=== PATIENT | male | born 1955 | race African-American/Black ===

== ENCOUNTER 2017-10-10 21:33 | Inpatient (IN) | payer OTHER ==
[2017-10-10] MEDS ORDERED: Aspirin Low Dose CHEW TAB* 81 MG PO ONE (22:06)
[2017-10-10 22:30] LABS: ABS Basophils 0.2 10^3/ul (0-0.2); ABS Eosinophils 0.4 10^3/ul (0-0.6); ABS Monocytes 0.9 10^3/ul (0-0.8); ABS Neutrophils 7.4 10^3/ul (1.5-7.7); ABS Nucleated RBC 0 10^3/ul; Eosinophil % 3.7 % (0-6); Hematocrit 30 % (42-52); Hemoglobin 10.1 g/dl (14.0-18.0); Lymphocyte % 18.3 % (25-47); Mean Corpuscular HGB Conc 33 g/dl (31-36); Mean Corpuscular Hemoglobin 30 pg (27-31); Mean Corpuscular Volume 89 fL (80-94); Mean Platelet Volume 7 um3 (7.4-10.4); Nucleated Red Blood Cells % 0; Platelet Count 260 10^3/ul (150-450); Red Cell Distribution Width 15 % (10.5-15)
[2017-10-10 22:40] LABS: INR 2.62 (0.77-1.02)
[2017-10-10 22:45] LABS: EGFR Non-African American 15.8 (>60)
[2017-10-10] MEDS ORDERED: Furosemide IV* 10 MG/ML 2 ML VIAL (20 MG) IV ONE (22:52)
[2017-10-10] MEDS ORDERED: Acetaminophen TAB* 325 MG PO PRN (23:09)
[2017-10-10] MEDS ORDERED: Furosemide IV* 10 MG/ML 10 ML VIAL (100 MG) IV ONE (23:20)
[2017-10-10] MEDS: Morphine INJ* 2 MG/ML 1 ML SYRINGE (TWO MG - NEW SYRINGE VERSION) IV PRN (23:36)
[2017-10-11] MEDS ORDERED: Albuterol HFA INHALER* 8 gm MDI INH PRN (01:02)
--- NOTE | 2017-10-11 01:53 | ED ---
Mike Adams Gabriel, scribed for Adonis Richardson on 10/10/17 at 2207 . HPI Chest Pain - HPI Summary HPI Summary: This patient is a 62 year old M BIBA from half-way to [facility] accompanied by correction officers with a chief complaint of CP since earlier today. Symptoms aggravated by exertion. Patient reports lower back pain, LE edema, inability to move right leg due to pain in groin, and pain down both arms. Patient has a Hx of CHF, kidney failure, COPD, had a triple bypass, and PNA recently. Patient was seen at [facility] and sent here for CHF evaluation. - History of Current Complaint Chief Complaint: EDChestWallPain Time Seen by Provider: 10/10/17 21:58 Hx Obtained From: Patient, Medical Records Onset/Duration: Started Hours Ago - earlier today, Still Present Timing: Constant Initial Severity: Moderate Current Severity: Moderate Pain Intensity: 0 Chest Pain Radiates: Yes Chest Pain Radiates To:: Back, Arm Aggravating Factor(s): Exertion Associated Signs and Symptoms: Positive: Chest Pain, Other: - ower back pain, LE edema, inability to move right leg due to pain in groin, and pain down both arms. - Allergy/Home Medications Allergies/Adverse Reactions: Allergies Allergy/AdvReac Type Severity Reaction Status Date / Time VALERIE Inhibitors Allergy Swelling Verified 10/10/17 21:57 Home Medications: Home Medications Albuterol HFA INHALER* [Ventolin HFA Inhaler*] 1 puff INH Q4H PRN 10/10/17 [ History Confirmed 10/10/17] Aspirin EC Low Dose* [Ecotrin EC Low Dose 81 MG*] 81 mg PO DAILY 10/10/17 [ History Confirmed 10/10/17] Atorvastatin* [Lipitor*] 20 mg PO DAILY 10/10/17 [History Confirmed 10/10/17] Calcium Carbonate-Cholecalcife [Calcium 500+D 500-200 mg-Unit] 1 tab PO BID [History Confirmed 10/10/17] Carvedilol TAB* [Coreg TAB*] 25 mg PO BID 10/10/17 [History Confirmed 10/10/17] Ferrous Sulfate TAB* 325 mg PO BID 10/10/17 [History Confirmed 10/10/17] Fluticas/Salmet 115/21 HFA(NF) [Advair HFA 115/21 (NF)] 1 puff INH 10/10/17 [ History] Furosemide TAB* [Lasix TAB*] 80 mg PO DAILY 10/10/17 [History Confirmed 10/10/17 ] Insulin GLARGINE(*) [Lantus(*)] 15 units SUBCUT QPM 10/10/17 [History Confirmed 10/10/17] Insulin GLARGINE(*) [Lantus(*)] 25 units SUBCUT QAM 10/10/17 [History Confirmed 10/10/17] Isosorbide Mononitrate ER TAB* [Imdur ER TAB*] 30 mg PO DAILY 10/10/17 [History Confirmed 10/10/17] Minerin Cream* [Minerin*] 1 TOPICAL 10/10/17 [History] Warfarin TAB(*) [Coumadin TAB(*)] 6 mg PO DAILY@1700 10/10/17 [History Confirmed 10/10/17] amLODIPine TAB* [Norvasc 5 mg TAB*] 10 mg PO DAILY 10/10/17 [History Confirmed 10/10/17] PMH/Surg Hx/FS Hx/Imm Hx Cardiovascular History: Reports: Hx Congestive Heart Failure, Hx Coronary Artery Disease Respiratory History: Reports: Hx Chronic Obstructive Pulmonary Disease (COPD), Hx Pneumonia History: Reports: Hx Chronic Renal Failure Neurological History: Denies: Hx CVA - Surgical History Surgery Procedure, Year, and Place: triple bypass 03/27 - Immunization History Date of Tetanus Vaccine: unk Date of Influenza Vaccine: unk Infectious Disease History: No Infectious Disease History: Denies: Traveled Outside the [place] in Last 30 Days - Family History Known Family History: Positive: Cardiac Disease, Hypertension - Social History Occupation: Unemployed Lives: Jail - half-way Alcohol Use: None Substance Use Type: Reports: None Smoking Status (MU): Heavy Every Day Tobacco Smoker Review of Systems Positive: Chest Pain Positive: Edema - Le bilat , Other - lower back pain, arm pain, and RLE pain All Other Systems Reviewed And Are Negative: Yes Physical Exam - Summary Physical Exam Summary: Appearance: Well appearing, no pain distress Skin: warm, dry, reflects adequate perfusion Head/face: normal Eyes: EOMI, CARINA ENT: normal Neck: supple, non-tender Respiratory: patient has bilateral rales Cardiovascular: RRR, pulses symmetrical Abdomen: non-tender, soft Bowel: present Musculoskeletal: bilateral pedal edema strength/ROM intact Neuro: normal, sensory motor intact, A&Ox3 Triage Information Reviewed: Yes Vital Signs On Initial Exam: Initial Vitals Temp Pulse Resp BP Pulse Ox 98.0 F 66 16 130/61 96 10/10/17 21:40 10/10/17 21:40 10/10/17 21:40 10/10/17 21:40 10/10/17 21:40 Vital Signs Reviewed: Yes - [place] Coma Scale Coma Scale Total: 15 Diagnostics - Vital Signs Vital Signs Temp Pulse Resp BP Pulse Ox 10/10/17 21:40 98.0 F 66 16 130/61 96 - Laboratory Result Diagrams: 10/10/17 22:21 10/10/17 22:21 Lab Statement: Any lab studies that have been ordered have been reviewed, and results considered in the medical decision making process. - Radiology CXR Radiology Interpretation Completed By: ED Physician - No acute disease - EKG 22:02 Cardiac Rate: NL EKG Rhythm: Sinus Rhythm - at 70 BPM EKG Interpretation: inverse T waves in the anterior lateral leads - Additional Comments Diagnostic Additional Comments: Venous Doppler study reveals per radiologist, right common femoral vein proximal greater saphenous vein profunda femoral vein popliteal vein posterior tibial vein have normal compressibility normal color flow and normal spectral Doppler wave forms. ED physician has reviewed this report. Chest Pain Course/Dx - Course Assessment/Plan: This patient is a 62 year old M BIBA from half-way to [facility] accompanied by correction officers with a chief complaint of CP since earlier today. Patient reports lower back pain, LE edema, inability to move right leg due to pain in groin, and pain down both arms. An EKG reveals inverse T waves in the anterior lateral leads. CXR reveals, No acute disease. Venous Doppler study reveals per radiologist, right common femoral vein proximal greater saphenous vein profunda femoral vein popliteal vein posterior tibial vein have normal compressibility normal color flow and normal spectral Doppler wave forms. Bloodwork was obtained. In the ED course the patient was given Lasix, ASA, morphine, and tylenol. Patient will be admitted with follow up from Dr. Mcdowell. The patient is agreeable with this plan. - Chest Pain Differential Diagnosis/HQI/PQRI: Acute FL, ACS, CHF, Lower Respiratory Infection , Pulmonary Edema - Diagnoses Provider Diagnoses: Ruled out for myocardial infarction, Chest pain, Renal failure, CHF ( congestive heart failure) - Provider Notifications Discussed Care Of Patient With: Cy Mcdowell Time Discussed With Above Provider: 23:13 Instructed by Provider To: Admit As Inpatient - Critical Care Time Critical Care Time: 30-74 min Discharge - Discharge Plan Condition: Fair Disposition: ADMITTED TO [facility] The documentation as recorded by the Mike briones Gabriel accurately reflects the service I personally performed and the decisions made by Debra nunez Emmanuel.
[2017-10-11] MEDS ORDERED: Dextrose 50% Syringe 50 ML* 25 GM/50 ML SYRINGE IV PUSH PRN (02:48)
[2017-10-11 03:41] LABS: ABS Basophils 0.1 10^3/ul (0-0.2); ABS Eosinophils 0.4 10^3/ul (0-0.6); ABS Monocytes 1.1 10^3/ul (0-0.8); ABS Neutrophils 7.8 10^3/ul (1.5-7.7); ABS Nucleated RBC 0 10^3/ul; Eosinophil % 3.4 % (0-6); Hematocrit 27 % (42-52); Hemoglobin 8.9 g/dl (14.0-18.0); Mean Corpuscular HGB Conc 32 g/dl (31-36); Mean Corpuscular Hemoglobin 29 pg (27-31); Mean Corpuscular Volume 90 fL (80-94); Mean Platelet Volume 8 um3 (7.4-10.4); Nucleated Red Blood Cells % 0; Platelet Count 237 10^3/ul (150-450); Red Blood Count 3.05 10^6/ul (4.0-5.4); Red Cell Distribution Width 16 % (10.5-15); White Blood Count 11.4 10^3/ul (3.5-10.8)
[2017-10-11 03:54] LABS: EGFR Non-African American 15.2 (>60)
--- NOTE | 2017-10-11 08:16 | RAD ---
INDICATION: Shortness of breath COMPARISON: None. TECHNIQUE: Single AP portable view of the chest was obtained. FINDINGS: Image quality is compromised due to the relative inferiority of a portable chest x-ray. There are sternotomy wires noted. The heart and mediastinum exhibit normal size and contour. There are hazy densities overlying the mid-level and lower lung slightly worse in the left than the right. The pulmonary vasculature is mildly engorged and indistinct. Visualized bones are normal for the patient's age. IMPRESSION: In the correct clinical setting the chest x-ray findings could be compatible with exacerbation of congestive heart failure.
[2017-10-11] MEDS: Mometasone/Formoter 100/5 MDI INH SCH ×2 (08:18→21:09)
--- NOTE | 2017-10-11 08:21 | RAD ---
HISTORY: Congestive heart failure TECHNIQUE: Multiple transverse and longitudinal ultrasound images were obtained of the veins of the right lower extremity using grayscale, color Doppler, and spectral Doppler imaging with and without compression and with augmentation. FINDINGS: VEINS: The common femoral vein, deep femoral vein, femoral vein and popliteal vein are compressible throughout their course, with normal flow on color Doppler imaging and normal response to augmentation on spectral Doppler imaging. SOFT TISSUES: Grossly normal. No large popliteal fossa cyst was identified. IMPRESSION: No sonographic evidence of deep vein thrombosis.
[2017-10-11] MEDS ORDERED: Potassium Chlor TAB* 20 MEQ TAB.ER PO ONE (08:30)
[2017-10-11] MEDS ORDERED: Furosemide IV* 10 MG/ML 10 ML VIAL (100 MG) IV ONE (08:30)
[2017-10-11] MEDS: Ferrous Sulfate TAB* 325 MG PO SCH ×2 (09:01→20:54)
[2017-10-11] MEDS: Atorvastatin* 20 MG TAB PO SCH (09:01)
[2017-10-11] MEDS: amLODIPine TAB* 5 MG PO SCH (09:01)
[2017-10-11] MEDS: Aspirin EC Low Dose* 81 MG TAB.EC PO SCH (09:01)
[2017-10-11] MEDS: Isosorbide Mononitrate ER TAB* 30 MG PO SCH (09:01)
[2017-10-11] MEDS: Carvedilol TAB* 25 MG PO SCH ×2 (09:01→20:54)
[2017-10-11] MEDS: Calcium/Vitamin D TAB 250/125* TAB PO SCH ×2 (09:01→20:54)
[2017-10-11] MEDS: Insulin LISPRO* 1 UNITS UNIT SUBCUT SCH ×4 (09:05→20:51)
[2017-10-11] MEDS: Insulin GLARGINE(*) 1 UNITS UNIT SUBCUT SCH (09:06)
[2017-10-11] MEDS: Moisturizing CREAM* 120 GM JAR TOPICAL SCH ×2 (09:12→20:59)
--- NOTE | 2017-10-11 11:59 | HP ---
HISTORY AND PHYSICAL: DATE OF ADMISSION: 10/10/17. TIME OF EVALUATION: 11 p.m. PRIMARY CARE PROVIDER: [facility]. CHIEF COMPLAINT: Shortness of breath/weight gain sent by long-term facility to evaluate for CHF with no history of coronary disease. HISTORY OF PRESENT ILLNESS: Mr. Wright is a 62-year-old gentleman who comes to the hospital from [facility] and was sent there for evaluation because of shortness of breath and weight gain. The patient was sent to rule out congestive heart failure. There was a noted history of coronary disease status post 3-vessel coronary artery bypass in 2014. I do not have details about the anatomy of that procedure. The patient states that he has not had the stress test or other cardiac workup since. He denies any history of cardiac catheterization. Now the patient apparently gained 8 pounds between September 19 and October 10. On the he was 218 pounds and then he weighed 226 pounds today. The patient is on oral Lasix in the outpatient setting at a substantial dose (80 mg daily). The patient is on a salt- controlled diet, I presume. Patient has a history of congestive heart failure, renal failure (documented creatinine of 4 earlier this year), COPD and recently had pneumonia. PAST MEDICAL HISTORY: 1. COPD. 2. Renal failure - CKD stage 3/4. 3. History of congestive heart failure. 4. History of triple bypass/CAD. 5. History of pneumonia recently. 6. Gait disorder - uses a wheelchair for long distances. 7. Nephrotic syndrome likely secondary to diabetes. 8. Insulin-dependent type 2 diabetes. 9. Peripheral vascular disease. 10. Tobacco abuse. 11. Tuberculosis/treated. ADMISSION/OUTPATIENT MEDICATIONS: 1. Lasix 80 mg by mouth daily. 2. Norvasc 10 mg by mouth daily. 3. Lipitor 20 mg by mouth daily. 4. Ferrous sulfate 325 mg by mouth twice daily. 5. Calcium with D (500/200) twice daily. 6. Zantac 150 mg by mouth twice daily. 7. Imdur 30 mg by mouth daily. 8. Coreg 25 mg by mouth twice daily. 9. Enteric-coated aspirin 81 mg by mouth daily. 10. Coumadin 6 mg q.h.s. 11. Lantus 25 units in the morning and 15 units in the evening. 12. Advair 100/50 two puffs twice daily. 13. Albuterol 2 puffs 4 times daily p.r.n. shortness of breath. 14. Eucerin cream daily for dry skin. ALLERGIES: VALERIE INHIBITORS. FAMILY HISTORY: Reviewed, but noncontributory in this 62-year-old gentleman with known coronary disease who presents with potentially congestive heart failure symptoms. SOCIAL HISTORY: The patient is incarcerated. He smokes. He does not drink. He is in long-term. He is full code. PHYSICAL EXAMINATION GENERAL APPEARANCE: Elderly appearing man. He is in a [facility]. He is handcuffed. He is surrounded by 2 police officers, clearly a prisoner. In no apparent distress. He is not in pain at this time. He is awake, alert and oriented x3. VITAL SIGNS: Temperature afebrile at 98 degrees Fahrenheit, blood pressure 130s /60s, pulse 60s to 70s, respirations 16 to 19 and unlabored, oxygen saturation 96% on room air. HEENT: Oropharynx is clear. Mucous membranes are moist. NECK: No bruits appreciated. Midline trachea. Normal thyroid. LUNGS: Chest clear breast sounds anteriorly and posteriorly. No increased work of breathing. No tachypnea noted. Lungs were clear at the bases posteriorly. HEART: Regular rate and rhythm. No murmurs appreciated. Chest wall: Sternal scar noted from history of CABG. Sternum is nontender to palpation, though he states there was some midsternal discomfort, although this was denied earlier. ABDOMEN: Soft, nontender and obese. Bowel sounds present. SKIN: Dry and intact. EXTREMITIES: Without clubbing, cyanosis. 1+ edema bilaterally - not extensive. ADMISSION DATA: White blood cell count 11, hemoglobin 10.1, platelets 260. INR 2.62 (on Coumadin). Blood chemistry was significant for the BUN and creatinine ratio of 60 to 3.9 for ratio of 15.4, glucose 112. Troponin initially 0.05, repeat 0.06, third repeat 0.05 (assumed low positivity based on renal failure), BNP elevated 553 (again unclear to interpret based on renal failure), total protein and albumin 6.9/3.5, toxicology negative for alcohol or other substances. EKG, normal sinus rhythm. There are lateral ST/T-wave inversions and ischemic- appearing changes with no baseline to which I can compared. Venous Doppler studies of bilateral lower extremities did not show any DVT. Chest x-ray was reviewed directly by me and showed vascular fullness and congestion perhaps consistent with fluid overload/congestive heart failure. IMPRESSION: Mr. Wright is a 62-year-old with a known coronary disease status post CABG of few years ago without many subsequent cardiac issues although on a substantial outpatient cardiac regimen who now presents with a weight gain and a clinical presentation and chest radiologic findings consistent with congestive heart failure and fluid overload. PLAN BY MEDICAL PROBLEM: 1. Congestive heart failure exacerbation. I will start patient on IV diuretics. He received IV Lasix 20 mg in the emergency room along with he has been given an extra 60 mg IV considering his substantial outpatient dose of 80. It is true that with bowel edema/intestinal edema, Lasix absorption might be impaired, so smaller doses of IV Lasix might work, but I do think that it is likely beneficial to him to get a good early diuresis to reverse the course of any early CHF. Right now, the patient has minimal to no oxygen requirement and is compensating well. We will continue his other cardiac medications including Norvasc, Lipitor, Imdur, Coreg, and aspirin. 2. For his insulin-dependent diabetes, we will continue his Lantus regimen and I will add Humalog sliding scale and provide a consistent carbohydrate diet. 3. For COPD, we will continue his Advair inhaler and albuterol inhaler as per outpatient regimen. 4. Continue iron supplementation for iron-deficiency anemia as well as his Zantac for GERD. 5. In terms of further ischemic workup, I think that can be delayed to the outpatient setting. I think he is clearly fluid overloaded at this point. I think, if he sheds a few pounds and his symptoms resolve, further evaluations like an echocardiogram can wait for subsequent days or into the outpatient setting, which is also true for a stress test. Again, I think the low positivity of the troponins is more to do with his poor renal clearance and cardiac strain than to do with an ischemic process, given the nature of his presenting complaints. 6. Full code. 7. Surrogate decision maker is the [facility]. TIME SPENT: Total time taken to admit Mr. Wright was 65 minutes, greater than half the time spent at the bedside going over the history and physical examination face- to-face with the patient. [id number]/[facility] #: [id number] [facility]
[2017-10-11] MEDS ORDERED: Metolazone TAB* 5 MG PO ONE (17:28)
--- NOTE | 2017-10-11 17:58 | PN ---
Subjective Date of Service: 10/11/17 Interval History: Patient seen and examined. Still SOB, cannot tolerate off O2 even at rest. Still with chest pressure with inspiration. Denies n/v, denies fatigue, denies headache. Guards at bedside. Objective Active Medications: Acetaminophen (Tylenol Tab*) 650 mg PO Q4H PRN PRN Reason: FEVER/PAIN Last Admin: 10/11/17 01:57 Dose: 650 mg Albuterol (Ventolin Hfa Inhaler*) 1 puff INH Q4H PRN PRN Reason: SHORTNESS OF BREATH Amlodipine Besylate (Norvasc Tab*) 10 mg PO DAILY [facility] Last Admin: 10/11/17 09:01 Dose: 10 mg Aspirin (Aspirin Ec Low Dose*) 81 mg PO DAILY [facility] Last Admin: 10/11/17 09:01 Dose: 81 mg Atorvastatin Calcium (Lipitor*) 20 mg PO DAILY [facility] Last Admin: 10/11/17 09:01 Dose: 20 mg Calcium/Vitamin D (Oscal D Tab 250/125*) 2 tab PO BID [facility] Last Admin: 10/11/17 09:01 Dose: 2 tab Carvedilol (Coreg Tab*) 25 mg PO BID [facility] Last Admin: 10/11/17 09:01 Dose: 25 mg Dextrose (D50w Syringe 50 Ml*) 12.5 gm IV PUSH .FOR FS < 60 - SS PRN PRN Reason: FS < 60 Ferrous Sulfate (Ferrous Sulfate Tab*) 325 mg PO BID [facility] Last Admin: 10/11/17 09:01 Dose: 325 mg Insulin Glargine (Lantus(*)) 25 units SUBCUT QAM [facility] Last Admin: 10/11/17 09:06 Dose: 25 units Insulin Glargine (Lantus(*)) 15 units SUBCUT QPM [facility] Insulin Human Lispro (Humalog*) 0 units SUBCUT ACHS [facility] PRN Reason: Protocol Last Admin: 10/11/17 12:42 Dose: 9 units Isosorbide Mononitrate (Imdur Er Tab*) 30 mg PO DAILY [facility] Last Admin: 10/11/17 09:01 Dose: 30 mg Mometasone Furoate/Formoterol Fumar (Dulera 100/5 Mdi*) 2 puff INH BID [facility] PRN Reason: Protocol Last Admin: 10/11/17 08:18 Dose: 2 puff Morphine Sulfate (Morphine Inj (Syringe)*) 2 mg IV Q4H PRN PRN Reason: PAIN Last Admin: 10/10/17 23:36 Dose: 2 mg Multi-Ingredient Ointment (Hydrocerin*) 1 applic TOPICAL BID [facility] Last Admin: 10/11/17 09:12 Dose: 1 applic Warfarin Sodium (Coumadin Tab(*)) 6 mg PO DAILY@1700 [facility] PRN Reason: Protocol Vital Signs - 8 hr 10/11/17 10/11/17 11:47 16:10 Temperature 98.1 F 97.9 F Pulse Rate 71 72 Respiratory 20 16 Rate Blood Pressure 147/59 117/50 (mmHg) O2 Sat by Pulse 98 98 Oximetry Oxygen Devices in Use Now: Nasal Cannula Appearance: Alert, NAD Ears/Nose/Mouth/Throat: Mucous Membranes Moist, - - poor dentition Neck: NL Appearance and Movements; NL JVP, Trachea Midline Respiratory: Symmetrical Chest Expansion and Respiratory Effort - rales right base, diminished left, no wheeze Cardiovascular: NL Sounds; No Murmurs; No JVD, RRR - sternotomy scar noted Extremities: No Edema, No Clubbing, Cyanosis - ankle shackles in place, neurovascularly intact, skin intact Skin: No Rash or Ulcers Neurological: Alert and Oriented x 3, NL Sensation, NL Muscle Strength and Tone Nutrition: Taking PO's Result Diagrams: 10/11/17 03:25 10/11/17 03:25 Microbiology and Other Data: Microbiology 10/11/17 01:26 Nasal Screen MRSA (PCR)(OLESYA) - Final Nasal Mrsa Negative EKG Data: EKG INTERPRETATION ECG Report Patient Name JAZMYN THOMAS [id number] Birthdate 1955 Sex M Order Number [id number] Date of ECG 10/11/2017 15:09:33 Interpretation Sinus rhythm.normal P axis, V-rate 60- 99 Borderline prolonged DE interval.DE >202, V-rate 50- 90 Probable left atrial enlargement.P >50mS, <-0.10mV V1 Abnrm T, consider ischemia, anterolateral lds.T <-0.20mV, I aVL V2-V6 Baseline wander in lead(s) V2 - ABNORMAL ECG - ECG NEEDS E-SIGNING Please go to [email or web address] website to view the EKG image Assess/Plan/Problems-Billing Assessment: This is a 62 year old AA male patient, currently incarcerated, with hx sig for CAD/CABG, HF, CKD, DM, that experienced ongoing SOB with significant acute weight gain that has been admitted for acute (on chronic??) CHF. - Patient Problems (1) CKD (chronic kidney disease) stage 4, GFR 15-29 ml/min Code(s): N18.4 - CHRONIC KIDNEY DISEASE, STAGE 4 (SEVERE) SNOMED Code(s): 883414101 Comment: - Bump up in creat from 4-5 from agressive diuresis (4 is baseline) - continue to monitor daily (2) CHF (congestive heart failure) Code(s): I50.9 - HEART FAILURE, UNSPECIFIED SNOMED Code(s): 65112247 Comment: - s/p lasix IV 80/60/20 IVP - Will try metolazone one dose now - Trend BNP - Continuous O2 - ECHO in AM, no records to compare - Low Na diet, nutrition consult (3) IDDM (insulin dependent diabetes mellitus) Code(s): E11.9 - TYPE 2 DIABETES MELLITUS WITHOUT COMPLICATIONS; Z79.4 - APPLICATION SECURITY DEVELOPER (CURRENT) USE OF INSULIN SNOMED Code(s): 06790861 Comment: - BG AC and HS - Last A1c 8.2 - Continue insulin regimen with SS coverage (4) S/P CABG x 3 Code(s): Z95.1 - PRESENCE OF AORTOCORONARY BYPASS GRAFT SNOMED Code(s): 418036699 Comment: - CABG in 2014 - No records from facility - Continue Coreg, ASA, statin Status and Disposition: Remain inpatient for additional diuresis and ECHO. Counseling and/or Coordination of Care Minutes: coordinated with patient and YESSICA Antoine.
[2017-10-11] MEDS ORDERED: Insulin GLARGINE(*) 1 UNITS UNIT SUBCUT SCH (18:00)
[2017-10-11] MEDS: Warfarin TAB(*) 6 MG PO SCH (18:11)
[2017-10-12 05:56] LABS: ABS Basophils 0.1 10^3/ul (0-0.2); ABS Eosinophils 0.4 10^3/ul (0-0.6); ABS Monocytes 1.1 10^3/ul (0-0.8); ABS Neutrophils 6.6 10^3/ul (1.5-7.7); ABS Nucleated RBC 0.01 10^3/ul; Eosinophil % 4.3 % (0-6); Hematocrit 29 % (42-52); Hemoglobin 9.5 g/dl (14.0-18.0); Lymphocyte % 19.7 % (25-47); Mean Corpuscular HGB Conc 33 g/dl (31-36); Mean Corpuscular Hemoglobin 29 pg (27-31); Mean Corpuscular Volume 89 fL (80-94); Mean Platelet Volume 8 um3 (7.4-10.4); Nucleated Red Blood Cells % 0.1; Platelet Count 257 10^3/ul (150-450); Red Blood Count 3.28 10^6/ul (4.0-5.4); Red Cell Distribution Width 16 % (10.5-15); White Blood Count 10.3 10^3/ul (3.5-10.8)
[2017-10-12 06:05] LABS: EGFR Non-African American 14.4 (>60)
[2017-10-12] MEDS: Mometasone/Formoter 100/5 MDI INH SCH ×2 (07:59→20:07)
[2017-10-12] MEDS: Insulin LISPRO* 1 UNITS UNIT SUBCUT SCH ×4 (08:51→22:10)
[2017-10-12] MEDS: Calcium/Vitamin D TAB 250/125* TAB PO SCH ×2 (08:54→20:10)
[2017-10-12] MEDS: Isosorbide Mononitrate ER TAB* 30 MG PO SCH (08:54)
[2017-10-12] MEDS: Aspirin EC Low Dose* 81 MG TAB.EC PO SCH (08:55)
[2017-10-12] MEDS: Atorvastatin* 20 MG TAB PO SCH (08:55)
[2017-10-12] MEDS: Carvedilol TAB* 25 MG PO SCH ×2 (08:55→20:10)
[2017-10-12] MEDS: amLODIPine TAB* 5 MG PO SCH (08:55)
[2017-10-12] MEDS: Ferrous Sulfate TAB* 325 MG PO SCH ×2 (08:55→20:10)
[2017-10-12] MEDS: Insulin GLARGINE(*) 1 UNITS UNIT SUBCUT SCH ×2 (08:56→18:05)
--- NOTE | 2017-10-12 11:38 | PN ---
Subjective Date of Service: 10/12/17 Interval History: Patient seen and examined. States he feels a little better but still SOB, has not been out of bed much. Also states his substernal chest burning and left sided chest pain that he felt before arrival is improved, but says the quality of that pain did feel the same as when he needed the bypass surgery two years ago. Denies headache, moderate fatigue noted, and some general weakness, feeling winded. Denies any further complaints. Objective Active Medications: Acetaminophen (Tylenol Tab*) 650 mg PO Q4H PRN PRN Reason: FEVER/PAIN Last Admin: 10/11/17 01:57 Dose: 650 mg Albuterol (Ventolin Hfa Inhaler*) 1 puff INH Q4H PRN PRN Reason: SHORTNESS OF BREATH Amlodipine Besylate (Norvasc Tab*) 10 mg PO DAILY [facility] Last Admin: 10/12/17 08:55 Dose: 10 mg Aspirin (Aspirin Ec Low Dose*) 81 mg PO DAILY [facility] Last Admin: 10/12/17 08:55 Dose: 81 mg Atorvastatin Calcium (Lipitor*) 20 mg PO DAILY [facility] Last Admin: 10/12/17 08:55 Dose: 20 mg Calcium/Vitamin D (Oscal D Tab 250/125*) 2 tab PO BID [facility] Last Admin: 10/12/17 08:54 Dose: 2 tab Carvedilol (Coreg Tab*) 25 mg PO BID [facility] Last Admin: 10/12/17 08:55 Dose: 25 mg Dextrose (D50w Syringe 50 Ml*) 12.5 gm IV PUSH .FOR FS < 60 - SS PRN PRN Reason: FS < 60 Ferrous Sulfate (Ferrous Sulfate Tab*) 325 mg PO BID [facility] Last Admin: 10/12/17 08:55 Dose: 325 mg Insulin Glargine (Lantus(*)) 25 units SUBCUT QAM [facility] Last Admin: 10/12/17 08:56 Dose: 25 units Insulin Glargine (Lantus(*)) 25 units SUBCUT QPM [facility] Insulin Human Lispro (Humalog*) 0 units SUBCUT ACHS [facility] PRN Reason: Protocol Last Admin: 10/12/17 08:51 Dose: Not Given Isosorbide Mononitrate (Imdur Er Tab*) 30 mg PO DAILY [facility] Last Admin: 10/12/17 08:54 Dose: 30 mg Mometasone Furoate/Formoterol Fumar (Dulera 100/5 Mdi*) 2 puff INH BID [facility] PRN Reason: Protocol Last Admin: 10/12/17 07:59 Dose: 2 puff Morphine Sulfate (Morphine Inj (Syringe)*) 2 mg IV Q4H PRN PRN Reason: PAIN Last Admin: 10/10/17 23:36 Dose: 2 mg Multi-Ingredient Ointment (Hydrocerin*) 1 applic TOPICAL BID [facility] Last Admin: 10/11/17 20:59 Dose: 1 applic Warfarin Sodium (Coumadin Tab(*)) 6 mg PO DAILY@1700 [facility] PRN Reason: Protocol Last Admin: 10/11/17 18:11 Dose: 6 mg Vital Signs - 8 hr 10/12/17 10/12/17 10/12/17 04:09 07:41 08:00 Temperature 98.2 F 97.9 F Pulse Rate 71 65 Respiratory 20 20 20 Rate Blood Pressure 149/69 121/50 (mmHg) O2 Sat by Pulse 98 96 Oximetry Oxygen Devices in Use Now: Nasal Cannula Appearance: Alert, NAD Ears/Nose/Mouth/Throat: NL Teeth, Lips, Gums, Clear Oropharnyx, Mucous Membranes Moist Neck: NL Appearance and Movements; NL JVP, Trachea Midline Respiratory: Symmetrical Chest Expansion and Respiratory Effort, - - rales improved, no wheeze appreciated, clear at the apices Cardiovascular: NL Sounds; No Murmurs; No JVD, RRR Abdominal: NL Sounds; No Tenderness; No Distention Skin: No Rash or Ulcers Neurological: Alert and Oriented x 3, NL Muscle Strength and Tone Nutrition: Taking PO's Result Diagrams: 10/12/17 05:13 10/12/17 05:13 Microbiology and Other Data: Microbiology 10/11/17 01:26 Nasal Screen MRSA (PCR)(OLESYA) - Final Nasal Mrsa Negative EKG Data: EKG INTERPRETATION ECG Report Patient Name JAZMYN THOMAS [id number] Birthdate 1955 Sex M Order Number [id number] Date of ECG 10/11/2017 15:09:33 Interpretation Sinus rhythm.normal P axis, V-rate 60- 99 Borderline prolonged WI interval.WI >202, V-rate 50- 90 Probable left atrial enlargement.P >50mS, <-0.10mV V1 Abnrm T, consider ischemia, anterolateral lds.T <-0.20mV, I aVL V2-V6 Baseline wander in lead(s) V2 - ABNORMAL ECG - ECG NEEDS E-SIGNING Please go to [email or web address] website to view the EKG image Assess/Plan/Problems-Billing Assessment: This is a 62 year old AA male patient, currently incarcerated, with hx sig for CAD/CABG, HF, CKD, DM, that experienced ongoing SOB with significant acute weight gain that has been admitted for acute (on chronic??) CHF. - Patient Problems (1) CKD (chronic kidney disease) stage 4, GFR 15-29 ml/min Code(s): N18.4 - CHRONIC KIDNEY DISEASE, STAGE 4 (SEVERE) SNOMED Code(s): 435794475 Comment: - Initial bump up in creat from 4-5 from agressive diuresis (4 is baseline), back to 4.25 today - Continue to monitor (2) CHF (congestive heart failure) Code(s): I50.9 - HEART FAILURE, UNSPECIFIED SNOMED Code(s): 02509885 Comment: - s/p lasix IV 80/60/20 IVP and metolazone 5mg with clinical improvement - Recommend Bumex and metolazone?, as it appears he may be refractory to escalating doses of lasix at this point, will reassess after ECHO - Continuous O2, walk on and off and check sats - BNP trending down - ECHO today to asses LV function, no records to compare - Low Na diet, nutrition consult (3) IDDM (insulin dependent diabetes mellitus) Code(s): E11.9 - TYPE 2 DIABETES MELLITUS WITHOUT COMPLICATIONS; Z79.4 - MEDICAL SCHEDULER (CURRENT) USE OF INSULIN SNOMED Code(s): 36435801 Comment: - BG AC and HS - Last A1c 8.2 - Continue insulin regimen with SS coverage, will increase lantus to 25 at night, sugars high today (4) S/P CABG x 3 Code(s): Z95.1 - PRESENCE OF AORTOCORONARY BYPASS GRAFT SNOMED Code(s): 635970582 Comment: - CABG in 2015 - No records from facility - Continue Coreg, ASA, statin - Given chest pain and burning at rest with negative trops, would recommend lexiscan stress test after echo Status and Disposition: Remain inpatient for additional diuresis, ECHO and likely lexiscan. Counseling and/or Coordination of Care Minutes: coordinated with patient and staff.
[2017-10-12] MEDS: Moisturizing CREAM* 120 GM JAR TOPICAL SCH ×2 (12:38→22:13)
[2017-10-12] MEDS: Warfarin TAB(*) 6 MG PO SCH (18:06)
[2017-10-12] MEDS ORDERED: Nitroglycerin TAB 0.4 MG* 0.4 MG TAB SL PRN (23:05)
[2017-10-12] MEDS: Morphine INJ* 2 MG/ML 1 ML SYRINGE (TWO MG - NEW SYRINGE VERSION) IV PRN (23:47)
[2017-10-12] MEDS ORDERED: Metoprolol Tartrate IV* 1 MG/ML 5 ML VIAL IV STA (23:52)
[2017-10-12] MEDS ORDERED: Diltiazem IV* 5 MG/ML 5 ML VIAL (for loading dose/IV Push) (25 MG) IV SLOW PU ONE (23:52)
[2017-10-13] MEDS: Mometasone/Formoter 100/5 MDI INH SCH ×2 (07:56→21:06)
[2017-10-13] MEDS ORDERED: Perflutren Lipid Microsphere* 3 ML VIAL ONE (08:29)
[2017-10-13] MEDS: Insulin LISPRO* 1 UNITS UNIT SUBCUT SCH ×4 (09:38→21:40)
[2017-10-13] MEDS: Ferrous Sulfate TAB* 325 MG PO SCH ×2 (09:47→21:39)
[2017-10-13] MEDS: Aspirin EC Low Dose* 81 MG TAB.EC PO SCH (09:47)
[2017-10-13] MEDS: Carvedilol TAB* 25 MG PO SCH ×2 (09:47→21:39)
[2017-10-13] MEDS: Isosorbide Mononitrate ER TAB* 30 MG PO SCH (09:47)
[2017-10-13] MEDS: Insulin GLARGINE(*) 1 UNITS UNIT SUBCUT SCH ×2 (09:47→18:41)
[2017-10-13] MEDS: Calcium/Vitamin D TAB 250/125* TAB PO SCH ×2 (09:48→21:39)
[2017-10-13] MEDS: amLODIPine TAB* 5 MG PO SCH (09:48)
[2017-10-13] MEDS: Atorvastatin* 20 MG TAB PO SCH (09:48)
[2017-10-13] MEDS: Moisturizing CREAM* 120 GM JAR TOPICAL SCH ×2 (09:48→21:42)
--- NOTE | 2017-10-13 10:42 | PN ---
Subjective Date of Service: 10/13/17 Interval History: Patient seen and examined. Just had ECHO, no report yet. States his breathing is a little better. No chest pain today. Sugars have been labile (84-310). Was able to ambulate, remains on continuous O2. No further complaints. Guards in room, posted at bedside. Objective Active Medications: Acetaminophen (Tylenol Tab*) 650 mg PO Q4H PRN PRN Reason: FEVER/PAIN Last Admin: 10/11/17 01:57 Dose: 650 mg Albuterol (Ventolin Hfa Inhaler*) 1 puff INH Q4H PRN PRN Reason: SHORTNESS OF BREATH Amlodipine Besylate (Norvasc Tab*) 10 mg PO DAILY [facility] Last Admin: 10/13/17 09:48 Dose: 10 mg Aspirin (Aspirin Ec Low Dose*) 81 mg PO DAILY [facility] Last Admin: 10/13/17 09:47 Dose: 81 mg Atorvastatin Calcium (Lipitor*) 20 mg PO DAILY [facility] Last Admin: 10/13/17 09:48 Dose: 20 mg Calcium/Vitamin D (Oscal D Tab 250/125*) 2 tab PO BID [facility] Last Admin: 10/13/17 09:48 Dose: 2 tab Carvedilol (Coreg Tab*) 25 mg PO BID [facility] Last Admin: 10/13/17 09:47 Dose: 25 mg Dextrose (D50w Syringe 50 Ml*) 12.5 gm IV PUSH .FOR FS < 60 - SS PRN PRN Reason: FS < 60 Ferrous Sulfate (Ferrous Sulfate Tab*) 325 mg PO BID [facility] Last Admin: 10/13/17 09:47 Dose: 325 mg Insulin Glargine (Lantus(*)) 25 units SUBCUT QAM [facility] Last Admin: 10/13/17 09:47 Dose: 25 units Insulin Glargine (Lantus(*)) 25 units SUBCUT QPM [facility] Last Admin: 10/12/17 18:05 Dose: 25 units Insulin Human Lispro (Humalog*) 0 units SUBCUT ACHS [facility] PRN Reason: Protocol Last Admin: 10/13/17 09:38 Dose: Not Given Isosorbide Mononitrate (Imdur Er Tab*) 30 mg PO DAILY [facility] Last Admin: 10/13/17 09:47 Dose: 30 mg Mometasone Furoate/Formoterol Fumar (Dulera 100/5 Mdi*) 2 puff INH BID [facility] PRN Reason: Protocol Last Admin: 10/13/17 07:56 Dose: 2 puff Morphine Sulfate (Morphine Inj (Syringe)*) 2 mg IV Q4H PRN PRN Reason: PAIN Last Admin: 10/12/17 23:47 Dose: 2 mg Multi-Ingredient Ointment (Hydrocerin*) 1 applic TOPICAL BID [facility] Last Admin: 10/13/17 09:48 Dose: Not Given Nitroglycerin (Nitroglycerin Tab 0.4 Mg*) 0.4 mg SL Q5M PRN PRN Reason: ANGINA Last Admin: 10/12/17 23:31 Dose: 0.4 mg Warfarin Sodium (Coumadin Tab(*)) 6 mg PO DAILY@1700 [facility] PRN Reason: Protocol Last Admin: 10/12/17 18:06 Dose: 6 mg Vital Signs - 8 hr 10/13/17 10/13/17 02:40 03:23 Temperature 98.3 F Pulse Rate 51 76 Respiratory 20 Rate Blood Pressure 122/57 114/59 (mmHg) O2 Sat by Pulse 95 97 Oximetry Oxygen Devices in Use Now: Nasal Cannula Appearance: Alert, NAD, less fatigued Eyes: No Scleral Icterus, PERRLA Ears/Nose/Mouth/Throat: NL Teeth, Lips, Gums, Mucous Membranes Moist Neck: NL Appearance and Movements; NL JVP, Trachea Midline Respiratory: Symmetrical Chest Expansion and Respiratory Effort - improved air exchange, less crackles bilaterally Cardiovascular: NL Sounds; No Murmurs; No JVD, RRR Abdominal: NL Sounds; No Tenderness; No Distention Extremities: No Edema, No Clubbing, Cyanosis Skin: No Rash or Ulcers Neurological: Alert and Oriented x 3, NL Muscle Strength and Tone Nutrition: Taking PO's Result Diagrams: 10/12/17 05:13 10/12/17 05:13 Microbiology and Other Data: Microbiology 10/11/17 01:26 Nasal Screen MRSA (PCR)(OLESYA) - Final Nasal Mrsa Negative EKG Data: EKG INTERPRETATION ECG Report Patient Name JAMZYN THOMAS [id number] Birthdate 1955 Sex M Order Number [id number] Date of ECG 10/11/2017 15:09:33 Interpretation Sinus rhythm.normal P axis, V-rate 60- 99 Borderline prolonged LA interval.LA >202, V-rate 50- 90 Probable left atrial enlargement.P >50mS, <-0.10mV V1 Abnrm T, consider ischemia, anterolateral lds.T <-0.20mV, I aVL V2-V6 Baseline wander in lead(s) V2 - ABNORMAL ECG - ECG NEEDS E-SIGNING Please go to [email or web address] website to view the EKG image Assess/Plan/Problems-Billing Assessment: This is a 62 year old AA male patient, currently incarcerated, with hx sig for CAD/CABG, HF, CKD, DM, that experienced ongoing SOB with significant acute weight gain that has been admitted for acute (on chronic??) CHF and left sided chest pain. - Patient Problems (1) CKD (chronic kidney disease) stage 4, GFR 15-29 ml/min Code(s): N18.4 - CHRONIC KIDNEY DISEASE, STAGE 4 (SEVERE) SNOMED Code(s): 563764139 Comment: - Initial bump up in creat from 4-5 from agressive diuresis (4 is baseline), back to 4.25 10/12, recheck today - Continue to monitor (2) CHF (congestive heart failure) Code(s): I50.9 - HEART FAILURE, UNSPECIFIED SNOMED Code(s): 76472519 Comment: - s/p lasix IV 80/60/20 IVP and metolazone 5mg with clinical improvement - 7lb weight loss since admission - Will change to bumex today (has been on high dose lasix for 2 years) and may continue metolazone for thiazide action, renal impairment may be cause of diurectic resistence - Continuous O2, sats improved, WOB improved - Recheck BNP today - Check ECHO report today - Low Na diet, nutrition consult - Lexiscan tomorrow (3) IDDM (insulin dependent diabetes mellitus) Code(s): E11.9 - TYPE 2 DIABETES MELLITUS WITHOUT COMPLICATIONS; Z79.4 - DIRECTOR 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 Counseling and/or Coordination of Care Minutes: coordinated with patient and staff
--- NOTE | 2017-10-13 11:15 | ECHO ---
Patient: JAZMYN THOMAS [id number] [facility] Rec#: [id number] : 1955 Date: 10/13/2017 Age: 62y Height: 170.18 cm / 67.0 in Weight: 98.88 kg / 217.9 lbs Sex: M BSA: 2.1 Room#: 444 Admit Date#: 10/10/2017 Type: Inpatient Referring: Cy Mcdowell MD Reading: Juanita Lawrence MD Pharmacy Consultant: Kaylah Richardson [facility] Transthoracic Echocardiogram Indication: CP BP: 114/29 HR: 60 Rhythm: NSR Findings History: Resident of [address] [place] [address],COPD,CKD stage IV,CABG,CHF,DM,PVD,smoker,treated TB. Technical Comments: The study is technically limited due to patient body habitus. Completed at 0937. 4.5ml Definity used to enhance images. The study is technically limited due to the patient's history of COPD. The study is technically limited due to the patient's smoking history. Left Ventricle: The left ventricular chamber size is normal. Mild concentric left ventricular hypertrophy is observed. Global left ventricular wall motion and contractility are within normal limits. There is normal left ventricular systolic function. The estimated ejection fraction is 60-65%. Abnormal left ventricular diastolic function is observed.Probable pseudonormal. The left ventricular diastolic filling pattern is consistent with elevated left ventricular end-diastolic pressure. Left Atrium: The left atrial chamber size is normal.Upper limits of normal by volume index. Right Ventricle: The right ventricle is not well visualized. Right Atrium: The right atrium is not well visualized. Aortic Valve: The aortic valve is trileaflet. There is no evidence of aortic regurgitation. There is no evidence of aortic stenosis. Mitral Valve: The mitral valve leaflets are mildly thickened. There is mild mitral regurgitation. There is no evidence of mitral stenosis. Tricuspid Valve: The tricuspid valve leaflets are normal. There is trace to mild tricuspid regurgitation.seen on subcostal view only. Unable to estimate the right ventricular systolic pressure. There is no tricuspid stenosis. Pulmonic Valve: The pulmonic valve appears normal. There is no evidence of pulmonic regurgitation. There is no pulmonic stenosis. Pericardium: A pericardial fat pad is visualized. Aorta: There is no dilatation of the ascending aorta. There is no dilatation of the aortic arch. There is no dilation of the aortic root. Pulmonary Artery: The main pulmonary artery appears normal. Venous: The inferior vena cava appears normal in size. There is a greater than 50% respiratory change in the inferior vena cava dimension. Contrast: Definity was used to optimize study. 4.5 ml used. Intravenous contrast was used to enhance endocardial border definition. Conclusions Mild concentric left ventricular hypertrophy is observed. Global left ventricular wall motion and contractility are within normal limits, normal to hyperdynamic systolic function. The estimated ejection fraction is 60-65%. Abnormal left ventricular diastolic function is observed, probable pseudonormal pattern. The left ventricular diastolic filling pattern is consistent with elevated left ventricular end-diastolic pressure. There is mild mitral regurgitation. There is trace to mild tricuspid regurgitation seen on subcostal view only. Unable to estimate the right ventricular systolic pressure. No prior echo to compare. Measurements Name Value Normal Range RVIDd (AP) 2D 1.9 cm (0.9 - 2.6) IVSd (2D) 1.1 cm (0.6 - 1) LVPWd (2D) 1.1 cm (0.6 - 1) LVIDd (2D) 3.7 cm (3.6 - 5.4) LVIDs (2D) 2.6 cm - LV FS (2D) 29 % (25 - 45) Aortic Annulus 1.9 cm (1.4 - 2.6) Ao root diameter (2D) 3 cm (2.1 - 3.5) Ascending Ao 3.2 cm (2.1 - 3.4) Aortic arch 2.4 cm (1.8 - 3.4) Descending Ao 0.4 cm - LA dimension (AP) 2D 2.4 cm (2.3 - 3.8) LAd ISD 4CH 6 cm (2.9 - 5.3) LA ISD 4CH W 4.3 cm (2.5 - 4.5) Name Value Normal Range LA ESV SP 4CH (A/L) 79 ml - LA ESV SP 2CH (A/L) 61 ml - LA ESV BP (A/L) 70 ml - LA ESV BP (A/L) index 33.19 ml/m2 - LA ESV SP 4CH (MOD) 71 ml - LA ESV SP 2CH (MOD) 58 ml - Name Value Normal Range MV E-wave Vmax 1.4 m/sec - MV deceleration time 210 msec - MV A-wave Vmax 0.7 m/sec - MV E:A ratio 1.94 ratio - LV septal e' Vmax 0.06 m/sec - LV lateral e' Vmax 0.04 m/sec - LV E:e' septal ratio 23.33 ratio - LV E:e' lateral ratio 35 ratio - Name Value Normal Range AV Vmax 1.4 m/sec - AV VTI 31 cm - AV peak gradient 7.38 mmHg - AV mean gradient 4.27 mmHg - LVOT Vmax 1.1 m/sec - LVOT VTI 26.3 cm - LVOT peak gradient 5.14 mmHg - LVOT mean gradient 2.39 mmHg - Name Value Normal Range IVC diameter 1.6 cm - Name Value Normal Range PV Vmax 1.1 m/sec - PV peak gradient 4.98 mmHg -
[2017-10-13] MEDS: Bumetanide TAB* 2 MG PO SCH (11:34)
[2017-10-13 12:52] LABS: EGFR Non-African American 14.6 (>60)
[2017-10-13] MEDS: Warfarin TAB(*) 6 MG PO SCH (17:48)
[2017-10-14] MEDS: Insulin LISPRO* 1 UNITS UNIT SUBCUT SCH ×4 (07:56→21:01)
[2017-10-14] MEDS: Mometasone/Formoter 100/5 MDI INH SCH ×2 (09:13→21:00)
[2017-10-14] MEDS: Isosorbide Mononitrate ER TAB* 30 MG PO SCH (09:20)
[2017-10-14] MEDS: Bumetanide TAB* 2 MG PO SCH (09:20)
[2017-10-14] MEDS: Atorvastatin* 20 MG TAB PO SCH (09:20)
[2017-10-14] MEDS: Calcium/Vitamin D TAB 250/125* TAB PO SCH ×2 (09:20→21:01)
[2017-10-14] MEDS: amLODIPine TAB* 5 MG PO SCH (09:20)
[2017-10-14] MEDS: Carvedilol TAB* 25 MG PO SCH ×2 (09:21→21:01)
[2017-10-14] MEDS: Insulin GLARGINE(*) 1 UNITS UNIT SUBCUT SCH ×2 (09:21→17:58)
[2017-10-14] MEDS: Aspirin EC Low Dose* 81 MG TAB.EC PO SCH (09:21)
[2017-10-14] MEDS: Ferrous Sulfate TAB* 325 MG PO SCH ×2 (09:21→21:01)
[2017-10-14] MEDS ORDERED: Regadenoson* 0.4 MG/5 ML SYRINGE ONE (10:29)
[2017-10-14] MEDS ORDERED: Aminophylline IV* 25 MG/ML 10 ML VIAL ONE (10:50)
--- NOTE | 2017-10-14 12:10 | RAD ---
Edited for charges. Indication: Chest pain. Myocardial perfusion was performed utilizing 1 day protocol. Rest myocardial perfusion was performed after intravenous injection of 10.3 mCi of technetium 99m tetrofosmin. Pharmacological stress was applied and 25.2 mCi of technetium 99 and tetrofosmin was injected for the stress portion of the study. CT could not be performed for attenuation correction. The patient's arm could also not be raised above the head. There is photopenia in the inferior wall which appears worse at rest than at stress. This is likely due to attenuation from the patient's arms. The left ventricle is otherwise mildly enlarged. No evidence of reversible change is noted. The ejection fraction at stress is 45%. Evaluation of wall motion demonstrates no focal wall motion abnormality. IMPRESSION: Mildly enlarged left ventricle. Inferior wall photopenia worse at rest than at stress and likely represents artifact. No definite reversible change is noted. Ejection fraction of 45%. ASSESSMENT: Intermediate risk Based on imaging criteria from ACC/AHA 2002 Guideline Update for the Management of Patients With Chronic Stable Angina Table 23. Noninvasive Risk Stratification. MTDD
[2017-10-14] MEDS: Moisturizing CREAM* 120 GM JAR TOPICAL SCH ×2 (12:21→21:02)
--- NOTE | 2017-10-14 13:21 | PN ---
Subjective Date of Service: 10/14/17 Interval History: Patient seen and examined at bedside. He is not utilizing O2; states his breathing feels the best it has since being here. Still endorses left sided chest discomfort that is persistent. Denies difficulty breathing, n/v. Denies dysuria. No other acute concerns currently. Family History: Unchanged from Admission Social History: Unchanged from Admission Past Medical History: Unchanged from Admission Objective Active Medications: Acetaminophen (Tylenol Tab*) 650 mg PO Q4H PRN PRN Reason: FEVER/PAIN Last Admin: 10/11/17 01:57 Dose: 650 mg Albuterol (Ventolin Hfa Inhaler*) 1 puff INH Q4H PRN PRN Reason: SHORTNESS OF BREATH Amlodipine Besylate (Norvasc Tab*) 10 mg PO DAILY [facility] Last Admin: 10/14/17 09:20 Dose: 10 mg Aspirin (Aspirin Ec Low Dose*) 81 mg PO DAILY [facility] Last Admin: 10/14/17 09:21 Dose: 81 mg Atorvastatin Calcium (Lipitor*) 20 mg PO DAILY [facility] Last Admin: 10/14/17 09:20 Dose: 20 mg Bumetanide (Bumex Tab*) 2 mg PO DAILY [facility] Last Admin: 10/14/17 09:20 Dose: 2 mg Calcium/Vitamin D (Oscal D Tab 250/125*) 2 tab PO BID [facility] Last Admin: 10/14/17 09:20 Dose: 2 tab Carvedilol (Coreg Tab*) 25 mg PO BID [facility] Last Admin: 10/14/17 09:21 Dose: 25 mg Dextrose (D50w Syringe 50 Ml*) 12.5 gm IV PUSH .FOR FS < 60 - SS PRN PRN Reason: FS < 60 Ferrous Sulfate (Ferrous Sulfate Tab*) 325 mg PO BID [facility] Last Admin: 10/14/17 09:21 Dose: 325 mg Insulin Glargine (Lantus(*)) 25 units SUBCUT QAM [facility] Last Admin: 10/14/17 09:21 Dose: 25 units Insulin Glargine (Lantus(*)) 25 units SUBCUT QPM [facility] Last Admin: 10/13/17 18:41 Dose: 25 units Insulin Human Lispro (Humalog*) 0 units SUBCUT ACHS [facility] PRN Reason: Protocol Last Admin: 10/14/17 12:21 Dose: Not Given Isosorbide Mononitrate (Imdur Er Tab*) 30 mg PO DAILY [facility] Last Admin: 10/14/17 09:20 Dose: 30 mg Mometasone Furoate/Formoterol Fumar (Dulera 100/5 Mdi*) 2 puff INH BID [facility] PRN Reason: Protocol Last Admin: 10/14/17 09:13 Dose: 2 puff Morphine Sulfate (Morphine Inj (Syringe)*) 2 mg IV Q4H PRN PRN Reason: PAIN Last Admin: 10/12/17 23:47 Dose: 2 mg Multi-Ingredient Ointment (Hydrocerin*) 1 applic TOPICAL BID [facility] Last Admin: 10/14/17 12:21 Dose: Not Given Nitroglycerin (Nitroglycerin Tab 0.4 Mg*) 0.4 mg SL Q5M PRN PRN Reason: ANGINA Last Admin: 10/12/17 23:31 Dose: 0.4 mg Warfarin Sodium (Coumadin Tab(*)) 6 mg PO DAILY@1700 [facility] PRN Reason: Protocol Last Admin: 10/13/17 17:48 Dose: 6 mg Vital Signs - 8 hr 10/14/17 10/14/17 10/14/17 07:40 09:14 09:15 Temperature 98.5 F Pulse Rate 62 62 Respiratory 20 20 Rate Blood Pressure 131/58 (mmHg) O2 Sat by Pulse 95 95 95 Oximetry Oxygen Devices in Use Now: None Appearance: Male patient, lying in bed, NAD Eyes: No Scleral Icterus Ears/Nose/Mouth/Throat: Clear Oropharnyx, Mucous Membranes Moist Neck: NL Appearance and Movements; NL JVP Respiratory: Symmetrical Chest Expansion and Respiratory Effort, - - diminished Cardiovascular: NL Sounds; No Murmurs; No JVD, RRR Abdominal: NL Sounds; No Tenderness; No Distention Extremities: No Edema Neurological: Alert and Oriented x 3, NL Muscle Strength and Tone Lines/Tubes/Other Access: Clean, Dry and Intact Peripheral IV Nutrition: Taking PO's Result Diagrams: 10/12/17 05:13 10/14/17 12:16 Microbiology and Other Data: Microbiology 10/11/17 01:26 Nasal Screen MRSA (PCR)(OLESYA) - Final Nasal Mrsa Negative EKG Data: EKG INTERPRETATION ECG Report Patient Name JAZMYN THOMAS [id number] Birthdate 1955 Sex M Order Number [id number] Date of ECG 10/11/2017 15:09:33 Interpretation Sinus rhythm.normal P axis, V-rate 60- 99 Borderline prolonged MS interval.MS >202, V-rate 50- 90 Probable left atrial enlargement.P >50mS, <-0.10mV V1 Abnrm T, consider ischemia, anterolateral lds.T <-0.20mV, I aVL V2-V6 Baseline wander in lead(s) V2 - ABNORMAL ECG - ECG NEEDS E-SIGNING Please go to [facility] [place] website to view the EKG image Assess/Plan/Problems-Billing Assessment: This is a 62 year old AA male patient, currently incarcerated, with hx sig for CAD/CABG, HF, CKD, DM, that experienced ongoing SOB with significant acute weight gain that has been admitted for acute (on chronic??) CHF and left sided chest pain. - Patient Problems (1) CHF (congestive heart failure) Code(s): I50.9 - HEART FAILURE, UNSPECIFIED Comment: - s/p lasix IV 80/60/20 IVP and metolazone 5mg with clinical improvement - 10lb weight loss since admission - continue bumex today (has been on high dose lasix for 2 years) and may continue metolazone for thiazide action, renal impairment may be cause of diurectic resistence - Off O2, sats improved, WOB improved - Echo shows preserved systolic function, EF 60-65% - Low Na diet, nutrition consult - Stress test results pending (2) CKD (chronic kidney disease) stage 4, GFR 15-29 ml/min Current Visit: Yes Status: Acute Code(s): N18.4 - CHRONIC KIDNEY DISEASE, STAGE 4 (SEVERE) SNOMED Code(s): 535103730 Comment: - check UA, renal US - Initial bump up in creat from 4-5 from agressive diuresis (4 is baseline), back to 4.25 /, recheck today - Continue to monitor (3) IDDM (insulin dependent diabetes mellitus) Current Visit: No Status: Acute Code(s): E11.9 - TYPE 2 DIABETES MELLITUS WITHOUT COMPLICATIONS; 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
[2017-10-14 13:35] LABS: EGFR Non-African American 13.6 (>60)
[2017-10-14] MEDS: Warfarin TAB(*) 6 MG PO SCH (17:55)
--- NOTE | 2017-10-14 19:51 | RAD ---
Indication: Acute on chronic renal failure. Comparison: No relevant prior exams available on the [facility] for comparison. Technique: Renal ultrasound. Report: 9.3 x 4.8 x 4.6 cm RIGHT kidney demonstrates mildly increased cortical echogenicity. 1.1 cm cyst at the midpole cortex. No suspicious focal RIGHT renal lesions, stones, or hydronephrosis. 9.9 x 5.9 x 4.3 cm LEFT kidney demonstrates mildly increased cortical echogenicity. No focal lesions, conspicuous stones, or hydronephrosis. IMPRESSION: Mildly increased renal cortical echogenicity consistent with presence of medical renal disease. No visualized suspicious focal renal lesions or obstructive uropathy.
[2017-10-14 21:59] LABS: Urine Appearance Clear; Urine Blood 2+ (Negative); Urine Color Straw; Urine Ketones Negative (Negative); Urine Protein 1+(30 mg/dL) (Negative); Urine Specific Gravity 1.009 (1.010-1.030); Urine Urobilinogen Negative (Negative)
[2017-10-15] MEDS: Mometasone/Formoter 100/5 MDI INH SCH (08:25)
[2017-10-15] MEDS: Ferrous Sulfate TAB* 325 MG PO SCH (08:27)
[2017-10-15] MEDS: Aspirin EC Low Dose* 81 MG TAB.EC PO SCH (08:27)
[2017-10-15] MEDS: Atorvastatin* 20 MG TAB PO SCH (08:27)
[2017-10-15] MEDS: Bumetanide TAB* 2 MG PO SCH (08:27)
[2017-10-15] MEDS: Insulin GLARGINE(*) 1 UNITS UNIT SUBCUT SCH ×2 (08:27→17:58)
[2017-10-15] MEDS: Carvedilol TAB* 25 MG PO SCH (08:27)
[2017-10-15] MEDS: Calcium/Vitamin D TAB 250/125* TAB PO SCH (08:28)
[2017-10-15] MEDS: amLODIPine TAB* 5 MG PO SCH (08:28)
[2017-10-15] MEDS: Isosorbide Mononitrate ER TAB* 30 MG PO SCH (08:28)
[2017-10-15] MEDS: Insulin LISPRO* 1 UNITS UNIT SUBCUT SCH ×3 (09:46→17:58)
[2017-10-15] MEDS: Moisturizing CREAM* 120 GM JAR TOPICAL SCH (10:31)
[2017-10-15] MEDS ORDERED: Insulin LISPRO* 1 UNITS UNIT SUBCUT ONE (12:33)
[2017-10-15 12:42] LABS: EGFR Non-African American 14.9 (>60)
[2017-10-15 14:20] VITALS: BP 125/53
[2017-10-15] MEDS: Warfarin TAB(*) 6 MG PO SCH (17:58)
--- NOTE | 2017-10-16 03:11 | DS ---
CC: [facility] * MEDICINE DISCHARGE SUMMARY: DATE OF ADMISSION: 10/10/17 DATE OF DISCHARGE: 10/15/17 ATTENDING PHYSICIAN: Elisha Cheng MD * (dictated by Chyna Ross NP). PRIMARY CARE PROVIDER: [facility]. PRIMARY DISCHARGE DIAGNOSES: 1. Congestive heart failure exacerbation. 2. Acute on chronic kidney disease. SECONDARY DISCHARGE DIAGNOSES: 1. Chronic obstructive pulmonary disease. 2. Chronic kidney disease stage 4. 3. History of triple bypass and coronary artery disease. 4. Insulin-dependent type 2 diabetes. 5. Recent pneumonia. 6. Gait disorder, use of wheelchair for long distances. 7. History of necrotic syndrome, likely secondary to diabetes. 8. Peripheral vascular disease. 9. Tobacco abuse. 10. History of tuberculosis, received treatment. MEDICATIONS AT DISCHARGE: 1. Amlodipine 10 mg daily. 2. Warfarin 6 mg daily. 3. Imdur ER 30 mg daily. 4. Ferrous sulfate 325 mg b.i.d. 5. Carvedilol 25 mg b.i.d. 6. Atorvastatin 20 mg daily. 7. Aspirin 81 mg daily. 8. Albuterol inhaler 1 puff inhaled q.4 hours p.r.n. 9. Lantus 25 units q.a.m. and 15 units q.p.m. 10. Calcium 500 plus vitamin D 200, one tab b.i.d. 11. Eucerin cream one application topical b.i.d. 12. Advair 115/21 one puff inhaled daily. 13. Bumex 2 mg daily. This is a change from the previously prescribed furosemide. DIAGNOSTIC TESTING DURING THIS ADMISSION: Venous Doppler study of the right lower extremity shows no evidence of deep vein thrombosis. Transthoracic echocardiogram, conclusion: Mild concentric left ventricular hypertrophy is observed. Global left ventricular wall motion and contractility are within normal limits, and normal to hyperdynamic systolic function. The estimated ejection fraction is 60% to 65%. Abnormal left ventricular diastolic function is observed, probable pseudonormal pattern. The left ventricular diastolic filling pattern is consistent with elevated left ventricular end- diastolic pressure. There is mild mitral regurgitation. There is trace to mild tricuspid regurgitation seen on the subcostal view only. Unable to estimate right ventricular systolic pressure. No prior echo to compare. Nuclear medicine scan: Ejection fraction 45%. Evaluation of wall motion demonstrates no focal wall motion abnormality. Impression: Mildly enlarged left ventricle. Inferior wall photopenia worse at rest than at stress and likely represents artifact. No definite reversible changes noted. Ejection fraction is 45%. Assessment: Intermediate risk. This stress test was reviewed by the wreath inspector along with the Lexiscan and exercise portion. New signs of acute ischemia was seen. Renal ultrasound: Mildly increased renal cortical echogenicities consistent with presence of medical renal disease. No visualized suspicious focal renal lesions or obstructive uropathy. HOSPITAL COURSE OF STAY: For full details, please refer to the H and P provided by Dr. Mcdowell on 10/10/17. In summary, this is a 62-year-old gentleman who comes to the hospital on the with concern for shortness of breath and weight gain. He had notably gained 8 pounds between 09/19/17 and and had been on oral Lasix. He was started on IV diuretics here and an echocardiogram was done. The patient is requiring oxygen and felt short of breath even at rest. He had inspiratory chest pain. He was receiving IV Lasix with minimal relief. However, with diuresis, the patient's symptom has been improved. He was switched from IV Lasix to bumetanide. The patient also received a few doses of Zaroxolyn with good effect. The patient's weight on admission was 225 pounds and he is now 213 pounds. Again, we did pursue a stress test which did not show any acute signs of ischemia. I could have the wreath inspector review this given the intermediate risk assessment. The patient's chest pain did resolve once he was able to get off oxygen. He has had significant diuresis and has an approximate 12-pound weight loss by our scale. In regards to his renal disease, there is concern as the patient does appear to have significant kidney disease. On admission, he was 3.9 and went as high as 4.4 during his diuresis. At discharge, his most recent creatinine is 4.12. It is at baseline from previous labs from the facility that he was typically around 4 for his creatinine. We did discuss the likelihood that he may need dialysis in the future and that he should follow up with dealer accounts investigator. I did run the case by our hospital dealer accounts investigator who recommended that he follow up with a closer dealer accounts investigator as [place] does not usually utilize our dialysis facility. He did have a UA which was negative for any acute infection and his renal ultrasound shows medical renal disease, but no obstructive pathologies that could be contributing to the patient's renal function. PHYSICAL EXAMINATION: Vital Signs: Temperature 98.3, heart rate 71, respiratory rate 20, blood pressure 125/53, and O2 saturation is 96% on room air. HEENT: Head is atraumatic, normocephalic. Face is symmetrical. Pupils are equal, round and reactive to light. Oral mucosa is moist. Neck is supple. No JVD noted. No lymphadenopathy appreciated. Cardiac: S1, S2 heart sounds. Regular rate and rhythm. The patient has non-pitting trace edema to the lower extremities. Distal pulses are intact. Lungs are diminished but clear to auscultation. Abdomen is soft, nontender, nondistended. Bowel sounds are normoactive. Extremities: Show no clubbing or cyanosis. Neuro: He is alert and oriented x3. No focal deficits noted. Psych: Affect is appropriate. OUTPATIENT FOLLOWUP NEEDS: Again, Mr. Wright will require outpatient nephrology referral for close evaluation and evaluation of dialysis needs in the future. He is to have a repeat BMP next week as well as recheck with INR this week as he is on warfarin. His INR was therapeutic here in the hospital. He should be maintained on daily weights at least Friday, Friday and Friday to monitor for weight gain and it was recommended to elevate his extremities. DIET: Should be low sodium, consistent carbohydrate diet. ACTIVITY: As tolerated. CONDITION: Improved, stable. DISPOSITION: [facility]. TIME SPENT: Time spent on this discharge is approximately 55 minutes. Again, this is only a brief summary of the patient's hospital course of stay. For full details, please refer to the full medical record. If you have any further questions or need further assistance, please feel free to contact me at . CHYNA ROSS NP [id number]/CPS #: [id number] ISHAAN
== END 2017-10-15 16:10 | DRG 194 ==
LOC: EDBD → ED 21:33 → MEDTELE 23:09 → EEVIPCON 23:09 → OBSVTOIN 10-13 10:00
PROVIDERS: ADMIT Internal Medicine; ATTEND Internal Medicine
DX: I13.0 Hypertensive heart and chronic kidney disease with heart failure and stage 1 through stage 4 chronic kidney disease, or unspecified chronic kidney disease (principal); I50.31 Acute diastolic (congestive) heart failure; E11.51 Type 2 diabetes mellitus with diabetic peripheral angiopathy without gangrene; E11.21 Type 2 diabetes mellitus with diabetic nephropathy; N17.9 Acute kidney failure, unspecified; N18.4 Chronic kidney disease, stage 4 (severe); J44.9 Chronic obstructive pulmonary disease, unspecified; I25.10 Atherosclerotic heart disease of native coronary artery without angina pectoris; F17.210 Nicotine dependence, cigarettes, uncomplicated; D50.9 Iron deficiency anemia, unspecified; E11.22 Type 2 diabetes mellitus with diabetic chronic kidney disease; Z79.4 Long term (current) use of insulin; Z95.1 Presence of aortocoronary bypass graft; R26.9 Unspecified abnormalities of gait and mobility; Z79.01 Long term (current) use of anticoagulants; Z79.82 Long term (current) use of aspirin; Z79.899 Other long term (current) drug therapy; Z88.8 Allergy status to other drugs, medicaments and biological substances
CPT/HCPCS: 36415; 71010; 76775; 78452; 80048; 80053; 80320; 81003; 81015; 83605; 83735; 83880; 84484; 85025; 85610; 85730; 87086; 87641; 93005; 93017; 93306; 94640; 94760; 99406; A9270-GY; A9502; C8929; G0378; G0480; J0280; J1940; J2270; J2785; J3490

== ENCOUNTER 2017-10-29 14:50 | Inpatient (IN) | payer OTHER ==
--- NOTE | 2017-10-29 15:47 | RAD ---
Indication: LEFT side chest pain and shortness of breath. COPD. Comparison: October 10, 2017 Technique: Upright AP 1535 hours Report: Bilateral alveolar infiltrates. Grossly clear pleural spaces. Negative for pneumothorax. Median sternotomy wires. Mild cardiomegaly. Unremarkable central pulmonary vasculature and mediastinal contours. IMPRESSION: The constellation of findings is most consistent with bronchopneumonia.
[2017-10-29 16:24] LABS: ABS Basophils 0 10^3/ul (0-0.2); ABS Eosinophils 0.3 10^3/ul (0-0.6); ABS Lymphocytes 1.6 10^3/ul (1.0-4.8); ABS Neutrophils 7.3 10^3/ul (1.5-7.7); ABS Nucleated RBC 0 10^3/ul; Eosinophil % 3.2 % (0-6); Hematocrit 22 % (42-52); Hemoglobin 7.1 g/dl (14.0-18.0); Lymphocyte % 15.3 % (25-47); Mean Corpuscular HGB Conc 33 g/dl (31-36); Mean Corpuscular Hemoglobin 30 pg (27-31); Mean Corpuscular Volume 92 fL (80-94); Mean Platelet Volume 7 um3 (7.4-10.4); Nucleated Red Blood Cells % 0.2; Platelet Count 289 10^3/ul (150-450); Red Blood Count 2.36 10^6/ul (4.0-5.4); Red Cell Distribution Width 17 % (10.5-15); White Blood Count 10.2 10^3/ul (3.5-10.8)
[2017-10-29 16:42] LABS: EGFR Non-African American 13.3 (>60)
[2017-10-29 16:44] LABS: INR 1.93 (0.77-1.02)
[2017-10-29] MEDS ORDERED: Dextrose 50% Syringe 50 ML* 25 GM/50 ML SYRINGE IV PUSH PRN (18:33)
[2017-10-29] MEDS ORDERED: Morphine INJ* 2 MG/ML 1 ML CARPUJECT IV ONE (18:33)
[2017-10-29] MEDS ORDERED: Ondansetron INJ* 2 MG/ML VIAL IV PRN (18:33)
[2017-10-29] MEDS ORDERED: Albuterol HFA INHALER* 8 gm MDI INH PRN (18:39)
[2017-10-29] MEDS ORDERED: Morphine INJ* 2 MG/ML 1 ML SYRINGE (TWO MG - NEW SYRINGE VERSION) ONE (19:02)
[2017-10-29 19:07] LABS: Hematocrit 23 % (42-52); Hemoglobin 7.5 g/dl (14.0-18.0)
[2017-10-29 19:11] LABS: Hematocrit for Retic CNT 23 % (42-52); RBC Retic Count 2.53 10^6/ul (4.6-6.2)
[2017-10-29 19:13] LABS: Corrected Retic Count 2.4 % (0.5-1.5); Immature Retic Fraction 0.57
[2017-10-29] MEDS: Mometasone/Formoter 200/5 MDI INH SCH (20:24)
[2017-10-29] MEDS: cefTRIAXone(*) 1 GM in NS 0.9% 50 ML* 50 ML IVPB SCH (21:00)
--- NOTE | 2017-10-29 21:02 | HP ---
CC: [facility] * HISTORY AND PHYSICAL: DATE OF ADMISSION: 10/29/17 PRIMARY CARE PROVIDER: [facility]. ATTENDING PHYSICIAN WHILE IN THE HOSPITAL: Mahesh Walton MD * (report dictated by Nimesh Pearson NP). CHIEF COMPLAINT: 1. Shortness of breath. 2. Tightness in the chest. 3. Not feeling well. HISTORY OF PRESENT ILLNESS: Mr. Wright is a 62-year-old male patient who comes into the ED today with complaints of shortness of breath, tightness in his chest worsening when he leans forward, and dyspnea on exertion, and having some chills off and on. He noted today he went to the [facility] to have his oxygen levels checked and blood pressure checked and it was noted that his O2 saturations were 90%. The patient went back to his bunk, he got up again as he was called in to be reevaluated because of the chest tightness he was complaining that he was having, he was feeling sweaty, he was not feeling well, he was feeling weak, tired, feeling malaise. He had told this to the [facility] nursing staff, they were concerned and sent him to the hospital. He denies any known fevers, but he states he has been having chills, he coughed this morning and had a speck of blood in it. He denied having any abdominal pain or any nausea, vomiting, no tarry stools. He says that his stools are black all the time, he is on iron pills, but they have not changed. He states that he has increase in weight, up to 226 pounds. He denies having any abdominal discomfort. He states that the chest tightness in his chest is mostly on the left side. It gets worse when he leans forward. He states he has been unable to sleep at night because he has been having pain in his right hip that has been shooting down his leg and he has been having that for several months now. He denies any back discomfort. It is mostly in the hip and down the leg. He was concerned because he just was not getting any better. He came in, was evaluated, it was noted that his hemoglobin had dropped down to 7.1. His troponin was mildly elevated at 0.04. His creatinine had bumped up to 0.53. He normally, according to the old records, does run around 4 for his creatinine. There was concern because of these findings and we were asked to evaluate for admission. PAST MEDICAL HISTORY: Significant for: 1. COPD. 2. CKD stage 4. 3. History of CHF, last EF when he was here was 60% to 65%. 4. Has a history of CAD. 5. History of pneumonia. 6. Has a history of gait disorder. 7. Has nephrotic syndrome. 8. History of TB. 9. He does admit to a history of atrial fibrillation. 10. History of peripheral vascular disease. 11. Anxiety. 12. Type 2 diabetes. 13. Tobacco abuse. PAST SURGICAL HISTORY: He has had: 1. CABG. 2. Carotid endarterectomy. HOME MEDICATIONS: His home meds according to his list provided: 1. Amlodipine 10 mg daily. 2. Ventolin 1 puff inhale every 4 hours as needed. 3. Eucerin cream 1 g topically daily. 4. Advair 2 puffs inhale b.i.d. 5. Bumex 2 mg p.o. daily. 6. Lantus 25 units in the morning subcu and 15 units at bedtime. 7. He takes warfarin 6 mg daily. 8. Aspirin 81 mg daily. 9. Imdur 30 mg daily. 10. Carvedilol 25 mg p.o. b.i.d. 11. Ranitidine 150 mg p.o. b.i.d. 12. Calcium carbonate 1 tablet p.o. b.i.d. 13. Ferrous sulfate 325 mg p.o. b.i.d. 14. Lipitor 20 mg daily. ALLERGIES TO MEDICATIONS: Include VALERIE INHIBITORS. FAMILY HISTORY: His mother had a history of [place] and diabetes. Father, he thinks of a drug overdose. SOCIAL HISTORY: He is a smoker. He smokes, he thinks about 10 cigarettes a day. Does not drink alcohol. He resides at [place]. REVIEW OF SYSTEMS: There is no documented fever. He does admit to having chills. He does admit to having a weight change. He said he was 218 when he left here, now he is 226. Denies having any abdominal discomfort. There was no nausea, no vomiting. Does admit to having significant chest discomfort. There is no orthopnea, no nocturnal dyspnea. There is dyspnea on exertion. There was no lightheadedness. No dysuria, no frequency. There was no loss of consciousness. No pruritus and no skin ulcerations. Review of 14 systems completed, all others negative. PHYSICAL EXAMINATION GENERAL: At this time, Mr. Wright is a 62-year-old male patient. He is chronically ill appearing. He is sitting in the ED stretcher. He does not appear to be in any acute distress. VITAL SIGNS: Blood pressure 114/70, pulse 76, respirations 25, O2 sat 95%, temperature of 98.3. HEENT: Head: Atraumatic. Eyes: Sclerae anicteric, not pale. Throat: Oral mucosa appears to be dry. No oropharyngeal erythema. NECK: Supple. LUNGS: Diminished in the bases. He had no wheezes or rales. HEART: Sounds S1 and S2. Regular rate and rhythm. No murmurs, rubs, or gallops. ABDOMEN: Soft, flat, nontender. Bowel sounds present. EXTREMITIES: Pulses were 2+ throughout. He is moving all extremities with 5/5 strength. NEUROLOGIC: He is awake, he is alert, he is oriented x3. No gross focal deficits. SKIN: Intact. DIAGNOSTIC STUDIES/LAB DATA: WBC 10.2; RBC at 2.36; hemoglobin 7.1, last hemoglobin when he was here was 9.5 and 8.9 and 10.1; his hematocrit was 22; platelet count was 289,000. INR 1.93, D-dimer 205. Sodium 139, potassium 4.5, chloride 108, bicarb 26. BUN 71; creatinine 4.53, he has wandered around 4.3. His glucose was 128, lactate 1, calcium 8.7. Total bili 0.6, AST 12, ALT 11, alk phos 75. LDH pending. Troponin 0.04, it is near his baseline. CRP 32. BNP 916. Albumin is 3.1. He did have a chest x-ray obtained today, impression: Constellation of findings most consistent with bronchial pneumonia. He did have an EKG obtained today as well, showing a normal sinus rhythm, rate of 74. He did have inversions in leads 1, 2, and aVL along with V4, V5, V6, and V3. In reviewing his previous EKG, he has had these inversions before. He had a stress test, previously had shown no evidence of stress-induced ischemia and last EF of 60% to 65%. Old medical records were reviewed. ASSESSMENT AND PLAN: Mr. Wright is a 62-year-old male patient with a complex medical history, coming into the ED today with complaints of fatigue, not feeling well and having increasing shortness of breath and chest discomfort. He will be admitted under inpatient status for: 1. Anemia. Again at this point, the etiology is unclear. His Hemoccult was negative here in the ED. Certainly, this could be related to his kidney disease. It could be bone marrow suppression in the setting of an acute illness. It is unclear. Plan at this point is to give him a unit of blood as he is clearly symptomatic. Get LDH, reticulocyte count, iron studies, B12 studies, and check an erythropoietin study as well and we will continue to follow him. We will check serial H and Hs and monitor closely. 2. Question of pneumonia. Again, an x-ray did show pneumonia. He has been feeling fatigued, has been feeling weak, has been short of breath and having chest pain. I think we need to check the flu, get blood cultures, and put him on Rocephin and azithromycin. I will also check his urine antigen as well for Legionella and strep pneumo antigen. We will try to get sputum cultures if possible. We did get blood cultures on him, I am going to go ahead and put him on antibiotics. 3. History of coronary artery disease. We will continue his meds as prescribed. I am going to hold his aspirin and warfarin in the setting of his possible bleeding. We will need to restart the aspirin as soon as we determine that it is safe. We will continue to hold warfarin for now. 4. Chronic obstructive pulmonary disease. At this point, we will continue p.r.n. albuterol and his Advair. 5. History of chronic kidney disease, stage 4. His creatinine is a little worse today. It could be just related to the low H and H. Again, we will give him blood and we will repeat this in the morning, we will follow. I will check a urine on him as well. 6. History of coronary artery disease. We will continue his Imdur, beta renetta, and amlodipine. 7. History of diabetes. He will be on lispro sliding scale. 8. Peripheral vascular disease. We are going to hold the aspirin for the time being, but he is on statin. We will continue. 9. Anxiety. Continue supportive care. 10. History of atrial fibrillation. Holding the warfarin at this point, in the setting of possible bleeding. 11. DVT prophylaxis. He will be on SCDs only. 12. Code status. He is full code. 13. Fluids, electrolytes, and nutrition. He can have a heart-healthy diet. TIME SPENT: Time spent on admission 60 minutes, greater than half the time was spent [id number] with the patient obtaining my history of physical; the other half time was spent going over the plan of care with the patient and implementing plan of care. I did discuss the plan of care with my attending, Dr. Walton; he is in agreement. NIMESH PEARSON, [place] [id number]/CPS #: [id number] [email or web address]
[2017-10-29] MEDS: Ferrous Sulfate TAB* 325 MG PO SCH (22:51)
[2017-10-29] MEDS: Carvedilol TAB* 25 MG PO SCH (22:51)
[2017-10-29] MEDS: Famotidine TAB* 20 MG PO SCH (22:51)
[2017-10-29] MEDS: Lidocaine PATCH 5%* 1 PATCH TRANSDERM SCH (22:53)
[2017-10-29] MEDS: Azithromycin IV(*) 500 MG in NS 0.9% 250 ML* 250 ML IVPB SCH (22:56)
[2017-10-30 00:09] LABS: Hematocrit 22 % (42-52)
[2017-10-30 06:19] LABS: ABS Basophils 0.1 10^3/ul (0-0.2); ABS Eosinophils 0.3 10^3/ul (0-0.6); ABS Lymphocytes 1.8 10^3/ul (1.0-4.8); ABS Neutrophils 7.7 10^3/ul (1.5-7.7); ABS Nucleated RBC 0 10^3/ul; Eosinophil % 3.1 % (0-6); Hematocrit 24 % (42-52); Hemoglobin 7.8 g/dl (14.0-18.0); Lymphocyte % 16.6 % (25-47); Mean Corpuscular HGB Conc 33 g/dl (31-36); Mean Corpuscular Hemoglobin 30 pg (27-31); Mean Corpuscular Volume 92 fL (80-94); Mean Platelet Volume 7 um3 (7.4-10.4); Nucleated Red Blood Cells % 0.1; Platelet Count 263 10^3/ul (150-450); Red Blood Count 2.57 10^6/ul (4.0-5.4); Red Cell Distribution Width 17 % (10.5-15)
[2017-10-30 06:35] LABS: INR 1.92 (0.77-1.02)
[2017-10-30 06:36] LABS: EGFR Non-African American 13.1 (>60)
[2017-10-30] MEDS: Atorvastatin* 20 MG TAB PO SCH (08:20)
[2017-10-30] MEDS: Famotidine TAB* 20 MG PO SCH ×2 (08:20→20:40)
[2017-10-30] MEDS: Carvedilol TAB* 25 MG PO SCH ×2 (08:21→20:39)
[2017-10-30] MEDS: amLODIPine TAB* 5 MG PO SCH (08:21)
[2017-10-30] MEDS: Insulin GLARGINE(*) 1 UNITS UNIT SUBCUT SCH ×2 (08:21→17:31)
[2017-10-30] MEDS: Ferrous Sulfate TAB* 325 MG PO SCH ×2 (08:21→20:39)
[2017-10-30] MEDS: Isosorbide Mononitrate ER TAB* 30 MG PO SCH (08:21)
[2017-10-30] MEDS: Insulin LISPRO* 1 UNITS UNIT SUBCUT SCH ×3 (08:21→17:31)
[2017-10-30] MEDS: Lidocaine Patch REMOVE* 1 NOTE MISC PATCH OFF SCH (08:30)
[2017-10-30] MEDS: Mometasone/Formoter 200/5 MDI INH SCH ×2 (08:45→20:19)
[2017-10-30] MEDS ORDERED: Bumetanide TAB* 2 MG PO SCH (09:00)
--- NOTE | 2017-10-30 13:00 | ED ---
Deven Adams Thomas, scribed for Magnus Taylor MD on 10/29/17 at 1558 . HPI Chest Pain - HPI Summary HPI Summary: This patient is a 62 year old M brought to [facility] by correctional officers with a chief complaint of chest pain since this morning. The pain is described as tightness. The patient rates the pain 6/10 in severity. Symptoms aggravated by sleeping on his side or back, bending over, deep breathing and speaking. Symptoms alleviated by nothing. Patient reports intermittent daily chest pain since his 2014 triple bypass. In the ED, he complains SOB, difficulty standing and ambulating. At baseline he reports orthopnea and some leg swelling. - History of Current Complaint Chief Complaint: EDChestPainROMI Time Seen by Provider: 10/29/17 15:11 Hx Obtained From: Patient Onset/Duration: Started Hours Ago, Still Present Timing: Constant, Lasting Hours Current Severity: Moderate Pain Intensity: 6 Pain Scale Used: 0-10 Numeric Character: Tightness Aggravating Factor(s): Other: - Symptoms aggravated by sleeping on his side or back, bending over, deep breathing and speaking. Alleviating Factor(s): Nothing Associated Signs and Symptoms: Positive: Other: - . Patient reports intermittent daily chest pain since his 2014 triple bypass. In the ED, he complains SOB, difficulty standing and ambulating. At baseline he reports orthopnea and some leg swelling. - Additional Pertinent History Primary Care Physician: [id number] - Allergy/Home Medications Allergies/Adverse Reactions: Allergies Allergy/AdvReac Type Severity Reaction Status Date / Time VALERIE Inhibitors Allergy Swelling Verified 10/29/17 15:09 Home Medications: Home Medications Isosorbide Mononitrate ER TAB* [Imdur ER TAB*] 30 mg PO DAILY 10/29/17 [History Confirmed 10/29/17] Ranitidine TAB (NF) [Zantac TAB (NF)] 150 mg PO BID 10/29/17 [History Confirmed 10/29/17] PMH/Surg Hx/FS Hx/Imm Hx Endocrine/Hematology History: Reports: Hx Anticoagulant Therapy, Hx Diabetes Cardiovascular History: Reports: Hx Angina, Hx Congestive Heart Failure, Hx Coronary Artery Disease, Hx Hypercholesterolemia, Hx Hypertension, Other Cardiovascular Problems/Disorders - CABG Respiratory History: Reports: Hx Asthma, Hx Chronic Obstructive Pulmonary Disease (COPD), Hx Pneumonia, Other Respiratory Problems/Disorders - PNA Denies: Hx Cystic Fibrosis, Hx Lung Cancer, Hx Pleural Effusion, Hx Seasonal Allergies GI History: Denies: Hx Cirrhosis, Hx Crohn's Disease, Hx Diverticulosis, Hx Gall Bladder Disease, Hx Gastroesophageal Reflux Disease, Hx Hiatal Hernia, Hx Jaundice History: Reports: Hx Chronic Renal Failure, Other Problems/Disorders - Kidney isease Musculoskeletal History: Reports: Hx Back Problems, Other Musculoskeletal History - oksana LE weakness Sensory History: Reports: Hx Contacts or Glasses, Hx Vision Problem - r/t DM II Denies: Hx Cataracts, Hx Eye Injury, Hx Eye Prosthesis, Hx Legally Blind, Hx Deafness, Hx Hearing Aid, Hx Hearing Problem Opthamlomology History: Reports: Hx Contacts or Glasses, Hx Vision Problem - r/ t DM II Denies: Hx Cataracts, Hx Eye Injury, Hx Eye Prosthesis, Hx Legally Blind Neurological History: Denies: Hx CVA, Hx Dementia, Hx Developmental Delay, Hx Headaches, Hx Nerve Disease, Hx Seizures, Hx Transient Ischemic Attacks (TIA), Other Neuro Impairments/Disorders Psychiatric History: Reports: Hx Anxiety - Surgical History Surgery Procedure, Year, and Place: triple bypass 03/27 - Immunization History Date of Tetanus Vaccine: unk Date of Influenza Vaccine: unk Infectious Disease History: No Infectious Disease History: Denies: Hx Clostridium Difficile, Hx Hepatitis, Hx of Known/Suspected MRSA, Hx Shingles, Hx Tuberculosis, Hx Known/Suspected VRE, Hx Known/Suspected VRSA, Traveled Outside the [place] in Last 30 Days - Family History Known Family History: Positive: Cardiac Disease, Hypertension - Social History Alcohol Use: None Substance Use Type: Reports: None Smoking Status (MU): Heavy Every Day Tobacco Smoker Type: Cigarettes Amount Used/How Often: 1/2 pack a day Have You Smoked in the Last Year: Yes Review of Systems Positive: Chest Pain Positive: Shortness Of Breath Positive: Edema All Other Systems Reviewed And Are Negative: Yes Physical Exam - Summary Physical Exam Summary: Appearance: The patient is well-nourished in no acute distress and in no acute pain. Skin: The skin is warm and dry and skin color reflects adequate perfusion. HEENT: The head is normocephalic and atraumatic. The pupils are equal and reactive. The conjunctivae are clear and without drainage. Nares are patent and without drainage. Mouth reveals moist mucous membranes and the throat is without erythema and exudate. The external ears are intact. The ear canals are patent and without drainage. The tympanic membranes are intact. No JVD or HJR. Neck: the neck is supple with full range of motion and non-tender. There are no carotid bruits. There is no neck vein distension. Respiratory: Chest is non-tender. Crackles in both bases of the lungs. Cardiovascular: Heart is regular rate and rhythm. There is no murmur or rub auscultated. There is no peripheral edema and pulses are symmetrical and equal. Abdomen: The abdomen is soft and non-tender. There are normal bowel sounds heard in all four quadrants and there is no organomegaly palpated. Musculoskeletal: There is no back tenderness noted. Extremities are non-tender with full range of motion. There is good capillary refill. There is pitting edema worse in the RLE. There is no calf tenderness elicited. Neurological: Patient is alert and oriented to person, place and time. The patient has symmetrical motor strength in all four extremities. Cranial nerves are grossly intact. Deep tendon reflexes are symmetrical and equal in all four extremities. Psychiatric: The patient has an appropriate affect and does not exhibit any anxiety or depression. Triage Information Reviewed: Yes Vital Signs On Initial Exam: Initial Vitals BP 118/60 10/29/17 15:00 Vital Signs Reviewed: Yes - Moise Coma Scale Coma Scale Total: 15 Diagnostics - Vital Signs Vital Signs Temp Pulse Resp BP Pulse Ox 10/29/17 15:46 93 10/29/17 15:01 98.3 F 77 22 118/60 87 10/29/17 15:00 118/60 - Laboratory Lab Results: Lab Results 10/29/17 10/29/17 10/29/17 Range/Units 15:53 15:53 15:53 WBC (3.5-10.8) 10^3/ul RBC (4.0-5.4) 10^6/ul RBC (Retic) Hgb (14.0-18.0) g/dl Hct (42-52) % HCT (Retic) MCV (80-94) fL MCH (27-31) pg MCHC (31-36) g/dl RDW (10.5-15) % Plt Count (150-450) 10^3/ul MPV (7.4-10.4) um3 Neut % (Auto) (38-83) % Lymph % (Auto) (25-47) % Jay % (Auto) (1-9) % Eos % (Auto) (0-6) % Baso % (Auto) (0-2) % Absolute Neuts (auto) (1.5-7.7) 10^3/ul Absolute Lymphs (auto) (1.0-4.8) 10^3/ul Absolute Monos (auto) (0-0.8) 10^3/ul Absolute Eos (auto) (0-0.6) 10^3/ul Absolute Basos (auto) (0-0.2) 10^3/ul Absolute Nucleated RBC 10^3/ul Nucleated RBC % Retic Count, Calc Corrected Retic Count Retic Shift Factor Retic Production Index Immature Retic Fraction Mean Retic Volume INR (Anticoag Therapy) 1.93 H (0.77-1.02) D-Dimer, Quantitative 205 (Less Than 230) ng/mL Sodium 139 (133-145) mmol/L Potassium 4.5 (3.5-5.0) mmol/L Chloride 108 (101-111) mmol/L Carbon Dioxide 26 (22-32) mmol/L Anion Gap 5 (2-11) mmol/L BUN 71 H (6-24) mg/dL Creatinine 4.53 H (0.67-1.17) mg/dL Est GFR ( Amer) 17.1 (>60) Est GFR (Non-Af Amer) 13.3 (>60) BUN/Creatinine Ratio 15.7 (8-20) Glucose 128 H (70-100) mg/dL Lactic Acid (0.5-2.0) mmol/L Calcium 8.7 (8.6-10.3) mg/dL Iron 34 L (50-212) ug/dL TIBC 269 (250-450) mcg/dL % Saturation 13 L (15-55) % Unsat Iron Binding 235 ug/dL Ferritin 81.7 (24-336) ng/mL Total Bilirubin 0.60 (0.2-1.0) mg/dL AST 12 L (13-39) U/L ALT 11 (7-52) U/L Alkaline Phosphatase 75 (34-104) U/L Lactate Dehydrogenase 193 (140-271) U/L Troponin I 0.04 H* (<0.04) ng/mL C-Reactive Protein 32.82 H (< 5.00) mg/L B-Natriuretic Peptide 916 H ( - 100) pg/mL Total Protein 6.5 (6.4-8.9) g/dL Albumin 3.1 L (3.2-5.2) g/dL Globulin 3.4 (2-4) g/dL Albumin/Globulin Ratio 0.9 L (1-3) Vitamin B12 807 (180-914) pg/mL Folate 13.58 (>3.99) ng/mL Procalcitonin (<0.6) ng/mL TSH 1.79 (0.34-5.60) mcIU/mL Cortisol 6.52 mcg/dL Blood Type Antibody Screen Crossmatch 10/29/17 10/29/17 10/29/17 Range/Units 15:53 15:53 15:53 WBC 10.2 (3.5-10.8) 10^3/ul RBC 2.36 L (4.0-5.4) 10^6/ul RBC (Retic) Cancelled Hgb 7.1 L (14.0-18.0) g/dl Hct 22 L (42-52) % HCT (Retic) Cancelled MCV 92 (80-94) fL MCH 30 (27-31) pg MCHC 33 (31-36) g/dl RDW 17 H (10.5-15) % Plt Count 289 (150-450) 10^3/ul MPV 7 L (7.4-10.4) um3 Neut % (Auto) 71.5 (38-83) % Lymph % (Auto) 15.3 L (25-47) % Jay % (Auto) 9.5 H (1-9) % Eos % (Auto) 3.2 (0-6) % Baso % (Auto) 0.5 (0-2) % Absolute Neuts (auto) 7.3 (1.5-7.7) 10^3/ul Absolute Lymphs (auto) 1.6 (1.0-4.8) 10^3/ul Absolute Monos (auto) 1.0 H (0-0.8) 10^3/ul Absolute Eos (auto) 0.3 (0-0.6) 10^3/ul Absolute Basos (auto) 0 (0-0.2) 10^3/ul Absolute Nucleated RBC 0 10^3/ul Nucleated RBC % 0.2 Retic Count, Calc Cancelled Corrected Retic Count Cancelled Retic Shift Factor Cancelled Retic Production Index Cancelled Immature Retic Fraction Cancelled Mean Retic Volume Cancelled INR (Anticoag Therapy) (0.77-1.02) D-Dimer, Quantitative (Less Than 230) ng/mL Sodium (133-145) mmol/L Potassium (3.5-5.0) mmol/L Chloride (101-111) mmol/L Carbon Dioxide (22-32) mmol/L Anion Gap (2-11) mmol/L BUN (6-24) mg/dL Creatinine (0.67-1.17) mg/dL Est GFR ( Amer) (>60) Est GFR (Non-Af Amer) (>60) BUN/Creatinine Ratio (8-20) Glucose (70-100) mg/dL Lactic Acid 1.1 (0.5-2.0) mmol/L Calcium (8.6-10.3) mg/dL Iron (50-212) ug/dL TIBC (250-450) mcg/dL % Saturation (15-55) % Unsat Iron Binding ug/dL Ferritin (24-336) ng/mL Total Bilirubin (0.2-1.0) mg/dL AST (13-39) U/L ALT (7-52) U/L Alkaline Phosphatase (34-104) U/L Lactate Dehydrogenase (140-271) U/L Troponin I (<0.04) ng/mL C-Reactive Protein (< 5.00) mg/L B-Natriuretic Peptide ( - 100) pg/mL Total Protein (6.4-8.9) g/dL Albumin (3.2-5.2) g/dL Globulin (2-4) g/dL Albumin/Globulin Ratio (1-3) Vitamin B12 (180-914) pg/mL Folate (>3.99) ng/mL Procalcitonin (<0.6) ng/mL TSH (0.34-5.60) mcIU/mL Cortisol mcg/dL Blood Type A Positive Antibody Screen Negative Crossmatch See Detail 10/29/17 Range/Units 15:53 WBC (3.5-10.8) 10^3/ul RBC (4.0-5.4) 10^6/ul RBC (Retic) Hgb (14.0-18.0) g/dl Hct (42-52) % HCT (Retic) MCV (80-94) fL MCH (27-31) pg MCHC (31-36) g/dl RDW (10.5-15) % Plt Count (150-450) 10^3/ul MPV (7.4-10.4) um3 Neut % (Auto) (38-83) % Lymph % (Auto) (25-47) % Jay % (Auto) (1-9) % Eos % (Auto) (0-6) % Baso % (Auto) (0-2) % Absolute Neuts (auto) (1.5-7.7) 10^3/ul Absolute Lymphs (auto) (1.0-4.8) 10^3/ul Absolute Monos (auto) (0-0.8) 10^3/ul Absolute Eos (auto) (0-0.6) 10^3/ul Absolute Basos (auto) (0-0.2) 10^3/ul Absolute Nucleated RBC 10^3/ul Nucleated RBC % Retic Count, Calc Corrected Retic Count Retic Shift Factor Retic Production Index Immature Retic Fraction Mean Retic Volume INR (Anticoag Therapy) (0.77-1.02) D-Dimer, Quantitative (Less Than 230) ng/mL Sodium (133-145) mmol/L Potassium (3.5-5.0) mmol/L Chloride (101-111) mmol/L Carbon Dioxide (22-32) mmol/L Anion Gap (2-11) mmol/L BUN (6-24) mg/dL Creatinine (0.67-1.17) mg/dL Est GFR ( Amer) (>60) Est GFR (Non-Af Amer) (>60) BUN/Creatinine Ratio (8-20) Glucose (70-100) mg/dL Lactic Acid (0.5-2.0) mmol/L Calcium (8.6-10.3) mg/dL Iron (50-212) ug/dL TIBC (250-450) mcg/dL % Saturation (15-55) % Unsat Iron Binding ug/dL Ferritin (24-336) ng/mL Total Bilirubin (0.2-1.0) mg/dL AST (13-39) U/L ALT (7-52) U/L Alkaline Phosphatase (34-104) U/L Lactate Dehydrogenase (140-271) U/L Troponin I (<0.04) ng/mL C-Reactive Protein (< 5.00) mg/L B-Natriuretic Peptide ( - 100) pg/mL Total Protein (6.4-8.9) g/dL Albumin (3.2-5.2) g/dL Globulin (2-4) g/dL Albumin/Globulin Ratio (1-3) Vitamin B12 (180-914) pg/mL Folate (>3.99) ng/mL Procalcitonin 0.1 (<0.6) ng/mL TSH (0.34-5.60) mcIU/mL Cortisol mcg/dL Blood Type Antibody Screen Crossmatch Result Diagrams: 10/30/17 05:54 10/30/17 05:54 Lab Statement: Any lab studies that have been ordered have been reviewed, and results considered in the medical decision making process. - Radiology CXR Xray Interpretation: Positive (See Comments) - The constellation of findings is most consistent with bronchopneumonia. ED physician has reviewed this radiology report. Radiology Interpretation Completed By: Radiologist - EKG 1507 Cardiac Rate: NL EKG Rhythm: Sinus Rhythm - 74 BPM EKG Interpretation: Inverted T waves inferolaterally consistent with 10/10/17 Chest Pain Course/Dx - Course Course Of Treatment: Mr. Wright presented with CP and SOB. He has a long history of both and was recently admitted for COPD exacerbation and CHF. On arrival, it was clear thet he had some respiratory insufficiency however he did not appear to be in CHF. He was however more anemic than normal and this may be causing his increased symptoms as well as COPD. I asked the hospitalists to admit him. - Diagnoses Provider Diagnoses: Anemia, Respiratory insufficiency, COPD (chronic obstructive pulmonary disease) - Provider Notifications Discussed Care Of Patient With: Mahesh Walton Time Discussed With Above Provider: 17:37 Instructed by Provider To: Admit As Inpatient Discharge - Discharge Plan Condition: Stable Disposition: ADMITTED TO [facility] The documentation as recorded by the Deven briones Thomas accurately reflects the service I personally performed and the decisions made by me, Magnus Taylor MD.
[2017-10-30] MEDS: Metolazone TAB* 5 MG PO SCH (14:09)
[2017-10-30] MEDS ORDERED: Bumetanide TAB* 2 MG PO ONE (14:30)
--- NOTE | 2017-10-30 18:33 | PN ---
Subjective Date of Service: 10/30/17 Interval History: Pt subjectively SOB. orthopneic. Weight up at 5 points. BNP up. Put on fluid restriction 1.5L around 1pm but unfortunately has already drunk 3L by 6pm. Last colonoscopy was around 2005, denies any polyps. Has had black stools for last couple years (since circa 2014)on iron supplementation. Has not seen Melt Superintendant in many years. Objective Active Medications: Acetaminophen (Tylenol Tab*) 650 mg PO Q4H PRN PRN Reason: FEVER/PAIN Albuterol (Ventolin Hfa Inhaler*) 1 puff INH Q4H PRN PRN Reason: SHORTNESS OF BREATH Last Admin: 10/30/17 13:45 Dose: 2 puff Amlodipine Besylate (Norvasc Tab*) 10 mg PO DAILY [facility] Last Admin: 10/30/17 08:21 Dose: 10 mg Atorvastatin Calcium (Lipitor*) 20 mg PO DAILY [facility] Last Admin: 10/30/17 08:20 Dose: 20 mg Bumetanide (Bumex Tab*) 2 mg PO BID [facility] Carvedilol (Coreg Tab*) 25 mg PO BID [facility] Last Admin: 10/30/17 08:21 Dose: 25 mg Dextrose (D50w Syringe 50 Ml*) 12.5 gm IV PUSH .FOR FS < 60 - SS PRN PRN Reason: FS < 60 Famotidine (Pepcid Tab*) 20 mg PO BID [facility] PRN Reason: Protocol Last Admin: 10/30/17 08:20 Dose: 20 mg Ferrous Sulfate (Ferrous Sulfate Tab*) 325 mg PO BID [facility] Last Admin: 10/30/17 08:21 Dose: 325 mg Azithromycin 500 mg/ Sodium (Chloride) 250 mls @ 250 mls/hr IVPB Q24H [facility] Last Admin: 10/29/17 22:56 Dose: 250 mls/hr Ceftriaxone Sodium 1 gm/ (Sodium Chloride) 50 mls @ 200 mls/hr IVPB 2000 [facility] Last Admin: 10/29/17 21:00 Dose: 200 mls/hr Insulin Glargine (Lantus(*)) 15 units SUBCUT QPM [facility] Last Admin: 10/30/17 17:31 Dose: 15 units Insulin Glargine (Lantus(*)) 25 units SUBCUT QAM [facility] Last Admin: 10/30/17 08:21 Dose: 25 units Insulin Human Lispro (Humalog*) 0 units SUBCUT AC [facility] PRN Reason: Protocol Last Admin: 10/30/17 17:31 Dose: 3 units Isosorbide Mononitrate (Imdur Er Tab*) 30 mg PO DAILY [facility] Last Admin: 10/30/17 08:21 Dose: 30 mg Lidocaine (Lidoderm 5% Patch*) 1 patch TRANSDERM 2100 [facility] Last Admin: 10/29/17 22:53 Dose: 1 patch Metolazone (Zaroxolyn Tab*) 5 mg PO DAILY [facility] Last Admin: 10/30/17 14:09 Dose: 5 mg Mometasone Furoate/Formoterol Fumar (Dulera 200/5 Mdi*) 2 puff INH BID [facility] PRN Reason: Protocol Last Admin: 10/30/17 08:45 Dose: 2 puff Ondansetron HCl (Zofran Inj*) 4 mg IV Q6H PRN PRN Reason: NAUSEA Last Admin: 10/30/17 08:21 Dose: 4 mg Pharmacy Profile Note (Lidocaine Patch Remove*) 1 note PATCH OFF 0900 [facility] Last Admin: 10/30/17 08:30 Dose: 1 note Vital Signs - 8 hr 10/30/17 10/30/17 11:24 15:37 Temperature 98.8 F 98.6 F Pulse Rate 68 75 Respiratory 18 20 Rate Blood Pressure 118/43 113/46 (mmHg) O2 Sat by Pulse 96 93 Oximetry Oxygen Devices in Use Now: Nasal Cannula Appearance: Chronically ill appearing. Dyspneic. Eyes: No Scleral Icterus, PERRLA Ears/Nose/Mouth/Throat: NL Teeth, Lips, Gums, Mucous Membranes Moist Neck: NL Appearance and Movements; NL JVP, Trachea Midline Respiratory: - - rales at bilateral bases. Cardiovascular: NL Sounds; No Murmurs; No JVD, RRR Abdominal: - - distended. Extremities: No Edema, - - 1+ edema Skin: No Rash or Ulcers, No Nodules or Sclerosis Neurological: Alert and Oriented x 3, NL Sensation, NL Muscle Strength and Tone Result Diagrams: 10/30/17 05:54 10/30/17 05:54 Additional Lab and Data: Laboratory Results - last 24 hr 10/29/17 10/29/17 10/29/17 15:53 15:53 15:53 WBC 10.2 RBC 2.36 L RBC (Retic) Cancelled Hgb 7.1 L Hct 22 L HCT (Retic) Cancelled MCV 92 MCH 30 MCHC 33 RDW 17 H Plt Count 289 MPV 7 L Neut % (Auto) 71.5 Lymph % (Auto) 15.3 L [place] % (Auto) 9.5 H Eos % (Auto) 3.2 Baso % (Auto) 0.5 Absolute Neuts (auto) 7.3 Absolute Lymphs (auto) 1.6 Absolute Monos (auto) 1.0 H Absolute Eos (auto) 0.3 Absolute Basos (auto) 0 Absolute Nucleated RBC 0 Nucleated RBC % 0.2 Retic Count, Calc Cancelled Corrected Retic Count Cancelled Retic Shift Factor Cancelled Retic Production Index Cancelled Immature Retic Fraction Cancelled Mean Retic Volume Cancelled INR (Anticoag Therapy) Sodium 139 Potassium 4.5 Chloride 108 Carbon Dioxide 26 Anion Gap 5 BUN 71 H Creatinine 4.53 H Est GFR ( Amer) 17.1 Est GFR (Non-Af Amer) 13.3 BUN/Creatinine Ratio 15.7 Glucose 128 H POC Glucose (mg/dL) Calcium 8.7 Iron 34 L TIBC 269 % Saturation 13 L Unsat Iron Binding 235 Ferritin 81.7 Total Bilirubin 0.60 AST 12 L ALT 11 Alkaline Phosphatase 75 Lactate Dehydrogenase 193 Troponin I 0.04 H* C-Reactive Protein 32.82 H Total Protein 6.5 Albumin 3.1 L Globulin 3.4 Albumin/Globulin Ratio 0.9 L Vitamin B12 807 Folate 13.58 Procalcitonin TSH 1.79 Cortisol 6.52 Influenza A (Rapid) Influenza B (Rapid) Blood Type A Positive Antibody Screen Negative Crossmatch See Detail Transfusion React Rpt Donor Unit # Post-Trans Blood Type Post-Trans RYANNE Reaction Interpretation 10/29/17 10/29/17 10/29/17 15:53 18:55 18:55 WBC RBC RBC (Retic) 2.53 L Hgb 7.5 L Hct 23 L HCT (Retic) 23 L MCV MCH MCHC RDW Plt Count MPV Neut % (Auto) Lymph % (Auto) [place] % (Auto) Eos % (Auto) Baso % (Auto) Absolute Neuts (auto) Absolute Lymphs (auto) Absolute Monos (auto) Absolute Eos (auto) Absolute Basos (auto) Absolute Nucleated RBC Nucleated RBC % Retic Count, Calc 4.6 H Corrected Retic Count 2.4 H Retic Shift Factor 2.0 Retic Production Index 1.20 Immature Retic Fraction 0.57 Mean Retic Volume 122.9 INR (Anticoag Therapy) Sodium Potassium Chloride Carbon Dioxide Anion Gap BUN Creatinine Est GFR ( Amer) Est GFR (Non-Af Amer) BUN/Creatinine Ratio Glucose POC Glucose (mg/dL) Calcium Iron TIBC % Saturation Unsat Iron Binding Ferritin Total Bilirubin AST ALT Alkaline Phosphatase Lactate Dehydrogenase Troponin I C-Reactive Protein Total Protein Albumin Globulin Albumin/Globulin Ratio Vitamin B12 Folate Procalcitonin 0.1 TSH Cortisol Influenza A (Rapid) Influenza B (Rapid) Blood Type Antibody Screen Crossmatch Transfusion React Rpt Donor Unit # Post-Trans Blood Type Post-Trans RYANNE Reaction Interpretation 10/29/17 10/29/17 10/29/17 18:55 19:03 19:12 WBC RBC RBC (Retic) Hgb Hct HCT (Retic) MCV MCH MCHC RDW Plt Count MPV Neut % (Auto) Lymph % (Auto) [place] % (Auto) Eos % (Auto) Baso % (Auto) Absolute Neuts (auto) Absolute Lymphs (auto) Absolute Monos (auto) Absolute Eos (auto) Absolute Basos (auto) Absolute Nucleated RBC Nucleated RBC % Retic Count, Calc Corrected Retic Count Retic Shift Factor Retic Production Index Immature Retic Fraction Mean Retic Volume INR (Anticoag Therapy) Sodium Potassium Chloride Carbon Dioxide Anion Gap BUN Creatinine Est GFR ( Amer) Est GFR (Non-Af Amer) BUN/Creatinine Ratio Glucose POC Glucose (mg/dL) 150 H Calcium Iron TIBC % Saturation Unsat Iron Binding Ferritin Total Bilirubin AST ALT Alkaline Phosphatase Lactate Dehydrogenase Troponin I 0.05 H* C-Reactive Protein Total Protein Albumin Globulin Albumin/Globulin Ratio Vitamin B12 Folate Procalcitonin TSH Cortisol Influenza A (Rapid) Negative Influenza B (Rapid) Negative Blood Type Antibody Screen Crossmatch Transfusion React Rpt Donor Unit # Post-Trans Blood Type Post-Trans RYANNE Reaction Interpretation 10/29/17 10/29/17 10/29/17 22:37 22:41 23:40 WBC RBC RBC (Retic) Hgb 7.0 L Hct 22 L HCT (Retic) MCV MCH MCHC RDW Plt Count MPV Neut % (Auto) Lymph % (Auto) [place] % (Auto) Eos % (Auto) Baso % (Auto) Absolute Neuts (auto) Absolute Lymphs (auto) Absolute Monos (auto) Absolute Eos (auto) Absolute Basos (auto) Absolute Nucleated RBC Nucleated RBC % Retic Count, Calc Corrected Retic Count Retic Shift Factor Retic Production Index Immature Retic Fraction Mean Retic Volume INR (Anticoag Therapy) Sodium Potassium Chloride Carbon Dioxide Anion Gap BUN Creatinine Est GFR ( Amer) Est GFR (Non-Af Amer) BUN/Creatinine Ratio Glucose POC Glucose (mg/dL) Calcium Iron TIBC % Saturation Unsat Iron Binding Ferritin Total Bilirubin AST ALT Alkaline Phosphatase Lactate Dehydrogenase Troponin I 0.05 H* C-Reactive Protein Total Protein Albumin Globulin Albumin/Globulin Ratio Vitamin B12 Folate Procalcitonin TSH Cortisol Influenza A (Rapid) Influenza B (Rapid) Blood Type Antibody Screen Crossmatch Transfusion React Rpt Donor Unit # [id number] Post-Trans Blood Type A Positive Post-Trans RYANNE Negative Reaction Interpretation 10/30/17 10/30/17 10/30/17 05:54 05:54 05:54 WBC 11.0 H RBC 2.57 L RBC (Retic) Hgb 7.8 L Hct 24 L HCT (Retic) MCV 92 MCH 30 MCHC 33 RDW 17 H Plt Count 263 MPV 7 L Neut % (Auto) 70.2 Lymph % (Auto) 16.6 L [place] % (Auto) 9.3 H Eos % (Auto) 3.1 Baso % (Auto) 0.8 Absolute Neuts (auto) 7.7 Absolute Lymphs (auto) 1.8 Absolute Monos (auto) 1.0 H Absolute Eos (auto) 0.3 Absolute Basos (auto) 0.1 Absolute Nucleated RBC 0 Nucleated RBC % 0.1 Retic Count, Calc Corrected Retic Count Retic Shift Factor Retic Production Index Immature Retic Fraction Mean Retic Volume INR (Anticoag Therapy) 1.92 H Sodium 137 Potassium 4.2 Chloride 108 Carbon Dioxide 23 Anion Gap 6 BUN 73 H Creatinine 4.59 H Est GFR ( Amer) 16.9 Est GFR (Non-Af Amer) 13.1 BUN/Creatinine Ratio 15.9 Glucose 159 H POC Glucose (mg/dL) Calcium 8.2 L Iron TIBC % Saturation Unsat Iron Binding Ferritin Total Bilirubin AST ALT Alkaline Phosphatase Lactate Dehydrogenase Troponin I C-Reactive Protein Total Protein Albumin Globulin Albumin/Globulin Ratio Vitamin B12 Folate Procalcitonin TSH Cortisol Influenza A (Rapid) Influenza B (Rapid) Blood Type Antibody Screen Crossmatch Transfusion React Rpt Donor Unit # Post-Trans Blood Type Post-Trans RYANNE Reaction Interpretation 10/30/17 10/30/17 10/30/17 07:17 11:09 16:50 WBC RBC RBC (Retic) Hgb Hct HCT (Retic) MCV MCH MCHC RDW Plt Count MPV Neut % (Auto) Lymph % (Auto) [place] % (Auto) Eos % (Auto) Baso % (Auto) Absolute Neuts (auto) Absolute Lymphs (auto) Absolute Monos (auto) Absolute Eos (auto) Absolute Basos (auto) Absolute Nucleated RBC Nucleated RBC % Retic Count, Calc Corrected Retic Count Retic Shift Factor Retic Production Index Immature Retic Fraction Mean Retic Volume INR (Anticoag Therapy) Sodium Potassium Chloride Carbon Dioxide Anion Gap BUN Creatinine Est GFR ( Amer) Est GFR (Non-Af Amer) BUN/Creatinine Ratio Glucose POC Glucose (mg/dL) 163 H 213 H 163 H Calcium Iron TIBC % Saturation Unsat Iron Binding Ferritin Total Bilirubin AST ALT Alkaline Phosphatase Lactate Dehydrogenase Troponin I C-Reactive Protein Total Protein Albumin Globulin Albumin/Globulin Ratio Vitamin B12 Folate Procalcitonin TSH Cortisol Influenza A (Rapid) Influenza B (Rapid) Blood Type Antibody Screen Crossmatch Transfusion React Rpt Donor Unit # Post-Trans Blood Type Post-Trans RYANNE Reaction Interpretation Microbiology and Other Data: Microbiology 10/29/17 15:53 Blood Venous Aerobic Blood Culture - Preliminary No Growth Day 1 10/29/17 15:53 Blood Venous Anaerobic Blood Culture - Preliminary No Growth Day 1 10/29/17 15:53 Blood Venous Aerobic Blood Culture - Preliminary No Growth Day 1 10/29/17 15:53 Blood Venous Anaerobic Blood Culture - Preliminary No Growth Day 1 10/29/17 22:37 Blood Bag Transfusion Reaction Culture - Preliminary Culture Under Incubation 10/29/17 22:37 Blood Bag Transfusion Reaction Gram Stain - Final 10/29/17 18:34 Nasal Nasal Screen MRSA (PCR)(OLESYA) - Final Mrsa Negative 10/29/17 20:00 Urine Legionella Urinary Antigen - Final Negative Legionella 10/29/17 20:00 Urine Streptococcus pneumoniae Ag Screen - Final Negative S. pneumo Antigen 10/29/17 18:50 Nasal Influenza Types A,B Antigen (OLESYA) - Final Specimen received for Influenza A/B Molecular testing 10/29/17 17:30 Stool Stool Occult Blood (OLESYA) - Final Assess/Plan/Problems-Billing Assessment: 62 yo male H CKD Stage 4, nephrotic syndrome, CAD s/p CABG, CHF, COPD current smoker 1.5 ppd, Afib on coumadin, IDDM, incarcerated for rest of his life ( currently [facility]), recent CHF exaccerbation p/w with acute hypoxic respiratory failure, increase in weight. Likely recurrent Acute CHF. - Patient Problems (1) Acute respiratory failure with hypoxia Current Visit: Yes Status: Acute Code(s): J96.01 - ACUTE RESPIRATORY FAILURE WITH HYPOXIA SNOMED Code(s): 44889172 Comment: Multifactorial 2/2 acute diastolic heart failure (most prominent), anemia and COPD with current smoking. Continue diuresis as below. continue cftx, azithromycin for now. procalcitonin was negative. (2) CHF (congestive heart failure) Current Visit: No Status: Acute Code(s): I50.9 - HEART FAILURE, UNSPECIFIED SNOMED Code(s): 52316818 Comment: - has gained back all the weight since 10/14 discharge. was discharged on bumex 2mg daily. - daily weights. - BNP back up to 916. - rales on exam. - add metolazone 5mg daily and increase to bumex 2mg BID - fluid restriction 1.5L daily. - Echo 10/13/17 shows preserved systolic function, EF 60-65%. diastolic dysfunction. Renal dysfunction not helping. (3) PVD (peripheral vascular disease) Current Visit: Yes Status: Acute Code(s): I73.9 - PERIPHERAL VASCULAR DISEASE, UNSPECIFIED SNOMED Code(s): 796978555 (4) CKD (chronic kidney disease) stage 4, GFR 15-29 ml/min Current Visit: No Status: Acute Code(s): N18.4 - CHRONIC KIDNEY DISEASE, STAGE 4 (SEVERE) SNOMED Code(s): 048769966 Comment: - DISABILITY AIDE near recent baseline 4.5. - nephrology outpatient follow-up vs inpatient. (5) Afib Current Visit: Yes Status: Acute Code(s): I48.91 - UNSPECIFIED ATRIAL FIBRILLATION SNOMED Code(s): 46166997 Comment: was on warfarin 6mg daily. INR 1.9 but held given transfusion requiring anemia. 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 (8) Anemia Current Visit: Yes Status: Acute Code(s): D64.9 - ANEMIA, UNSPECIFIED SNOMED Code(s): 644863265 Comment: Normocytic. Likely multifactorial from MILVIA and CKD stage IV. Iron 34 , Iron Sat 13%, Ferritin 81 consider IV iron and epogen. continue po iron for now. stool occult blood is negative last colonoscopy 2005. Status and Disposition: medicine inpatient. Attending: Davonte Escalera
[2017-10-30] MEDS: cefTRIAXone(*) 1 GM in NS 0.9% 50 ML* 50 ML IVPB SCH (20:36)
[2017-10-30] MEDS: Lidocaine PATCH 5%* 1 PATCH TRANSDERM SCH (20:39)
[2017-10-30] MEDS: Azithromycin IV(*) 500 MG in NS 0.9% 250 ML* 250 ML IVPB SCH (21:21)
[2017-10-31] MEDS: Insulin LISPRO* 1 UNITS UNIT SUBCUT SCH ×3 (07:52→17:32)
[2017-10-31 08:11] LABS: ABS Basophils 0.1 10^3/ul (0-0.2); ABS Eosinophils 0.3 10^3/ul (0-0.6); ABS Lymphocytes 1.2 10^3/ul (1.0-4.8); ABS Neutrophils 8.3 10^3/ul (1.5-7.7); ABS Nucleated RBC 0 10^3/ul; Hematocrit 25 % (42-52); Hemoglobin 8.1 g/dl (14.0-18.0); Lymphocyte % 11.2 % (25-47); Mean Corpuscular HGB Conc 33 g/dl (31-36); Mean Corpuscular Hemoglobin 30 pg (27-31); Mean Corpuscular Volume 92 fL (80-94); Mean Platelet Volume 7 um3 (7.4-10.4); Nucleated Red Blood Cells % 0.1; Platelet Count 256 10^3/ul (150-450); Red Blood Count 2.68 10^6/ul (4.0-5.4); Red Cell Distribution Width 17 % (10.5-15); White Blood Count 10.9 10^3/ul (3.5-10.8)
[2017-10-31 08:23] LABS: EGFR Non-African American 12.6 (>60)
[2017-10-31] MEDS: Mometasone/Formoter 200/5 MDI INH SCH ×2 (08:41→19:51)
[2017-10-31] MEDS ORDERED: Bumetanide TAB* 2 MG PO SCH (09:00)
[2017-10-31] MEDS: Insulin GLARGINE(*) 1 UNITS UNIT SUBCUT SCH ×2 (09:02→18:10)
[2017-10-31] MEDS: Metolazone TAB* 5 MG PO SCH (09:03)
[2017-10-31] MEDS: Carvedilol TAB* 25 MG PO SCH ×2 (09:03→20:45)
[2017-10-31] MEDS: Isosorbide Mononitrate ER TAB* 30 MG PO SCH (09:03)
[2017-10-31] MEDS: Atorvastatin* 20 MG TAB PO SCH (09:04)
[2017-10-31] MEDS: Famotidine TAB* 20 MG PO SCH ×2 (09:04→20:45)
[2017-10-31] MEDS: amLODIPine TAB* 5 MG PO SCH (09:04)
[2017-10-31] MEDS: Ferrous Sulfate TAB* 325 MG PO SCH ×2 (09:04→20:45)
[2017-10-31] MEDS: Lidocaine Patch REMOVE* 1 NOTE MISC PATCH OFF SCH (09:05)
[2017-10-31] MEDS: Acetaminophen TAB* 325 MG PO PRN (09:47)
--- NOTE | 2017-10-31 18:25 | PN ---
Subjective Date of Service: 10/31/17 Interval History: Afib with controlled rates, 2.5 sec pause in AM. Feeling very winded with ambulation. Light headed and tired. No chest pain. Nephrology appointment had been scheduled in [place] for patient after last admission but had not seen yet. not clear name or date. Objective Active Medications: Acetaminophen (Tylenol Tab*) 650 mg PO Q4H PRN PRN Reason: FEVER/PAIN Last Admin: 10/31/17 09:47 Dose: 650 mg Albuterol (Ventolin Hfa Inhaler*) 1 puff INH Q4H PRN PRN Reason: SHORTNESS OF BREATH Last Admin: 10/30/17 13:45 Dose: 2 puff Atorvastatin Calcium (Lipitor*) 20 mg PO DAILY [facility] Last Admin: 10/31/17 09:04 Dose: 20 mg Bumetanide (Bumex*) 2 mg SLOW PUSH Q8H [facility] Carvedilol (Coreg Tab*) 25 mg PO BID [facility] Last Admin: 10/31/17 09:03 Dose: 25 mg Dextrose (D50w Syringe 50 Ml*) 12.5 gm IV PUSH .FOR FS < 60 - SS PRN PRN Reason: FS < 60 Famotidine (Pepcid Tab*) 20 mg PO BID [facility] PRN Reason: Protocol Last Admin: 10/31/17 09:04 Dose: 20 mg Ferrous Sulfate (Ferrous Sulfate Tab*) 325 mg PO BID [facility] Last Admin: 10/31/17 09:04 Dose: 325 mg Azithromycin 500 mg/ Sodium (Chloride) 250 mls @ 250 mls/hr IVPB Q24H [facility] Last Admin: 10/30/17 21:21 Dose: 250 mls/hr Ceftriaxone Sodium 1 gm/ (Sodium Chloride) 50 mls @ 200 mls/hr IVPB 2000 [facility] Last Admin: 10/30/17 20:36 Dose: 200 mls/hr Insulin Glargine (Lantus(*)) 15 units SUBCUT QPM [facility] Last Admin: 10/31/17 18:10 Dose: 15 units Insulin Glargine (Lantus(*)) 25 units SUBCUT QAM [facility] Last Admin: 10/31/17 09:02 Dose: 25 units Insulin Human Lispro (Humalog*) 0 units SUBCUT AC [facility] PRN Reason: Protocol Last Admin: 10/31/17 17:32 Dose: Not Given Isosorbide Mononitrate (Imdur Er Tab*) 30 mg PO DAILY [facility] Last Admin: 10/31/17 09:03 Dose: 30 mg Lidocaine (Lidoderm 5% Patch*) 1 patch TRANSDERM 2100 [facility] Last Admin: 10/30/17 20:39 Dose: 1 patch Metolazone (Zaroxolyn Tab*) 5 mg PO DAILY [facility] Last Admin: 10/31/17 09:03 Dose: 5 mg Mometasone Furoate/Formoterol Fumar (Dulera 200/5 Mdi*) 2 puff INH BID [facility] PRN Reason: Protocol Last Admin: 10/31/17 08:41 Dose: 2 puff Ondansetron HCl (Zofran Inj*) 4 mg IV Q6H PRN PRN Reason: NAUSEA Last Admin: 10/30/17 08:21 Dose: 4 mg Pharmacy Profile Note (Lidocaine Patch Remove*) 1 note PATCH OFF 0900 [facility] Last Admin: 10/31/17 09:05 Dose: 1 note Vital Signs - 8 hr 10/31/17 10/31/17 11:19 15:45 Temperature 98.2 F 97.4 F Pulse Rate 69 67 Respiratory 16 20 Rate Blood Pressure 116/45 112/36 (mmHg) O2 Sat by Pulse 96 97 Oximetry Oxygen Devices in Use Now: Nasal Cannula Appearance: Chronically ill appearing. tired. Eyes: No Scleral Icterus, PERRLA Respiratory: - - decreased at bases. less rales. no wheezing or rhonchi. Cardiovascular: - - irregularly irregular, not tachycardic. no murmurs, rubs or gallops. Abdominal: - - soft nontender, nondistended. Extremities: - - 1+ edema b/l Skin: No Rash or Ulcers, No Nodules or Sclerosis Neurological: Alert and Oriented x 3, NL Sensation, NL Muscle Strength and Tone Nutrition: Taking PO's Result Diagrams: 10/31/17 07:43 10/31/17 07:43 Additional Lab and Data: Laboratory Results - last 24 hr 10/29/17 10/31/17 10/31/17 15:53 07:43 07:43 WBC 10.9 H RBC 2.68 L Hgb 8.1 L Hct 25 L MCV 92 MCH 30 MCHC 33 RDW 17 H Plt Count 256 MPV 7 L Neut % (Auto) 75.8 Lymph % (Auto) 11.2 L Iron % (Auto) 9.5 H Eos % (Auto) 3.0 Baso % (Auto) 0.5 Absolute Neuts (auto) 8.3 H Absolute Lymphs (auto) 1.2 Absolute Monos (auto) 1.0 H Absolute Eos (auto) 0.3 Absolute Basos (auto) 0.1 Absolute Nucleated RBC 0 Nucleated RBC % 0.1 Sodium 139 Potassium 4.0 Chloride 107 Carbon Dioxide 25 Anion Gap 7 BUN 72 H Creatinine 4.77 H Est GFR ( Amer) 16.2 Est GFR (Non-Af Amer) 12.6 BUN/Creatinine Ratio 15.1 Glucose 95 POC Glucose (mg/dL) Calcium 8.3 L Magnesium 2.1 Transferrin 183 L Erythropoietin 172 H 10/31/17 10/31/17 10/31/17 07:45 11:51 17:19 WBC RBC Hgb Hct MCV MCH MCHC RDW Plt Count MPV Neut % (Auto) Lymph % (Auto) Iron % (Auto) Eos % (Auto) Baso % (Auto) Absolute Neuts (auto) Absolute Lymphs (auto) Absolute Monos (auto) Absolute Eos (auto) Absolute Basos (auto) Absolute Nucleated RBC Nucleated RBC % Sodium Potassium Chloride Carbon Dioxide Anion Gap BUN Creatinine Est GFR ( Amer) Est GFR (Non-Af Amer) BUN/Creatinine Ratio Glucose POC Glucose (mg/dL) 119 H 327 H 113 H Calcium Magnesium Transferrin Erythropoietin Microbiology and Other Data: Microbiology 10/29/17 15:53 Blood Venous Aerobic Blood Culture - Preliminary No Growth Day 2 10/29/17 15:53 Blood Venous Anaerobic Blood Culture - Preliminary No Growth Day 2 10/29/17 15:53 Blood Venous Aerobic Blood Culture - Preliminary No Growth Day 2 10/29/17 15:53 Blood Venous Anaerobic Blood Culture - Preliminary No Growth Day 2 10/29/17 22:37 Blood Bag Transfusion Reaction Culture - Preliminary No Growth Day 2 10/29/17 22:37 Blood Bag Transfusion Reaction Gram Stain - Final Assess/Plan/Problems-Billing Assessment: 62 yo male [facility] CKD Stage 4, nephrotic syndrome, CAD s/p CABG, CHF, COPD current smoker 1.5 ppd, Afib on coumadin, IDDM, incarcerated for rest of his life ( currently [facility]), recent CHF exaccerbation p/w with acute hypoxic respiratory failure, increase in weight. Likely recurrent Acute CHF in setting of chronic renal disease. - Patient Problems (1) Acute respiratory failure with hypoxia Current Visit: Yes Status: Acute Code(s): J96.01 - ACUTE RESPIRATORY FAILURE WITH HYPOXIA SNOMED Code(s): 06824088 Comment: Multifactorial 2/2 acute diastolic heart failure (most prominent), anemia and COPD with current smoking. Continue diuresis as below. continue cftx, azithromycin for now. procalcitonin was negative. (2) CHF (congestive heart failure) Current Visit: No Status: Acute Code(s): I50.9 - HEART FAILURE, UNSPECIFIED SNOMED Code(s): 48607384 Comment: - has gained back all the weight since 10/14 discharge. was discharged on bumex 2mg daily. - daily weights. - BNP back up to 916. - rales on exam (improved today) - continue metolazone 5mg daily (30 minute prior to one of bumex doses) and increase to bumex 2mg IV q8hr from po BID - fluid restriction 1.5L daily. - Echo 10/13/17 shows preserved systolic function, EF 60-65%. diastolic dysfunction. Renal dysfunction not helping. 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 - nephrology outpatient follow-up in [place] as soon as can be arranged after discharge. No emergent need for HD but very likely will require in future. Consult placed to Dr. Bear though not in town currently. (4) Afib Current Visit: Yes Status: Acute Code(s): I48.91 - UNSPECIFIED ATRIAL FIBRILLATION SNOMED Code(s): 36224280 Comment: was on warfarin 6mg daily. INR 1.9 but held given transfusion requiring anemia. 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 (7) Anemia Current Visit: Yes Status: Acute Code(s): D64.9 - ANEMIA, UNSPECIFIED SNOMED Code(s): 097270695 Comment: Normocytic. Likely multifactorial from MILVIA and CKD stage IV. Iron 34 , Iron Sat 13%, Ferritin 81 Consider epogen. continue po iron for now. stool occult blood is negative last colonoscopy 2005. (8) PVD (peripheral vascular disease) Current Visit: Yes Status: Acute Code(s): I73.9 - PERIPHERAL VASCULAR DISEASE, UNSPECIFIED SNOMED Code(s): 896357325 Status and Disposition: medicine inpatient. Attending: Davonte Escalera
[2017-10-31] MEDS: Bumetanide IV* 0.25 MG/ML 4 ML VIAL SLOW PUSH SCH (19:09)
[2017-10-31] MEDS: cefTRIAXone(*) 1 GM in NS 0.9% 50 ML* 50 ML IVPB SCH (19:44)
[2017-10-31] MEDS: Lidocaine PATCH 5%* 1 PATCH TRANSDERM SCH (20:44)
[2017-10-31] MEDS: Azithromycin IV(*) 500 MG in NS 0.9% 250 ML* 250 ML IVPB SCH (20:44)
[2017-11-01] MEDS: Bumetanide IV* 0.25 MG/ML 4 ML VIAL SLOW PUSH SCH ×3 (02:07→18:01)
[2017-11-01] MEDS: Insulin LISPRO* 1 UNITS UNIT SUBCUT SCH ×3 (08:07→17:11)
[2017-11-01 08:11] LABS: INR 1.35 (0.77-1.02)
[2017-11-01] MEDS: Mometasone/Formoter 200/5 MDI INH SCH ×2 (08:16→19:33)
[2017-11-01 08:46] LABS: ABS Basophils 0 10^3/ul (0-0.2); ABS Eosinophils 0.4 10^3/ul (0-0.6); ABS Lymphocytes 1.1 10^3/ul (1.0-4.8); ABS Monocytes 1.1 10^3/ul (0-0.8); ABS Neutrophils 7.7 10^3/ul (1.5-7.7); ABS Nucleated RBC 0 10^3/ul; Hematocrit 25 % (42-52); Hemoglobin 8.4 g/dl (14.0-18.0); Lymphocyte % 10.8 % (25-47); Mean Corpuscular HGB Conc 33 g/dl (31-36); Mean Corpuscular Hemoglobin 30 pg (27-31); Mean Corpuscular Volume 91 fL (80-94); Mean Platelet Volume 7 um3 (7.4-10.4); Nucleated Red Blood Cells % 0.2; Platelet Count 267 10^3/ul (150-450); Red Blood Count 2.77 10^6/ul (4.0-5.4); Red Cell Distribution Width 17 % (10.5-15); White Blood Count 10.4 10^3/ul (3.5-10.8)
[2017-11-01 08:55] LABS: EGFR Non-African American 11.8 (>60)
[2017-11-01] MEDS: Insulin GLARGINE(*) 1 UNITS UNIT SUBCUT SCH ×2 (09:00→18:01)
[2017-11-01] MEDS: Metolazone TAB* 5 MG PO SCH (09:00)
[2017-11-01] MEDS: Isosorbide Mononitrate ER TAB* 30 MG PO SCH (09:00)
[2017-11-01] MEDS: Ferrous Sulfate TAB* 325 MG PO SCH ×2 (09:00→19:50)
[2017-11-01] MEDS: Atorvastatin* 20 MG TAB PO SCH (09:00)
[2017-11-01] MEDS: Famotidine TAB* 20 MG PO SCH ×2 (09:00→19:50)
[2017-11-01] MEDS: Carvedilol TAB* 25 MG PO SCH ×2 (09:00→19:50)
[2017-11-01] MEDS: Lidocaine Patch REMOVE* 1 NOTE MISC PATCH OFF SCH (09:35)
--- NOTE | 2017-11-01 14:45 | PN ---
Subjective Date of Service: 11/01/17 Interval History: Pt with sneezing. Net negative 1.3L. dropped to 217 from 220 on admission. Down to 6L from 8L. Slight chest tightness. 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 Had BM Objective Active Medications: Acetaminophen (Tylenol Tab*) 650 mg PO Q4H PRN PRN Reason: FEVER/PAIN Last Admin: 10/31/17 09:47 Dose: 650 mg Albuterol (Ventolin Hfa Inhaler*) 1 puff INH Q4H PRN PRN Reason: SHORTNESS OF BREATH Last Admin: 10/30/17 13:45 Dose: 2 puff Atorvastatin Calcium (Lipitor*) 20 mg PO DAILY [facility] Last Admin: 11/01/17 09:00 Dose: 20 mg Bumetanide (Bumex*) 2 mg SLOW PUSH Q8H [facility] Last Admin: 11/01/17 09:34 Dose: 2 mg Carvedilol (Coreg Tab*) 25 mg PO BID [facility] Last Admin: 11/01/17 09:00 Dose: 25 mg Dextrose (D50w Syringe 50 Ml*) 12.5 gm IV PUSH .FOR FS < 60 - SS PRN PRN Reason: FS < 60 Famotidine (Pepcid Tab*) 20 mg PO BID [facility] PRN Reason: Protocol Last Admin: 11/01/17 09:00 Dose: 20 mg Ferrous Sulfate (Ferrous Sulfate Tab*) 325 mg PO BID [facility] Last Admin: 11/01/17 09:00 Dose: 325 mg Azithromycin 500 mg/ Sodium (Chloride) 250 mls @ 250 mls/hr IVPB Q24H [facility] Last Admin: 10/31/17 20:44 Dose: 250 mls/hr Ceftriaxone Sodium 1 gm/ (Sodium Chloride) 50 mls @ 200 mls/hr IVPB 2000 [facility] Last Admin: 10/31/17 19:44 Dose: 200 mls/hr Insulin Glargine (Lantus(*)) 15 units SUBCUT QPM [facility] Last Admin: 10/31/17 18:10 Dose: 15 units Insulin Glargine (Lantus(*)) 25 units SUBCUT QAM [facility] Last Admin: 11/01/17 09:00 Dose: 25 units Insulin Human Lispro (Humalog*) 0 units SUBCUT AC [facility] PRN Reason: Protocol Last Admin: 11/01/17 11:59 Dose: 9 units Isosorbide Mononitrate (Imdur Er Tab*) 30 mg PO DAILY [facility] Last Admin: 11/01/17 09:00 Dose: 30 mg Lidocaine (Lidoderm 5% Patch*) 1 patch TRANSDERM 2100 [facility] Last Admin: 10/31/17 20:44 Dose: 1 patch Metolazone (Zaroxolyn Tab*) 5 mg PO DAILY [facility] Last Admin: 11/01/17 09:00 Dose: 5 mg Mometasone Furoate/Formoterol Fumar (Dulera 200/5 Mdi*) 2 puff INH BID [facility] PRN Reason: Protocol Last Admin: 11/01/17 08:16 Dose: 2 puff Ondansetron HCl (Zofran Inj*) 4 mg IV Q6H PRN PRN Reason: NAUSEA Last Admin: 10/30/17 08:21 Dose: 4 mg Pharmacy Profile Note (Lidocaine Patch Remove*) 1 note PATCH OFF 0900 [facility] Last Admin: 11/01/17 09:35 Dose: 1 note Vital Signs - 8 hr 11/01/17 11/01/17 11/01/17 07:15 07:22 08:18 Temperature 98.6 F Pulse Rate 66 Respiratory 18 18 Rate Blood Pressure 110/43 (mmHg) O2 Sat by Pulse 100 98 Oximetry 11/01/17 11:34 Temperature 98.0 F Pulse Rate 68 Respiratory 16 Rate Blood Pressure 107/43 (mmHg) O2 Sat by Pulse 96 Oximetry Oxygen Devices in Use Now: Nasal Cannula Appearance: chronically ill appearing. Eyes: No Scleral Icterus, PERRLA Ears/Nose/Mouth/Throat: NL Teeth, Lips, Gums, Mucous Membranes Moist Respiratory: - - slightly decreased at right base. Cardiovascular: NL Sounds; No Murmurs; No JVD, RRR Abdominal: - - soft, distended, nontender Extremities: - - trace edema Neurological: Alert and Oriented x 3, NL Muscle Strength and Tone Result Diagrams: 11/01/17 07:41 11/01/17 07:41 Additional Lab and Data: Laboratory Results - last 24 hr 10/29/17 10/31/17 11/01/17 15:53 17:19 07:17 WBC RBC Hgb Hct MCV MCH MCHC RDW Plt Count MPV Neut % (Auto) Lymph % (Auto) [place] % (Auto) Eos % (Auto) Baso % (Auto) Absolute Neuts (auto) Absolute Lymphs (auto) Absolute Monos (auto) Absolute Eos (auto) Absolute Basos (auto) Absolute Nucleated RBC Nucleated RBC % Haptoglobin 329 H INR (Anticoag Therapy) Sodium Potassium Chloride Carbon Dioxide Anion Gap BUN Creatinine Est GFR ( Amer) Est GFR (Non-Af Amer) BUN/Creatinine Ratio Glucose POC Glucose (mg/dL) 113 H 130 H Calcium Magnesium Transferrin 183 L Erythropoietin 172 H 11/01/17 11/01/17 11/01/17 07:39 07:41 07:41 WBC 10.4 RBC 2.77 L Hgb 8.4 L Hct 25 L MCV 91 MCH 30 MCHC 33 RDW 17 H Plt Count 267 MPV 7 L Neut % (Auto) 74.1 Lymph % (Auto) 10.8 L [place] % (Auto) 10.6 H Eos % (Auto) 4.0 Baso % (Auto) 0.5 Absolute Neuts (auto) 7.7 Absolute Lymphs (auto) 1.1 Absolute Monos (auto) 1.1 H Absolute Eos (auto) 0.4 Absolute Basos (auto) 0 Absolute Nucleated RBC 0 Nucleated RBC % 0.2 Haptoglobin INR (Anticoag Therapy) 1.35 H Sodium 139 Potassium 4.2 Chloride 104 Carbon Dioxide 26 Anion Gap 9 BUN 76 H Creatinine 5.03 H Est GFR ( Amer) 15.2 Est GFR (Non-Af Amer) 11.8 BUN/Creatinine Ratio 15.1 Glucose 111 H POC Glucose (mg/dL) Calcium 8.3 L Magnesium 2.0 Transferrin Erythropoietin 11/01/17 11:28 WBC RBC Hgb Hct MCV MCH MCHC RDW Plt Count MPV Neut % (Auto) Lymph % (Auto) [place] % (Auto) Eos % (Auto) Baso % (Auto) Absolute Neuts (auto) Absolute Lymphs (auto) Absolute Monos (auto) Absolute Eos (auto) Absolute Basos (auto) Absolute Nucleated RBC Nucleated RBC % Haptoglobin INR (Anticoag Therapy) Sodium Potassium Chloride Carbon Dioxide Anion Gap BUN Creatinine Est GFR ( Amer) Est GFR (Non-Af Amer) BUN/Creatinine Ratio Glucose POC Glucose (mg/dL) 269 H Calcium Magnesium Transferrin Erythropoietin Microbiology and Other Data: Microbiology 10/29/17 22:37 Blood Bag Transfusion Reaction Culture - Preliminary No Growth Day 3 10/29/17 22:37 Blood Bag Transfusion Reaction Gram Stain - Final 10/29/17 15:53 Blood Venous Aerobic Blood Culture - Preliminary No Growth Day 2 10/29/17 15:53 Blood Venous Anaerobic Blood Culture - Preliminary No Growth Day 2 10/29/17 15:53 Blood Venous Aerobic Blood Culture - Preliminary No Growth Day 2 10/29/17 15:53 Blood Venous Anaerobic Blood Culture - Preliminary No Growth Day 2 10/29/17 18:34 Nasal Nasal Screen MRSA (PCR)(OLESYA) - Final Mrsa Negative 10/29/17 20:00 Urine Legionella Urinary Antigen - Final Negative Legionella 10/29/17 20:00 Urine Streptococcus pneumoniae Ag Screen - Final Negative S. pneumo Antigen 10/29/17 18:50 Nasal Influenza Types A,B Antigen (OLESYA) - Final Specimen received for Influenza A/B Molecular testing 10/29/17 17:30 Stool Stool Occult Blood (OLESYA) - Final Assess/Plan/Problems-Billing Assessment: 62 yo male H CKD Stage 4, nephrotic syndrome, CAD s/p CABG, CHF, COPD current smoker 1.5 ppd, Afib on coumadin, IDDM, incarcerated for rest of his life ( currently [facility]), recent CHF exaccerbation p/w with acute hypoxic respiratory failure, increase in weight. Likely recurrent Acute CHF in setting of chronic renal disease. - Patient Problems (1) Acute respiratory failure with hypoxia Current Visit: Yes Status: Acute Code(s): J96.01 - ACUTE RESPIRATORY FAILURE WITH HYPOXIA SNOMED Code(s): 91915560 Comment: Multifactorial 2/2 acute diastolic heart failure (most prominent), anemia and COPD with current smoking. Continue diuresis as below. continue cftx, azithromycin for now. procalcitonin was negative. (2) CHF (congestive heart failure) Current Visit: No Status: Acute Code(s): I50.9 - HEART FAILURE, UNSPECIFIED SNOMED Code(s): 94970169 Comment: - had gained back all the weight since 1/2 discharge. was discharged on bumex 2mg daily. - daily weights. Down 3lbs since admission. - BNP was back up to 916. - less volume overloaded today. - continue metolazone 5mg daily (30 minute prior to one of bumex doses) and continue bumex 2mg IV q8hr - fluid restriction 1.5L daily. - Echo 10/13/17 shows preserved systolic function, EF 60-65%. diastolic dysfunction. Renal dysfunction not helping. 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 - Talked to Dr. Bear who suggested transfer to [facility] for initiation of HD early next week. (4) Afib Current Visit: Yes Status: Acute Code(s): I48.91 - UNSPECIFIED ATRIAL FIBRILLATION SNOMED Code(s): 85355591 Comment: will restart warfarin 6mg daily. INR 1.3 had been held given transfusion requiring anemia. paroxsymal (5) IDDM (insulin dependent diabetes mellitus) Current Visit: No Status: Acute Code(s): E11.9 - TYPE 2 DIABETES MELLITUS WITHOUT COMPLICATIONS; Z79.4 - FDC (CURRENT) USE OF INSULIN SNOMED Code( s): 39907445 Comment: - BG AC and HS - Last A1c 8.2 - Continue insulin regimen with SS coverage, continue lantus 25U PM, 15U AM (6) S/P CABG x 3 Current Visit: No Status: Acute Code(s): Z95.1 - PRESENCE OF AORTOCORONARY BYPASS GRAFT SNOMED Code(s): 124220285 Comment: - CABG in 2014 - Continue Coreg 25mg BID, ASA 81mg, statin - recent lexiscan 10/13/17 was intermediate (worse at rest), cardiology consulted at time. (7) Anemia Current Visit: Yes Status: Acute Code(s): D64.9 - ANEMIA, UNSPECIFIED SNOMED Code(s): 475587080 Comment: Normocytic. Likely multifactorial from MILVIA and CKD stage IV. Iron 34 , Iron Sat 13%, Ferritin 81 Consider epogen. continue po iron for now. stool occult blood is negative last colonoscopy 2005. haptolgobin not low at admission at 329 (8) PVD (peripheral vascular disease) Current Visit: Yes Status: Acute Code(s): I73.9 - PERIPHERAL VASCULAR DISEASE, UNSPECIFIED SNOMED Code(s): 280766975 Status and Disposition: medicine inpatient. Attending: Davonte Escalera
[2017-11-01] MEDS: Warfarin TAB(*) 6 MG PO SCH (17:11)
[2017-11-01] MEDS: Lidocaine PATCH 5%* 1 PATCH TRANSDERM SCH (19:50)
[2017-11-01] MEDS: cefTRIAXone(*) 1 GM in NS 0.9% 50 ML* 50 ML IVPB SCH (19:50)
[2017-11-02] MEDS: Bumetanide IV* 0.25 MG/ML 4 ML VIAL SLOW PUSH SCH ×2 (01:30→10:02)
[2017-11-02 06:15] LABS: INR 1.25 (0.77-1.02)
[2017-11-02] MEDS: Mometasone/Formoter 200/5 MDI INH SCH ×2 (07:33→19:47)
[2017-11-02 08:39] LABS: Hematocrit 26 % (42-52); Hemoglobin 8.6 g/dl (14.0-18.0); Mean Corpuscular HGB Conc 33 g/dl (31-36); Mean Corpuscular Hemoglobin 30 pg (27-31); Mean Corpuscular Volume 92 fL (80-94); Mean Platelet Volume 7 um3 (7.4-10.4); Platelet Count 292 10^3/ul (150-450); Red Blood Count 2.88 10^6/ul (4.0-5.4); Red Cell Distribution Width 17 % (10.5-15); White Blood Count 11.2 10^3/ul (3.5-10.8)
[2017-11-02 08:50] LABS: EGFR Non-African American 11.6 (>60)
[2017-11-02] MEDS: Carvedilol TAB* 25 MG PO SCH ×2 (09:18→20:45)
[2017-11-02] MEDS: Atorvastatin* 20 MG TAB PO SCH (09:18)
[2017-11-02] MEDS: Metolazone TAB* 5 MG PO SCH (09:19)
[2017-11-02] MEDS: Isosorbide Mononitrate ER TAB* 30 MG PO SCH (09:19)
[2017-11-02] MEDS: Ferrous Sulfate TAB* 325 MG PO SCH ×2 (09:19→20:46)
[2017-11-02] MEDS: Lidocaine Patch REMOVE* 1 NOTE MISC PATCH OFF SCH (09:19)
[2017-11-02] MEDS: Insulin GLARGINE(*) 1 UNITS UNIT SUBCUT SCH ×2 (09:19→18:15)
[2017-11-02] MEDS: Famotidine TAB* 20 MG PO SCH (09:19)
[2017-11-02] MEDS: Insulin LISPRO* 1 UNITS UNIT SUBCUT SCH ×3 (09:23→18:14)
--- NOTE | 2017-11-02 14:48 | PN ---
Subjective Date of Service: 11/02/17 Interval History: Down to 211lbs. Net negative 1.7L. Oxygen requirements dropping (4L midafternoon but also Sat'ing mid to high 90s). LDR NURSE 5.1 form 5.03. Wanting decaf coffee. shortness of breath with exertion, no wheezing. clear sputum cough. Intermittent AFib Objective Active Medications: Acetaminophen (Tylenol Tab*) 650 mg PO Q4H PRN PRN Reason: FEVER/PAIN Last Admin: 10/31/17 09:47 Dose: 650 mg Albuterol (Ventolin Hfa Inhaler*) 1 puff INH Q4H PRN PRN Reason: SHORTNESS OF BREATH Last Admin: 10/30/17 13:45 Dose: 2 puff Atorvastatin Calcium (Lipitor*) 20 mg PO DAILY [facility] Last Admin: 11/02/17 09:18 Dose: 20 mg Bumetanide (Bumex Tab*) 2 mg PO BID [facility] Carvedilol (Coreg Tab*) 25 mg PO BID [facility] Last Admin: 11/02/17 09:18 Dose: 25 mg Dextrose (D50w Syringe 50 Ml*) 12.5 gm IV PUSH .FOR FS < 60 - SS PRN PRN Reason: FS < 60 Famotidine (Pepcid Susp*) 10 mg PO BID [facility] PRN Reason: Protocol Ferrous Sulfate (Ferrous Sulfate Tab*) 325 mg PO BID [facility] Last Admin: 11/02/17 09:19 Dose: 325 mg Ceftriaxone Sodium 1 gm/ (Sodium Chloride) 50 mls @ 200 mls/hr IVPB 2000 [facility] Last Admin: 11/01/17 19:50 Dose: 200 mls/hr Insulin Glargine (Lantus(*)) 15 units SUBCUT QPM [facility] Last Admin: 11/01/17 18:01 Dose: 15 units Insulin Glargine (Lantus(*)) 25 units SUBCUT QAM [facility] Last Admin: 11/02/17 09:19 Dose: 25 units Insulin Human Lispro (Humalog*) 0 units SUBCUT AC [facility] PRN Reason: Protocol Last Admin: 11/02/17 12:33 Dose: 9 units Isosorbide Mononitrate (Imdur Er Tab*) 30 mg PO DAILY [facility] Last Admin: 11/02/17 09:19 Dose: 30 mg Lidocaine (Lidoderm 5% Patch*) 1 patch TRANSDERM 2100 [facility] Last Admin: 11/01/17 19:50 Dose: 1 patch Metolazone (Zaroxolyn Tab*) 5 mg PO DAILY [facility] Last Admin: 11/02/17 09:19 Dose: 5 mg Mometasone Furoate/Formoterol Fumar (Dulera 200/5 Mdi*) 2 puff INH BID [facility] PRN Reason: Protocol Last Admin: 11/02/17 07:33 Dose: 2 puff Ondansetron HCl (Zofran Inj*) 4 mg IV Q6H PRN PRN Reason: NAUSEA Last Admin: 10/30/17 08:21 Dose: 4 mg Pharmacy Profile Note (Lidocaine Patch Remove*) 1 note PATCH OFF 0900 [facility] Last Admin: 11/02/17 09:19 Dose: 1 note Warfarin Sodium (Coumadin Tab(*)) 6 mg PO DAILY@1700 [facility] PRN Reason: Protocol Last Admin: 11/01/17 17:11 Dose: 6 mg Vital Signs - 8 hr 11/02/17 11/02/17 11/02/17 07:48 08:00 08:11 Temperature 98.0 F Pulse Rate 68 Respiratory 22 20 Rate Blood Pressure 119/58 (mmHg) O2 Sat by Pulse 98 97 Oximetry 11/02/17 11:46 Temperature 97.7 F Pulse Rate 69 Respiratory 20 Rate Blood Pressure 125/60 (mmHg) O2 Sat by Pulse 100 Oximetry Oxygen Devices in Use Now: Nasal Cannula Appearance: NAD Eyes: No Scleral Icterus, PERRLA Ears/Nose/Mouth/Throat: NL Teeth, Lips, Gums Respiratory: - - decreased bases, no rales or rhonchi. Cardiovascular: - - IVET 2/6. LUSB. RRR. JVD to midneck with positive HJR Abdominal: - - soft, distended, non tender. Extremities: No Edema, No Clubbing, Cyanosis Skin: No Rash or Ulcers, No Nodules or Sclerosis Neurological: Alert and Oriented x 3, NL Muscle Strength and Tone Nutrition: Taking PO's Result Diagrams: 11/02/17 05:36 11/02/17 05:36 Additional Lab and Data: Laboratory Results - last 24 hr 11/01/17 11/02/17 11/02/17 16:40 05:36 05:36 WBC RBC Hgb Hct MCV MCH MCHC RDW Plt Count MPV INR (Anticoag Therapy) 1.25 H Sodium 138 Potassium 3.9 Chloride 100 L Carbon Dioxide 29 Anion Gap 9 BUN 82 H Creatinine 5.10 H Est GFR ( Amer) 15.0 Est GFR (Non-Af Amer) 11.6 BUN/Creatinine Ratio 16.1 Glucose 108 H POC Glucose (mg/dL) 251 H Calcium 8.6 11/02/17 11/02/17 11/02/17 05:36 07:32 11:39 WBC 11.2 H RBC 2.88 L Hgb 8.6 L Hct 26 L MCV 92 MCH 30 MCHC 33 RDW 17 H Plt Count 292 MPV 7 L INR (Anticoag Therapy) Sodium Potassium Chloride Carbon Dioxide Anion Gap BUN Creatinine Est GFR ( Amer) Est GFR (Non-Af Amer) BUN/Creatinine Ratio Glucose POC Glucose (mg/dL) 109 H 273 H Calcium Microbiology and Other Data: Microbiology 10/29/17 22:37 Blood Bag Transfusion Reaction Culture - Preliminary No Growth Day 4 10/29/17 22:37 Blood Bag Transfusion Reaction Gram Stain - Final 10/29/17 15:53 Blood Venous Aerobic Blood Culture - Preliminary No Growth Day 3 10/29/17 15:53 Blood Venous Anaerobic Blood Culture - Preliminary No Growth Day 3 10/29/17 15:53 Blood Venous Aerobic Blood Culture - Preliminary No Growth Day 3 10/29/17 15:53 Blood Venous Anaerobic Blood Culture - Preliminary No Growth Day 3 10/29/17 18:34 Nasal Nasal Screen MRSA (PCR)(OLESAY) - Final Mrsa Negative 10/29/17 20:00 Urine Legionella Urinary Antigen - Final Negative Legionella 10/29/17 20:00 Urine Streptococcus pneumoniae Ag Screen - Final Negative S. pneumo Antigen 10/29/17 18:50 Nasal Influenza Types A,B Antigen (OLESYA) - Final Specimen received for Influenza A/B Molecular testing 10/29/17 17:30 Stool Stool Occult Blood (OLESYA) - Final Assess/Plan/Problems-Billing Assessment: 62 yo male H CKD Stage 4, nephrotic syndrome, CAD s/p CABG, CHF, COPD current smoker 1.5 ppd, Afib on coumadin, IDDM, incarcerated for rest of his life ( currently [facility]), recent CHF exaccerbation p/w with acute hypoxic respiratory failure, increase in weight. Likely recurrent Acute CHF in setting of chronic and slowly progressive renal disease. - Patient Problems (1) Acute respiratory failure with hypoxia Current Visit: Yes Status: Acute Code(s): J96.01 - ACUTE RESPIRATORY FAILURE WITH HYPOXIA SNOMED Code(s): 88621947 Comment: Multifactorial 2/2 acute diastolic heart failure (most prominent), anemia and COPD with current smoking. Continue diuresis as below. continue cftx, stop azithromycin procalcitonin was negative. (2) CHF (congestive heart failure) Current Visit: No Status: Acute Code(s): I50.9 - HEART FAILURE, UNSPECIFIED SNOMED Code(s): 55597092 Comment: - had gained back all the weight since 10/14 discharge. was discharged on bumex 2mg daily. - daily weights. Down to 211 since admission. - BNP 916 on admission. - continue metolazone 5mg daily (30 minute prior to one of bumex doses) and decrease to bumex 2mg po BID - fluid restriction 1.5L daily. - Echo 10/13/17 shows preserved systolic function, EF 60-65%. diastolic dysfunction. Renal dysfunction not helping. (3) CKD (chronic kidney disease) stage 4, GFR 15-29 ml/min Current Visit: No Status: Acute Code(s): N18.4 - CHRONIC KIDNEY DISEASE, STAGE 4 (SEVERE) SNOMED Code(s): 675054275 Comment: - LDR NURSE slowly rising 4.5->5.1. - Talked to Dr. Bear who suggested transfer to [facility] for initiation of HD early next week. (4) Afib Current Visit: Yes Status: Acute Code(s): I48.91 - UNSPECIFIED ATRIAL FIBRILLATION SNOMED Code(s): 02910522 Comment: contine warfarin 6mg daily. INR 1.25. had been held given transfusion requiring anemia. paroxsymal Mg>2, K>4 (5) IDDM (insulin dependent diabetes mellitus) Current Visit: No Status: Acute Code(s): E11.9 - TYPE 2 DIABETES MELLITUS WITHOUT COMPLICATIONS; Z79.4 - ASSISTED (CURRENT) USE OF INSULIN SNOMED Code( s): 03819959 Comment: - BG AC and HS - Last A1c 8.2 - Continue insulin regimen with SS coverage, continue lantus 25U PM, 15U AM (6) S/P CABG x 3 Current Visit: No Status: Acute Code(s): Z95.1 - PRESENCE OF AORTOCORONARY BYPASS GRAFT SNOMED Code(s): 616526057 Comment: - CABG in 2014 - Continue Coreg 25mg BID, ASA 81mg, statin - recent lexiscan 10/13/17 was intermediate (worse at rest), cardiology consulted at time. (7) Anemia Current Visit: Yes Status: Acute Code(s): D64.9 - ANEMIA, UNSPECIFIED SNOMED Code(s): 989348844 Comment: Normocytic. Likely multifactorial from MILVIA and CKD stage IV. Iron 34 , Iron Sat 13%, Ferritin 81 Consider epogen once begins (likely plan at [facility]) HD. continue po iron for now. stool occult blood is negative last colonoscopy 2005. haptolgobin not low at admission at 329 (8) PVD (peripheral vascular disease) Current Visit: Yes Status: Acute Code(s): I73.9 - PERIPHERAL VASCULAR DISEASE, UNSPECIFIED SNOMED Code(s): 608421286 Status and Disposition: medicine inpatient. Likely attempt transfer to [facility] 11/03. Attending: Davonte Escalera
[2017-11-02] MEDS: Bumetanide TAB* 2 MG PO SCH ×2 (18:12→20:46)
[2017-11-02] MEDS: Warfarin TAB(*) 6 MG PO SCH (18:12)
[2017-11-02] MEDS: cefTRIAXone(*) 1 GM in NS 0.9% 50 ML* 50 ML IVPB SCH (20:46)
[2017-11-02] MEDS: Lidocaine PATCH 5%* 1 PATCH TRANSDERM SCH (20:46)
[2017-11-02] MEDS: Famotidine SUSP* 40 MG/5 ML ORAL.SYRIN PO SCH (20:46)
[2017-11-02] MEDS: Benzonatate CAP* 100 MG PO SCH (21:05)
[2017-11-02] MEDS: guaiFENesin LIQ* 100 MG/5 ML UDC PO PRN (22:41)
[2017-11-03 04:56] LABS: ABS Basophils 0.1 10^3/ul (0-0.2); ABS Eosinophils 0.5 10^3/ul (0-0.6); ABS Lymphocytes 0.6 10^3/ul (1.0-4.8); ABS Neutrophils 8.2 10^3/ul (1.5-7.7); ABS Nucleated RBC 0 10^3/ul; Eosinophil % 4.5 % (0-6); Hematocrit 28 % (42-52); Hemoglobin 9.4 g/dl (14.0-18.0); Lymphocyte % 5.4 % (25-47); Mean Corpuscular HGB Conc 34 g/dl (31-36); Mean Corpuscular Hemoglobin 31 pg (27-31); Mean Corpuscular Volume 90 fL (80-94); Mean Platelet Volume 7 um3 (7.4-10.4); Nucleated Red Blood Cells % 0; Platelet Count 310 10^3/ul (150-450); Red Blood Count 3.08 10^6/ul (4.0-5.4); Red Cell Distribution Width 17 % (10.5-15); White Blood Count 10.3 10^3/ul (3.5-10.8)
[2017-11-03 05:06] LABS: INR 1.32 (0.77-1.02)
[2017-11-03] MEDS: guaiFENesin LIQ* 100 MG/5 ML UDC PO PRN ×3 (05:29→21:32)
[2017-11-03] MEDS: Mometasone/Formoter 200/5 MDI INH SCH ×2 (08:29→19:53)
[2017-11-03] MEDS: Insulin LISPRO* 1 UNITS UNIT SUBCUT SCH ×3 (10:26→17:02)
[2017-11-03] MEDS: Isosorbide Mononitrate ER TAB* 30 MG PO SCH (10:36)
[2017-11-03] MEDS: Ferrous Sulfate TAB* 325 MG PO SCH ×2 (10:36→21:04)
[2017-11-03] MEDS: Atorvastatin* 20 MG TAB PO SCH (10:36)
[2017-11-03] MEDS: Carvedilol TAB* 25 MG PO SCH ×2 (10:36→21:32)
[2017-11-03] MEDS: Benzonatate CAP* 100 MG PO SCH ×2 (10:36→21:03)
[2017-11-03] MEDS: Famotidine SUSP* 40 MG/5 ML ORAL.SYRIN PO SCH ×2 (10:36→21:06)
[2017-11-03] MEDS: Insulin GLARGINE(*) 1 UNITS UNIT SUBCUT SCH ×2 (10:37→17:02)
[2017-11-03] MEDS: Lidocaine Patch REMOVE* 1 NOTE MISC PATCH OFF SCH (13:50)
[2017-11-03] MEDS: Bumetanide TAB* 2 MG PO SCH (13:50)
[2017-11-03] MEDS: Warfarin TAB(*) 6 MG PO SCH (17:03)
--- NOTE | 2017-11-03 17:44 | PN ---
Subjective Date of Service: 11/03/17 Interval History: Complaint of cough and sputum culture obtained overnight. On 2L Sat'ing high 90s. SEED SPECIALIST from 5.1 to 5.8. Transfer attempted to [facility]. Objective Active Medications: Acetaminophen (Tylenol Tab*) 650 mg PO Q4H PRN PRN Reason: FEVER/PAIN Last Admin: 10/31/17 09:47 Dose: 650 mg Albuterol (Ventolin Hfa Inhaler*) 1 puff INH Q4H PRN PRN Reason: SHORTNESS OF BREATH Last Admin: 10/30/17 13:45 Dose: 2 puff Atorvastatin Calcium (Lipitor*) 20 mg PO DAILY [facility] Last Admin: 11/03/17 10:36 Dose: 20 mg Benzonatate (Tessalon Cap*) 100 mg PO Q12H [facility] Last Admin: 11/03/17 10:36 Dose: 100 mg Bumetanide (Bumex Tab*) 2 mg PO DAILY [facility] Last Admin: 11/03/17 13:50 Dose: 2 mg Carvedilol (Coreg Tab*) 25 mg PO BID [facility] Last Admin: 11/03/17 10:36 Dose: 25 mg Dextrose (D50w Syringe 50 Ml*) 12.5 gm IV PUSH .FOR FS < 60 - SS PRN PRN Reason: FS < 60 Famotidine (Pepcid Susp*) 10 mg PO BID [facility] PRN Reason: Protocol Last Admin: 11/03/17 10:36 Dose: 10 mg Ferrous Sulfate (Ferrous Sulfate Tab*) 325 mg PO BID [facility] Last Admin: 11/03/17 10:36 Dose: 325 mg Guaifenesin (Robitussin*) 5 ml PO Q4H PRN PRN Reason: COUGH Last Admin: 11/03/17 17:03 Dose: 5 ml Ceftriaxone Sodium 1 gm/ (Sodium Chloride) 50 mls @ 200 mls/hr IVPB 2000 [facility] Last Admin: 11/02/17 20:46 Dose: 200 mls/hr Insulin Glargine (Lantus(*)) 15 units SUBCUT QPM [facility] Last Admin: 11/03/17 17:02 Dose: 15 units Insulin Glargine (Lantus(*)) 25 units SUBCUT QAM [facility] Last Admin: 11/03/17 10:37 Dose: 25 units Insulin Human Lispro (Humalog*) 0 units SUBCUT AC [facility] PRN Reason: Protocol Last Admin: 11/03/17 17:02 Dose: 9 units Isosorbide Mononitrate (Imdur Er Tab*) 30 mg PO DAILY [facility] Last Admin: 11/03/17 10:36 Dose: 30 mg Lidocaine (Lidoderm 5% Patch*) 1 patch TRANSDERM 2100 [facility] Last Admin: 11/02/17 20:46 Dose: 1 patch Mometasone Furoate/Formoterol Fumar (Dulera 200/5 Mdi*) 2 puff INH BID [facility] PRN Reason: Protocol Last Admin: 11/03/17 08:29 Dose: 2 puff Ondansetron HCl (Zofran Inj*) 4 mg IV Q6H PRN PRN Reason: NAUSEA Last Admin: 10/30/17 08:21 Dose: 4 mg Pharmacy Profile Note (Lidocaine Patch Remove*) 1 note PATCH OFF 0900 [facility] Last Admin: 11/03/17 13:50 Dose: 1 note Warfarin Sodium (Coumadin Tab(*)) 6 mg PO DAILY@1700 [facility] PRN Reason: Protocol Last Admin: 11/03/17 17:03 Dose: 6 mg Vital Signs - 8 hr 11/03/17 11/03/17 11/03/17 12:06 12:12 15:49 Temperature 99.2 F Pulse Rate 78 64 75 Respiratory 18 16 16 Rate Blood Pressure 105/49 103/54 (mmHg) O2 Sat by Pulse 98 95 100 Oximetry 11/03/17 16:30 Temperature 98.2 F Pulse Rate Respiratory Rate Blood Pressure (mmHg) O2 Sat by Pulse Oximetry Oxygen Devices in Use Now: Nasal Cannula Appearance: NAD Eyes: No Scleral Icterus, PERRLA Ears/Nose/Mouth/Throat: NL Teeth, Lips, Gums, Mucous Membranes Moist Neck: NL Appearance and Movements; NL JVP, Trachea Midline Respiratory: Symmetrical Chest Expansion and Respiratory Effort, - - no wheezing , rales or rhonchi. Cardiovascular: NL Sounds; No Murmurs; No JVD, RRR Abdominal: - - soft, distended, nontender. no rebound or guarding. Extremities: No Edema, No Clubbing, Cyanosis Skin: No Rash or Ulcers, No Nodules or Sclerosis Neurological: Alert and Oriented x 3, NL Sensation, NL Muscle Strength and Tone Result Diagrams: 11/03/17 04:35 11/03/17 04:35 Additional Lab and Data: Laboratory Results - last 24 hr 10/29/17 11/03/17 11/03/17 15:53 04:35 04:35 WBC 10.3 RBC 3.08 L Hgb 9.4 L Hct 28 L MCV 90 MCH 31 MCHC 34 RDW 17 H Plt Count 310 MPV 7 L Neut % (Auto) 79.3 Lymph % (Auto) 5.4 L Parke % (Auto) 10.1 H Eos % (Auto) 4.5 Baso % (Auto) 0.7 Absolute Neuts (auto) 8.2 H Absolute Lymphs (auto) 0.6 L Absolute Monos (auto) 1.0 H Absolute Eos (auto) 0.5 Absolute Basos (auto) 0.1 Absolute Nucleated RBC 0 Nucleated RBC % 0 INR (Anticoag Therapy) 1.32 H Sodium Potassium Chloride Carbon Dioxide Anion Gap BUN Creatinine Est GFR ( Amer) Est GFR (Non-Af Amer) BUN/Creatinine Ratio Glucose POC Glucose (mg/dL) Calcium Magnesium Methylmalonic Acid 0.36 11/03/17 11/03/17 11/03/17 04:35 07:37 12:39 WBC RBC Hgb Hct MCV MCH MCHC RDW Plt Count MPV Neut % (Auto) Lymph % (Auto) [place]ke % (Auto) Eos % (Auto) Baso % (Auto) Absolute Neuts (auto) Absolute Lymphs (auto) Absolute Monos (auto) Absolute Eos (auto) Absolute Basos (auto) Absolute Nucleated RBC Nucleated RBC % INR (Anticoag Therapy) Sodium 136 Potassium 3.9 Chloride 97 L Carbon Dioxide 29 Anion Gap 10 BUN 94 H Creatinine 5.79 H Est GFR ( Amer) 12.9 Est GFR (Non-Af Amer) 10.0 BUN/Creatinine Ratio 16.2 Glucose 135 H POC Glucose (mg/dL) 89 142 H Calcium 8.9 Magnesium 2.0 Methylmalonic Acid 11/03/17 16:51 WBC RBC Hgb Hct MCV MCH MCHC RDW Plt Count MPV Neut % (Auto) Lymph % (Auto) [place] % (Auto) Eos % (Auto) Baso % (Auto) Absolute Neuts (auto) Absolute Lymphs (auto) Absolute Monos (auto) Absolute Eos (auto) Absolute Basos (auto) Absolute Nucleated RBC Nucleated RBC % INR (Anticoag Therapy) Sodium Potassium Chloride Carbon Dioxide Anion Gap BUN Creatinine Est GFR ( Amer) Est GFR (Non-Af Amer) BUN/Creatinine Ratio Glucose POC Glucose (mg/dL) 254 H Calcium Magnesium Methylmalonic Acid Microbiology and Other Data: Laboratory Results - last 24 hr 10/29/17 11/03/17 11/03/17 15:53 04:35 04:35 WBC 10.3 RBC 3.08 L Hgb 9.4 L Hct 28 L MCV 90 MCH 31 MCHC 34 RDW 17 H Plt Count 310 MPV 7 L Neut % (Auto) 79.3 Lymph % (Auto) 5.4 L [place] % (Auto) 10.1 H Eos % (Auto) 4.5 Baso % (Auto) 0.7 Absolute Neuts (auto) 8.2 H Absolute Lymphs (auto) 0.6 L Absolute Monos (auto) 1.0 H Absolute Eos (auto) 0.5 Absolute Basos (auto) 0.1 Absolute Nucleated RBC 0 Nucleated RBC % 0 INR (Anticoag Therapy) 1.32 H Sodium Potassium Chloride Carbon Dioxide Anion Gap BUN Creatinine Est GFR ( Amer) Est GFR (Non-Af Amer) BUN/Creatinine Ratio Glucose POC Glucose (mg/dL) Calcium Magnesium Methylmalonic Acid 0.36 11/03/17 11/03/17 11/03/17 04:35 07:37 12:39 WBC RBC Hgb Hct MCV MCH MCHC RDW Plt Count MPV Neut % (Auto) Lymph % (Auto) [place]ke % (Auto) Eos % (Auto) Baso % (Auto) Absolute Neuts (auto) Absolute Lymphs (auto) Absolute Monos (auto) Absolute Eos (auto) Absolute Basos (auto) Absolute Nucleated RBC Nucleated RBC % INR (Anticoag Therapy) Sodium 136 Potassium 3.9 Chloride 97 L Carbon Dioxide 29 Anion Gap 10 BUN 94 H Creatinine 5.79 H Est GFR ( Amer) 12.9 Est GFR (Non-Af Amer) 10.0 BUN/Creatinine Ratio 16.2 Glucose 135 H POC Glucose (mg/dL) 89 142 H Calcium 8.9 Magnesium 2.0 Methylmalonic Acid 11/03/17 16:51 WBC RBC Hgb Hct MCV MCH MCHC RDW Plt Count MPV Neut % (Auto) Lymph % (Auto) [place]ke % (Auto) Eos % (Auto) Baso % (Auto) Absolute Neuts (auto) Absolute Lymphs (auto) Absolute Monos (auto) Absolute Eos (auto) Absolute Basos (auto) Absolute Nucleated RBC Nucleated RBC % INR (Anticoag Therapy) Sodium Potassium Chloride Carbon Dioxide Anion Gap BUN Creatinine Est GFR ( Amer) Est GFR (Non-Af Amer) BUN/Creatinine Ratio Glucose POC Glucose (mg/dL) 254 H Calcium Magnesium Methylmalonic Acid Assess/Plan/Problems-Billing Assessment: 62 yo male PMH CKD Stage 4, CAD s/p CABG, diastolic CHF, COPD, current smoker 1.5 ppd, Afib on coumadin, IDDM, serving lifetime long term term(currently [facility]), recent CHF exacerbation p/w with acute hypoxic respiratory failure, increase in weight. Likely recurrent Acute CHF in setting of chronic and slowly progressive renal disease. Down to 208lbs from 220. Likely approaching ESRD, SEED SPECIALIST up to 5.8 with stepwise march up last 4 weeks. - Patient Problems (1) Acute respiratory failure with hypoxia Current Visit: Yes Status: Acute Code(s): J96.01 - ACUTE RESPIRATORY FAILURE WITH HYPOXIA SNOMED Code(s): 29636348 Comment: Multifactorial 2/2 acute diastolic heart failure (most prominent), anemia and COPD with current smoking. diuresis plan as below. continue cftx, s/p azithromycin procalcitonin was negative. (2) CHF (congestive heart failure) Current Visit: No Status: Acute Code(s): I50.9 - HEART FAILURE, UNSPECIFIED SNOMED Code(s): 52126919 Comment: - had gained back all the weight since 10/14 discharge. was discharged on bumex 2mg daily. - daily weights. Down to 208 from 220 upon admission. - BNP 916 on admission. - 1.5L Fluid restriction - continue metolazone 5mg daily (30 minute prior to one of bumex doses) and decrease to bumex 2mg po BID - fluid restriction 1.5L daily. - Echo 10/13/17 shows preserved systolic function, EF 60-65%. diastolic dysfunction. Renal dysfunction not helping. (3) CKD (chronic kidney disease) stage 4, GFR 15-29 ml/min Current Visit: No Status: Acute Code(s): N18.4 - CHRONIC KIDNEY DISEASE, STAGE 4 (SEVERE) SNOMED Code(s): 035919175 Comment: - SEED SPECIALIST slowly rising 4.5->5.1. -> 5.8. - Transfer to [facility] was not accepted. - Coordinating with Perlita Herrera [facility] and Barbie Hodgson RN at [facility] to arrange [facility] Nephrology follow-up given likely need for initiation of HD in time frame of week or two. (4) Afib Current Visit: Yes Status: Acute Code(s): I48.91 - UNSPECIFIED ATRIAL FIBRILLATION SNOMED Code(s): 22103968 Comment: contine warfarin 6mg daily. INR 1.3. had been held given transfusion requiring anemia. paroxsymal Mg>2, K>4 (5) IDDM (insulin dependent diabetes mellitus) Current Visit: No Status: Acute Code(s): E11.9 - TYPE 2 DIABETES MELLITUS WITHOUT COMPLICATIONS; Z79.4 - HALFWAY (CURRENT) USE OF INSULIN SNOMED Code( s): 15971111 Comment: - BG AC and HS - Last A1c 8.2 - Continue insulin regimen with SS coverage, continue lantus 25U PM, 15U AM (6) S/P CABG x 3 Current Visit: No Status: Acute Code(s): Z95.1 - PRESENCE OF AORTOCORONARY BYPASS GRAFT SNOMED Code(s): 114643709 Comment: - CABG in 2014 - Continue Coreg 25mg BID, ASA 81mg, statin - recent lexiscan 10/13/17 was intermediate (worse at rest), cardiology consulted at time. (7) Anemia Current Visit: Yes Status: Acute Code(s): D64.9 - ANEMIA, UNSPECIFIED SNOMED Code(s): 976338853 Comment: Normocytic. Likely multifactorial from MILIVA and CKD stage IV. Iron 34 , Iron Sat 13%, Ferritin 81 Improving trend. Recommend epogen once begins HD. continue po iron for now. stool occult blood is negative last colonoscopy 2005. haptolgobin not low at admission at 329 (8) PVD (peripheral vascular disease) Current Visit: Yes Status: Acute Code(s): I73.9 - PERIPHERAL VASCULAR DISEASE, UNSPECIFIED SNOMED Code(s): 302055842 Status and Disposition: medicine inpatient. Discharge as soon as nephrology services can be coordinated with [address] [place], [place] [address]al facilities. Attending: Davonte Escalera
[2017-11-03] MEDS ORDERED: Carvedilol TAB* 6.25 MG PO ONE (20:48)
[2017-11-03] MEDS: Acetaminophen TAB* 325 MG PO PRN (21:05)
[2017-11-03] MEDS: Lidocaine PATCH 5%* 1 PATCH TRANSDERM SCH (21:07)
[2017-11-03] MEDS: cefTRIAXone(*) 1 GM in NS 0.9% 50 ML* 50 ML IVPB SCH (21:10)
[2017-11-04 06:31] LABS: ABS Basophils 0 10^3/ul (0-0.2); ABS Eosinophils 0.5 10^3/ul (0-0.6); ABS Lymphocytes 0.5 10^3/ul (1.0-4.8); ABS Monocytes 1.4 10^3/ul (0-0.8); ABS Neutrophils 4.5 10^3/ul (1.5-7.7); ABS Nucleated RBC 0 10^3/ul; Eosinophil % 6.6 % (0-6); Hematocrit 29 % (42-52); Hemoglobin 9.6 g/dl (14.0-18.0); Lymphocyte % 7.4 % (25-47); Mean Corpuscular HGB Conc 33 g/dl (31-36); Mean Corpuscular Hemoglobin 30 pg (27-31); Mean Corpuscular Volume 90 fL (80-94); Mean Platelet Volume 7 um3 (7.4-10.4); Nucleated Red Blood Cells % 0.1; Platelet Count 309 10^3/ul (150-450); Red Blood Count 3.18 10^6/ul (4.0-5.4); Red Cell Distribution Width 17 % (10.5-15); White Blood Count 6.9 10^3/ul (3.5-10.8)
[2017-11-04 06:46] LABS: EGFR Non-African American 9.8 (>60)
[2017-11-04] MEDS: Mometasone/Formoter 200/5 MDI INH SCH ×2 (08:27→19:31)
[2017-11-04] MEDS: Insulin LISPRO* 1 UNITS UNIT SUBCUT SCH ×3 (09:11→18:40)
[2017-11-04] MEDS: Insulin GLARGINE(*) 1 UNITS UNIT SUBCUT SCH ×2 (09:12→19:05)
[2017-11-04] MEDS: guaiFENesin LIQ* 100 MG/5 ML UDC PO PRN ×2 (09:15→13:59)
[2017-11-04] MEDS: Carvedilol TAB* 25 MG PO SCH ×2 (09:15→21:22)
[2017-11-04] MEDS: Atorvastatin* 20 MG TAB PO SCH (09:15)
[2017-11-04] MEDS: Ferrous Sulfate TAB* 325 MG PO SCH (09:15)
[2017-11-04] MEDS: Isosorbide Mononitrate ER TAB* 30 MG PO SCH (09:16)
[2017-11-04] MEDS: Benzonatate CAP* 100 MG PO SCH ×2 (09:16→21:21)
[2017-11-04] MEDS: Bumetanide TAB* 2 MG PO SCH (09:16)
[2017-11-04] MEDS: Lidocaine Patch REMOVE* 1 NOTE MISC PATCH OFF SCH (09:16)
[2017-11-04] MEDS: Iron Sucrose* 200 MG in NS 0.9% 100 ML* 100 ML IVPB SCH (12:07)
[2017-11-04] MEDS: Famotidine SUSP* 40 MG/5 ML ORAL.SYRIN PO SCH ×2 (12:09→21:23)
[2017-11-04] MEDS: Acetaminophen TAB* 325 MG PO PRN ×2 (13:59→23:40)
--- NOTE | 2017-11-04 16:57 | PN ---
Subjective Date of Service: 11/04/17 Interval History: Off supplemental oxygen. Dr. Bear saw patient today. Pt with PARRY upon evaluation while tail end of transfusion of his IV Venofer. Upper congestion. Denies chest tightness. TRANSIT MECHANIC and BUN creeping up still 5.9 and 96. Objective Active Medications: Acetaminophen (Tylenol Tab*) 650 mg PO Q4H PRN PRN Reason: FEVER/PAIN Last Admin: 11/04/17 13:59 Dose: 650 mg Albuterol (Ventolin Hfa Inhaler*) 1 puff INH Q4H PRN PRN Reason: SHORTNESS OF BREATH Last Admin: 10/30/17 13:45 Dose: 2 puff Atorvastatin Calcium (Lipitor*) 20 mg PO DAILY [facility] Last Admin: 11/04/17 09:15 Dose: 20 mg Benzonatate (Tessalon Cap*) 100 mg PO Q12H [facility] Last Admin: 11/04/17 09:16 Dose: 100 mg Bumetanide (Bumex Tab*) 2 mg PO DAILY [facility] Last Admin: 11/04/17 09:16 Dose: 2 mg Carvedilol (Coreg Tab*) 25 mg PO BID [facility] Last Admin: 11/04/17 09:15 Dose: 25 mg Dextrose (D50w Syringe 50 Ml*) 12.5 gm IV PUSH .FOR FS < 60 - SS PRN PRN Reason: FS < 60 Famotidine (Pepcid Susp*) 10 mg PO BID [facility] PRN Reason: Protocol Last Admin: 11/04/17 12:09 Dose: 10 mg Ferrous Sulfate (Ferrous Sulfate Tab*) 325 mg PO BID [facility] Guaifenesin (Robitussin*) 5 ml PO Q4H PRN PRN Reason: COUGH Last Admin: 11/04/17 13:59 Dose: 5 ml Ceftriaxone Sodium 1 gm/ (Sodium Chloride) 50 mls @ 200 mls/hr IVPB 2000 [facility] Last Admin: 11/03/17 21:10 Dose: 200 mls/hr Iron Sucrose 200 mg/ Sodium (Chloride) 110 mls @ 110 mls/hr IVPB DAILY [facility] Stop: 11/09/17 11:59 Last Admin: 11/04/17 12:07 Dose: 110 mls/hr Insulin Glargine (Lantus(*)) 15 units SUBCUT QPM [facility] Last Admin: 11/03/17 17:02 Dose: 15 units Insulin Glargine (Lantus(*)) 25 units SUBCUT QAM [facility] Last Admin: 11/04/17 09:12 Dose: 25 units Insulin Human Lispro (Humalog*) 0 units SUBCUT AC [facility] PRN Reason: Protocol Last Admin: 11/04/17 11:59 Dose: 3 units Isosorbide Mononitrate (Imdur Er Tab*) 30 mg PO DAILY [facility] Last Admin: 11/04/17 09:16 Dose: 30 mg Lidocaine (Lidoderm 5% Patch*) 1 patch TRANSDERM 2100 [facility] Last Admin: 11/03/17 21:07 Dose: 1 patch Mometasone Furoate/Formoterol Fumar (Dulera 200/5 Mdi*) 2 puff INH BID [facility] PRN Reason: Protocol Last Admin: 11/04/17 08:27 Dose: 2 puff Ondansetron HCl (Zofran Inj*) 4 mg IV Q6H PRN PRN Reason: NAUSEA Last Admin: 10/30/17 08:21 Dose: 4 mg Pharmacy Profile Note (Lidocaine Patch Remove*) 1 note PATCH OFF 0900 [facility] Last Admin: 11/04/17 09:16 Dose: 1 note Warfarin Sodium (Coumadin Tab(*)) 6 mg PO DAILY@1700 [facility] PRN Reason: Protocol Last Admin: 11/03/17 17:03 Dose: 6 mg Oxygen Devices in Use Now: None Appearance: NAD, sitting side of bed. Eyes: No Scleral Icterus, PERRLA Ears/Nose/Mouth/Throat: NL Teeth, Lips, Gums, Mucous Membranes Moist Neck: NL Appearance and Movements; NL JVP, Trachea Midline Respiratory: - - no wheezing, rales or rhonchi. slightly decreased right base. Cardiovascular: NL Sounds; No Murmurs; No JVD, RRR Abdominal: NL Sounds; No Tenderness; No Distention Extremities: No Edema, No Clubbing, Cyanosis Skin: No Rash or Ulcers, No Nodules or Sclerosis Neurological: Alert and Oriented x 3, NL Sensation, NL Muscle Strength and Tone Nutrition: Taking PO's Result Diagrams: 11/04/17 06:13 11/04/17 06:13 Additional Lab and Data: Laboratory Results - last 24 hr 11/03/17 11/04/17 11/04/17 16:51 06:13 06:13 WBC 6.9 RBC 3.18 L Hgb 9.6 L Hct 29 L MCV 90 MCH 30 MCHC 33 RDW 17 H Plt Count 309 MPV 7 L Neut % (Auto) 65.7 Lymph % (Auto) 7.4 L [place] % (Auto) 20.1 H Eos % (Auto) 6.6 H Baso % (Auto) 0.2 Absolute Neuts (auto) 4.5 Absolute Lymphs (auto) 0.5 L Absolute Monos (auto) 1.4 H Absolute Eos (auto) 0.5 Absolute Basos (auto) 0 Absolute Nucleated RBC 0 Nucleated RBC % 0.1 Sodium 138 Potassium 3.8 Chloride 98 L Carbon Dioxide 29 Anion Gap 11 BUN 96 H Creatinine 5.89 H Est GFR ( Amer) 12.7 Est GFR (Non-Af Amer) 9.8 BUN/Creatinine Ratio 16.3 Glucose 67 L POC Glucose (mg/dL) 254 H Calcium 8.9 Phosphorus Magnesium 2.1 11/04/17 11/04/17 11/04/17 07:35 11:14 11:34 WBC RBC Hgb Hct MCV MCH MCHC RDW Plt Count MPV Neut % (Auto) Lymph % (Auto) [place] % (Auto) Eos % (Auto) Baso % (Auto) Absolute Neuts (auto) Absolute Lymphs (auto) Absolute Monos (auto) Absolute Eos (auto) Absolute Basos (auto) Absolute Nucleated RBC Nucleated RBC % Sodium Potassium Chloride Carbon Dioxide Anion Gap BUN Creatinine Est GFR ( Amer) Est GFR (Non-Af Amer) BUN/Creatinine Ratio Glucose POC Glucose (mg/dL) 72 193 H Calcium Phosphorus 6.2 H Magnesium 11/04/17 16:32 WBC RBC Hgb Hct MCV MCH MCHC RDW Plt Count MPV Neut % (Auto) Lymph % (Auto) [place] % (Auto) Eos % (Auto) Baso % (Auto) Absolute Neuts (auto) Absolute Lymphs (auto) Absolute Monos (auto) Absolute Eos (auto) Absolute Basos (auto) Absolute Nucleated RBC Nucleated RBC % Sodium Potassium Chloride Carbon Dioxide Anion Gap BUN Creatinine Est GFR ( Amer) Est GFR (Non-Af Amer) BUN/Creatinine Ratio Glucose POC Glucose (mg/dL) 102 H Calcium Phosphorus Magnesium Microbiology and Other Data: Microbiology 11/02/17 11:50 Sputum Gram Stain - Final 11/02/17 11:50 Sputum Sputum Culture - Final YEAST Normal [place] 10/29/17 15:53 Blood Venous Aerobic Blood Culture - Final No Growth Day 5 10/29/17 15:53 Blood Venous Anaerobic Blood Culture - Final No Growth Day 5 10/29/17 15:53 Blood Venous Aerobic Blood Culture - Final No Growth Day 5 10/29/17 15:53 Blood Venous Anaerobic Blood Culture - Final No Growth Day 5 10/29/17 22:37 Blood Bag Transfusion Reaction Culture - Final No Growth Day 5 10/29/17 22:37 Blood Bag Transfusion Reaction Gram Stain - Final 10/29/17 18:34 Nasal Nasal Screen MRSA (PCR)(OLESYA) - Final Mrsa Negative 10/29/17 20:00 Urine Legionella Urinary Antigen - Final Negative Legionella 10/29/17 20:00 Urine Streptococcus pneumoniae Ag Screen - Final Negative S. pneumo Antigen 10/29/17 18:50 Nasal Influenza Types A,B Antigen (OLESYA) - Final Specimen received for Influenza A/B Molecular testing 10/29/17 17:30 Stool Stool Occult Blood (OLESYA) - Final Assess/Plan/Problems-Billing Assessment: 62 yo male H CKD Stage 4, CAD s/p CABG, diastolic CHF, COPD, current smoker 1.5 ppd, Afib on coumadin, IDDM, serving lifetime assisted term(currently [facility]), recent CHF exacerbation p/w with acute hypoxic respiratory failure, increase in weight. Multifactorial thought recurrent volume overload HFpEF in setting of chronic and slowly progressive renal disease. TRANSIT MECHANIC up to 5.9 with stepwise march up last [address] Bear evaluated today - Patient Problems (1) Acute respiratory failure with hypoxia Current Visit: Yes Status: Acute Code(s): J96.01 - ACUTE RESPIRATORY FAILURE WITH HYPOXIA SNOMED Code(s): 67440942 Comment: Multifactorial 2/2 acute diastolic heart failure (most prominent), anemia and COPD with current smoking. Now resolved with diuresis back to likely dry weight. stop cftx today (got 6 days), s/p azithromycin also procalcitonin was negative. (2) CHF (congestive heart failure) Current Visit: No Status: Acute Code(s): I50.9 - HEART FAILURE, UNSPECIFIED SNOMED Code(s): 94204470 Comment: - had gained back all the weight since 1/2 discharge. was discharged on bumex 2mg daily. - daily weights. Down to 207 from 220 upon admission. Dry weight likely ~208- 211. - BNP 916 on admission. - 1.5L Fluid restriction - last metolazone 5mg daily was on 11/02. - currently bumex 2mg po daily - Echo 10/13/17 shows preserved systolic function, EF 60-65%. diastolic dysfunction. Renal dysfunction not helping. (3) CKD (chronic kidney disease) stage 4, GFR 15-29 ml/min Current Visit: No Status: Acute Code(s): N18.4 - CHRONIC KIDNEY DISEASE, STAGE 4 (SEVERE) SNOMED Code(s): 973736131 Comment: - TRANSIT MECHANIC slowly rising 4.5-...->5.9. now Stage V. - Appreciate Dr. Chema perez who was able to see today. HIV, Hep B, Hep C, 24 hour urine collection, MPO, PR3, Quantiferon Gold. - Attempted Transfer to [facility] was not accepted on 11/03. Dr. Morrison [phone] of [facility] called today and said he met with RN at [facility] and suggested would be more likely to be accepted in future if attempted again. (4) Afib Current Visit: Yes Status: Acute Code(s): I48.91 - UNSPECIFIED ATRIAL FIBRILLATION SNOMED Code(s): 30639046 Comment: contine warfarin 6mg daily. INR 1.3. had been held given transfusion requiring anemia. paroxsymal Mg>2, K>4 (5) IDDM (insulin dependent diabetes mellitus) Current Visit: No Status: Acute Code(s): E11.9 - TYPE 2 DIABETES MELLITUS WITHOUT COMPLICATIONS; Z79.4 - WELCOME DESK AGENT (CURRENT) USE OF INSULIN SNOMED Code( s): 16440842 Comment: - BG AC and HS - Last A1c 8.2 - Continue insulin regimen with SS coverage, continue lantus 25U PM, 15U AM (6) S/P CABG x 3 Current Visit: No Status: Acute Code(s): Z95.1 - PRESENCE OF AORTOCORONARY BYPASS GRAFT SNOMED Code(s): 767441335 Comment: - CABG in 2014 - Continue Coreg 25mg BID, ASA 81mg, statin - recent lexiscan 10/13/17 was intermediate (worse at rest), cardiology consulted at time. (7) Anemia Current Visit: Yes Status: Acute Code(s): D64.9 - ANEMIA, UNSPECIFIED SNOMED Code(s): 967025149 Comment: Normocytic. Likely multifactorial from MILVIA and CKD stage IV. Iron 34 , Iron Sat 13%, Ferritin 81 Improving trend. Consideration for epogen if begins HD. Dr. Bear recommending IV venofer. stool occult blood is negative last colonoscopy 2005. haptolgobin not low at admission at 329 (8) PVD (peripheral vascular disease) Current Visit: Yes Status: Acute Code(s): I73.9 - PERIPHERAL VASCULAR DISEASE, UNSPECIFIED SNOMED Code(s): 685424811 Status and Disposition: medicine inpatient. Attending: Davonte Escalera
[2017-11-04] MEDS: Warfarin TAB(*) 6 MG PO SCH (19:05)
[2017-11-04] MEDS ORDERED: CMCS Melatonin (NF) 3 MG TAB PO PRN (21:14)
[2017-11-04] MEDS: Lidocaine PATCH 5%* 1 PATCH TRANSDERM SCH (21:23)
[2017-11-05 06:11] LABS: Hematocrit 29 % (42-52); Mean Corpuscular HGB Conc 35 g/dl (31-36); Mean Corpuscular Hemoglobin 31 pg (27-31); Mean Corpuscular Volume 91 fL (80-94); Mean Platelet Volume 7 um3 (7.4-10.4); Platelet Count 314 10^3/ul (150-450); Red Cell Distribution Width 16 % (10.5-15); White Blood Count 5.6 10^3/ul (3.5-10.8)
[2017-11-05 06:13] LABS: ABS Basophils 0.1 10^3/ul (0-0.2); ABS Eosinophils 0.5 10^3/ul (0-0.6); ABS Lymphocytes 0.7 10^3/ul (1.0-4.8); ABS Monocytes 1.6 10^3/ul (0-0.8); ABS Neutrophils 2.8 10^3/ul (1.5-7.7); ABS Nucleated RBC 0 10^3/ul; Lymphocyte % 13.1 % (25-47); Nucleated Red Blood Cells % 0.2
[2017-11-05 06:23] LABS: INR 1.55 (0.77-1.02)
[2017-11-05 06:34] LABS: EGFR Non-African American 9.4 (>60)
[2017-11-05] MEDS: Mometasone/Formoter 200/5 MDI INH SCH ×2 (07:44→20:14)
[2017-11-05] MEDS: Atorvastatin* 20 MG TAB PO SCH (07:53)
[2017-11-05] MEDS: Isosorbide Mononitrate ER TAB* 30 MG PO SCH (07:53)
[2017-11-05] MEDS: Benzonatate CAP* 100 MG PO SCH ×2 (07:53→20:21)
[2017-11-05] MEDS: Bumetanide TAB* 2 MG PO SCH (07:54)
[2017-11-05] MEDS: Carvedilol TAB* 25 MG PO SCH ×2 (07:54→20:22)
[2017-11-05] MEDS: Insulin GLARGINE(*) 1 UNITS UNIT SUBCUT SCH ×3 (07:54→19:18)
[2017-11-05] MEDS: guaiFENesin LIQ* 100 MG/5 ML UDC PO PRN (07:54)
[2017-11-05] MEDS: Acetaminophen TAB* 325 MG PO PRN ×2 (07:55→20:22)
[2017-11-05] MEDS: Insulin LISPRO* 1 UNITS UNIT SUBCUT SCH ×3 (08:01→17:20)
[2017-11-05] MEDS: Iron Sucrose* 200 MG in NS 0.9% 100 ML* 100 ML IVPB SCH (09:35)
[2017-11-05] MEDS: Famotidine SUSP* 40 MG/5 ML ORAL.SYRIN PO SCH ×2 (09:36→20:31)
[2017-11-05] MEDS: Lidocaine Patch REMOVE* 1 NOTE MISC PATCH OFF SCH (09:36)
--- NOTE | 2017-11-05 10:17 | RAD ---
Indication: Mild dyspnea, cough, worsening over several days. History of coronary artery disease with prior revascularization and chronic obstructive pulmonary disease. Comparison: October 29, 2017 Technique: Upright AP 0945 hours Report: Clear lungs and pleural spaces. Negative for pneumothorax. Median sternotomy wires with interrupted most cephalad wire without change. Negative for cardiomegaly. Unremarkable central pulmonary vasculature. IMPRESSION: No evidence for acute intrathoracic disease.
[2017-11-05] MEDS ORDERED: NS 0.9% IV ONE (11:30)
[2017-11-05] MEDS: Warfarin TAB(*) 6 MG PO SCH (17:20)
--- NOTE | 2017-11-05 17:51 | PN ---
Subjective Date of Service: 11/05/17 Interval History: CAT call this morning when Mr. Wright was found to be lightheaded, diaphoretic, and hypotensive on the toilet after a large bowel movement. His blood pressure improved with about 200cc bolus of NS. BG was also found to be 75 at that time , so he was given one amp of D5. No complaints at this time. Family History: Unchanged from Admission Social History: Unchanged from Admission Past Medical History: Unchanged from Admission Objective Active Medications: Acetaminophen (Tylenol Tab*) 650 mg PO Q4H PRN PRN Reason: FEVER/PAIN Last Admin: 11/05/17 07:55 Dose: 650 mg Albuterol (Ventolin Hfa Inhaler*) 1 puff INH Q4H PRN PRN Reason: SHORTNESS OF BREATH Last Admin: 10/30/17 13:45 Dose: 2 puff Atorvastatin Calcium (Lipitor*) 20 mg PO DAILY [facility] Last Admin: 11/05/17 07:53 Dose: 20 mg Benzonatate (Tessalon Cap*) 100 mg PO Q12H [facility] Last Admin: 11/05/17 07:53 Dose: 100 mg Bumetanide (Bumex Tab*) 2 mg PO DAILY [facility] Last Admin: 11/05/17 07:54 Dose: 2 mg Carvedilol (Coreg Tab*) 25 mg PO BID [facility] Last Admin: 11/05/17 07:54 Dose: 25 mg Dextrose (D50w Syringe 50 Ml*) 12.5 gm IV PUSH .FOR FS < 60 - SS PRN PRN Reason: FS < 60 Last Admin: 11/05/17 09:15 Dose: 25 gm Famotidine (Pepcid Susp*) 10 mg PO BID [facility] PRN Reason: Protocol Last Admin: 11/05/17 09:36 Dose: 10 mg Ferrous Sulfate (Ferrous Sulfate Tab*) 325 mg PO BID [facility] Guaifenesin (Robitussin*) 5 ml PO Q4H PRN PRN Reason: COUGH Last Admin: 11/05/17 07:54 Dose: 5 ml Iron Sucrose 200 mg/ Sodium (Chloride) 110 mls @ 110 mls/hr IVPB DAILY [facility] Stop: 11/09/17 11:59 Last Admin: 11/05/17 09:35 Dose: 110 mls/hr Insulin Glargine (Lantus(*)) 15 units SUBCUT QPM [facility] Last Admin: 11/05/17 17:21 Dose: 15 units Insulin Glargine (Lantus(*)) 25 units SUBCUT QAM [facility] Last Admin: 11/05/17 07:54 Dose: 25 units Insulin Human Lispro (Humalog*) 0 units SUBCUT AC [facility] PRN Reason: Protocol Last Admin: 11/05/17 17:20 Dose: 6 units Isosorbide Mononitrate (Imdur Er Tab*) 30 mg PO DAILY [facility] Last Admin: 11/05/17 07:53 Dose: 30 mg Lidocaine (Lidoderm 5% Patch*) 1 patch TRANSDERM 2100 [facility] Last Admin: 11/04/17 21:23 Dose: 1 patch Melatonin (Melatonin (Nf)) 3 mg PO BEDTIME PRN; Protocol PRN Reason: Sleep Last Admin: 11/04/17 23:41 Dose: 3 mg Mometasone Furoate/Formoterol Fumar (Dulera 200/5 Mdi*) 2 puff INH BID [facility] PRN Reason: Protocol Last Admin: 11/05/17 07:44 Dose: 2 puff Ondansetron HCl (Zofran Inj*) 4 mg IV Q6H PRN PRN Reason: NAUSEA Last Admin: 10/30/17 08:21 Dose: 4 mg Pharmacy Profile Note (Lidocaine Patch Remove*) 1 note PATCH OFF 0900 [facility] Last Admin: 11/05/17 09:36 Dose: 1 note Warfarin Sodium (Coumadin Tab(*)) 6 mg PO DAILY@1700 [facility] PRN Reason: Protocol Last Admin: 11/05/17 17:20 Dose: 6 mg Vital Signs - 8 hr 11/05/17 11/05/17 11:13 15:15 Temperature 97.6 F 98.1 F Pulse Rate 59 66 Respiratory 20 Rate Blood Pressure 99/35 120/52 (mmHg) O2 Sat by Pulse 100 100 Oximetry Oxygen Devices in Use Now: Nasal Cannula Appearance: obese, no distress Eyes: No Scleral Icterus Ears/Nose/Mouth/Throat: NL Teeth, Lips, Gums Neck: NL Appearance and Movements; NL JVP Respiratory: Symmetrical Chest Expansion and Respiratory Effort, Clear to Auscultation Cardiovascular: NL Sounds; No Murmurs; No JVD, No Edema Lymphatic: No Cervical Adenopathy Extremities: No Edema Skin: No Rash or Ulcers Neurological: Alert and Oriented x 3, - - no asterixis Result Diagrams: 11/05/17 05:31 11/05/17 05:31 Additional Lab and Data: Laboratory Results - last 24 hr 11/03/17 11/04/17 11/04/17 16:51 06:13 06:13 WBC 6.9 RBC 3.18 L Hgb 9.6 L Hct 29 L MCV 90 MCH 30 MCHC 33 RDW 17 H Plt Count 309 MPV 7 L Neut % (Auto) 65.7 Lymph % (Auto) 7.4 L [place] % (Auto) 20.1 H Eos % (Auto) 6.6 H Baso % (Auto) 0.2 Absolute Neuts (auto) 4.5 Absolute Lymphs (auto) 0.5 L Absolute Monos (auto) 1.4 H Absolute Eos (auto) 0.5 Absolute Basos (auto) 0 Absolute Nucleated RBC 0 Nucleated RBC % 0.1 Sodium 138 Potassium 3.8 Chloride 98 L Carbon Dioxide 29 Anion Gap 11 BUN 96 H Creatinine 5.89 H Est GFR ( Amer) 12.7 Est GFR (Non-Af Amer) 9.8 BUN/Creatinine Ratio 16.3 Glucose 67 L POC Glucose (mg/dL) 254 H Calcium 8.9 Phosphorus Magnesium 2.1 11/04/17 11/04/17 11/04/17 07:35 11:14 11:34 WBC RBC Hgb Hct MCV MCH MCHC RDW Plt Count MPV Neut % (Auto) Lymph % (Auto) [place] % (Auto) Eos % (Auto) Baso % (Auto) Absolute Neuts (auto) Absolute Lymphs (auto) Absolute Monos (auto) Absolute Eos (auto) Absolute Basos (auto) Absolute Nucleated RBC Nucleated RBC % Sodium Potassium Chloride Carbon Dioxide Anion Gap BUN Creatinine Est GFR ( Amer) Est GFR (Non-Af Amer) BUN/Creatinine Ratio Glucose POC Glucose (mg/dL) 72 193 H Calcium Phosphorus 6.2 H Magnesium 11/04/17 16:32 WBC RBC Hgb Hct MCV MCH MCHC RDW Plt Count MPV Neut % (Auto) Lymph % (Auto) [place] % (Auto) Eos % (Auto) Baso % (Auto) Absolute Neuts (auto) Absolute Lymphs (auto) Absolute Monos (auto) Absolute Eos (auto) Absolute Basos (auto) Absolute Nucleated RBC Nucleated RBC % Sodium Potassium Chloride Carbon Dioxide Anion Gap BUN Creatinine Est GFR ( Amer) Est GFR (Non-Af Amer) BUN/Creatinine Ratio Glucose POC Glucose (mg/dL) 102 H Calcium Phosphorus Magnesium Microbiology and Other Data: Microbiology 11/02/17 11:50 Sputum Gram Stain - Final 11/02/17 11:50 Sputum Sputum Culture - Final YEAST Normal Beverly 10/29/17 15:53 Blood Venous Aerobic Blood Culture - Final No Growth Day 5 10/29/17 15:53 Blood Venous Anaerobic Blood Culture - Final No Growth Day 5 10/29/17 15:53 Blood Venous Aerobic Blood Culture - Final No Growth Day 5 10/29/17 15:53 Blood Venous Anaerobic Blood Culture - Final No Growth Day 5 10/29/17 22:37 Blood Bag Transfusion Reaction Culture - Final No Growth Day 10/29/17 22:37 Blood Bag Transfusion Reaction Gram Stain - Final 10/29/17 18:34 Nasal Nasal Screen MRSA (PCR)(OLESYA) - Final Mrsa Negative 10/29/17 20:00 Urine Legionella Urinary Antigen - Final Negative Legionella 10/29/17 20:00 Urine Streptococcus pneumoniae Ag Screen - Final Negative S. pneumo Antigen 10/29/17 18:50 Nasal Influenza Types A,B Antigen (OLESYA) - Final Specimen received for Influenza A/B Molecular testing 10/29/17 17:30 Stool Stool Occult Blood (OLESYA) - Final Assess/Plan/Problems-Billing Assessment: 62 yo male H CKD Stage 4, CAD s/p CABG, diastolic CHF, COPD, current smoker 1.5 ppd, Afib on coumadin, IDDM, serving lifetime [facility] term(currently [facility]), recent CHF exacerbation p/w with acute hypoxic respiratory failure, increase in weight. Multifactorial thought recurrent volume overload HFpEF in setting of chronic and slowly progressive renal disease. 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 Bear evaluated today - Patient Problems (1) Acute respiratory failure with hypoxia Current Visit: Yes Status: Acute Code(s): J96.01 - ACUTE RESPIRATORY FAILURE WITH HYPOXIA SNOMED Code(s): 55587859 Comment: Likely volume overload from renal failure; also has heart failure Received ceftriaxone/azithromycin (received 6 days) for CAP At this point, he appears to be euvolemic, in fact may have been over-diuresed given his hypotension this morning. Continue po bumex as planned for outpatient. (2) CKD (chronic kidney disease) stage 4, GFR 15-29 ml/min Current Visit: No Status: Acute Code(s): N18.4 - CHRONIC KIDNEY DISEASE, STAGE 4 (SEVERE) SNOMED Code(s): 038212350 Comment: now Stage V. HIV, Hep B, Hep C, 24 hour urine collection, MPO, PR3, Quantiferon Gold are pending No indication for urgent/emergent dialysis at this time, however he will need close follow up with nephrology, HD access, and HD within the next few weeks I suspect. We will need to coordinate this with [facility], as he may not be able to follow up with Dr. Bear. Sebastián holman, volume okay, no evidence of uremia or acidemia (3) IDDM (insulin dependent diabetes mellitus) Current Visit: No Status: Acute Code(s): E11.9 - TYPE 2 DIABETES MELLITUS WITHOUT COMPLICATIONS; Z79.4 - CORRECTION (CURRENT) USE OF INSULIN SNOMED Code( s): 41967376 Comment: he did have one episode of relative hypoglycemia this morning, likely related to worsening renal function. Decrease pm lantus tonight. (4) S/P CABG x 3 Current Visit: No Status: Acute Code(s): Z95.1 - PRESENCE OF AORTOCORONARY BYPASS GRAFT SNOMED Code(s): 514020600 Comment: - CABG in 2014 - Continue Coreg 25mg BID, ASA 81mg, statin - recent lexiscan 10/13/17 was intermediate (worse at rest), cardiology consulted at time. Status and Disposition: medicine inpatient.
[2017-11-05] MEDS: Lidocaine PATCH 5%* 1 PATCH TRANSDERM SCH (20:20)
[2017-11-05] MEDS: Senna TAB PO SCH (20:21)
[2017-11-05] MEDS: Docusate CAP* 100 MG PO SCH (20:22)
[2017-11-06] MEDS: guaiFENesin LIQ* 100 MG/5 ML UDC PO PRN (00:41)
[2017-11-06 05:58] LABS: ABS Basophils 0.1 10^3/ul (0-0.2); ABS Eosinophils 0.5 10^3/ul (0-0.6); ABS Lymphocytes 0.9 10^3/ul (1.0-4.8); ABS Monocytes 1.5 10^3/ul (0-0.8); ABS Neutrophils 3.2 10^3/ul (1.5-7.7); ABS Nucleated RBC 0 10^3/ul; Eosinophil % 7.4 % (0-6); Hematocrit 29 % (42-52); Hemoglobin 9.5 g/dl (14.0-18.0); Lymphocyte % 15.3 % (25-47); Mean Corpuscular HGB Conc 33 g/dl (31-36); Mean Corpuscular Hemoglobin 30 pg (27-31); Mean Corpuscular Volume 91 fL (80-94); Mean Platelet Volume 7 um3 (7.4-10.4); Nucleated Red Blood Cells % 0.1; Platelet Count 298 10^3/ul (150-450); Red Blood Count 3.18 10^6/ul (4.0-5.4); Red Cell Distribution Width 16 % (10.5-15); White Blood Count 6.1 10^3/ul (3.5-10.8)
[2017-11-06 06:13] LABS: EGFR Non-African American 9.4 (>60)
[2017-11-06 06:20] LABS: INR 1.71 (0.77-1.02)
[2017-11-06] MEDS: Mometasone/Formoter 200/5 MDI INH SCH ×2 (08:00→20:28)
[2017-11-06] MEDS: Insulin LISPRO* 1 UNITS UNIT SUBCUT SCH ×3 (08:18→17:36)
[2017-11-06] MEDS: Carvedilol TAB* 25 MG PO SCH ×2 (09:40→20:38)
[2017-11-06] MEDS: Bumetanide TAB* 2 MG PO SCH (09:40)
[2017-11-06] MEDS: Isosorbide Mononitrate ER TAB* 30 MG PO SCH (09:40)
[2017-11-06] MEDS: Senna TAB PO SCH (09:54)
[2017-11-06] MEDS: Benzonatate CAP* 100 MG PO SCH ×2 (09:54→20:38)
[2017-11-06] MEDS: Iron Sucrose* 200 MG in NS 0.9% 100 ML* 100 ML IVPB SCH (09:55)
[2017-11-06] MEDS: Atorvastatin* 20 MG TAB PO SCH (09:55)
[2017-11-06] MEDS: Docusate CAP* 100 MG PO SCH (09:55)
[2017-11-06] MEDS: Insulin GLARGINE(*) 1 UNITS UNIT SUBCUT SCH ×2 (09:55→17:34)
[2017-11-06] MEDS: Famotidine SUSP* 40 MG/5 ML ORAL.SYRIN PO SCH ×2 (09:55→20:43)
[2017-11-06] MEDS: Calcium Acetate CAP* 667 MG PO SCH ×3 (09:56→17:34)
[2017-11-06] MEDS: Lidocaine Patch REMOVE* 1 NOTE MISC PATCH OFF SCH (12:23)
--- NOTE | 2017-11-06 15:33 | CONS ---
NEPHROLOGY CONSULTATION REPORT: DATE OF CONSULT: 11/06/17 HISTORY OF PRESENT ILLNESS: Mr. Wright is a 62-year-old gentleman, who presented because of worsening shortness of breath and chest tightness. He also had generalized malaise. While in the hospital, he was found to have worsening renal function precipitating this consultation. At the time that I saw him, he was feeling somewhat better with regard to his shortness of breath. He had minimal cough and previously had noted flecks of blood in his sputum. He had no nausea or vomiting. No diarrhea. No dysuria, frequency, or urgency. Previous medical history is significant for COPD. He has been known to have stage 4 chronic kidney disease, the etiology of which is undetermined. This was first noted at the time of coronary artery bypass grafting. He has a history of diastolic congestive heart failure with a maintained ejection fraction of 60% to 65%. There is a history of tuberculosis. He has a history of diabetes mellitus, type 2, and a history of peripheral vascular disease. Previous surgical history significant for carotid endarterectomy as well as the previously mentioned coronary artery bypass grafting. MEDICATIONS: His medications at the time of admission include: 1. Amlodipine 10 mg daily. 2. Ventolin 1 puff every 4 hours p.r.n. 3. Advair 2 puffs b.i.d. 4. Bumex 2 mg daily. 5. Lantus 25 units in the morning, 15 at bedtime. 6. Warfarin 6 mg daily. 7. Aspirin 81 mg daily. 8. Imdur 30 mg daily. 9. Carvedilol 25 mg twice a day. 10. Ranitidine mg b.i.d. 11. Calcium carbonate 1 b.i.d. 12. Iron sulfate 325 mg b.i.d. 13. Lipitor 20 mg daily. ALLERGIES: He is allergic to [employer]. SOCIAL HISTORY: He is incarcerated. He smokes about 10 cigarettes per day. REVIEW OF SYSTEMS: Significant that he was noted to have atrial fibrillation around the time of his coronary artery bypass grafting. He had no visual disturbances, no swallowing difficulties. He does have some pain radiating down his right leg from his right hip. Otherwise is unremarkable. PHYSICAL EXAM: He is a well-developed, gentleman. His blood pressure was 121/57 with a pulse of 69, respiratory rate of 20. He is normocephalic without evidence of trauma. He is anicteric. His extraocular muscles are intact. Mucous membranes are moist. There is no jugular venous distention. Chest is clear. Heart revealed a regular rhythm and without murmurs. The abdomen is soft and nontender. He had no significant edema. DIAGNOSTIC STUDIES/LAB DATA: While in the hospital, he has been diuresed somewhat and witnessed his creatinine has gone up from at admission of 4.53 to 6.16 at this point. He has had an ultrasound of his kidneys, which revealed slightly small size with cortical echogenicity. No evidence of obstruction. IMPRESSION: It is likely that he has hypertensive/diabetic nephropathy. He does have a history of peripheral vascular disease. He has had coronary artery disease and had endarterectomy. So, atherosclerotic nephrosclerosis is probably a significant contributor here. At the present time, he does not have the indication to proceed to dialysis. However, he certainly does have very significant chronic renal insufficiency. I recommended a 24-hour urine for total protein just to be complete, a serum C and P ANCA. I would think it would be appropriate in the fairly near future to make preparations for future dialysis. My understanding is that the [facility] would want that to happen through another facility. At the present time, I would not change his medications. Obviously, should avoid nonsteroidal antiinflammatory drugs and contrast agents. I have discussed the case with Dr. Karimi. [id number]/[facility] #: [id number] MTDD
[2017-11-06] MEDS: Warfarin TAB(*) 6 MG PO SCH (17:34)
--- NOTE | 2017-11-06 18:33 | PN ---
Subjective Date of Service: 11/06/17 Interval History: sleepy, walked without any trouble. He does note that he sleeps more during the day and less at night, and foods taste differently. Family History: Unchanged from Admission Social History: Unchanged from Admission Past Medical History: Unchanged from Admission Objective Active Medications: Acetaminophen (Tylenol Tab*) 650 mg PO Q4H PRN PRN Reason: FEVER/PAIN Last Admin: 11/05/17 20:22 Dose: 650 mg Albuterol (Ventolin Hfa Inhaler*) 1 puff INH Q4H PRN PRN Reason: SHORTNESS OF BREATH Last Admin: 10/30/17 13:45 Dose: 2 puff Atorvastatin Calcium (Lipitor*) 20 mg PO DAILY [facility] Last Admin: 11/06/17 09:55 Dose: 20 mg Benzonatate (Tessalon Cap*) 100 mg PO Q12H [facility] Last Admin: 11/06/17 09:54 Dose: 100 mg Bumetanide (Bumex Tab*) 2 mg PO DAILY [facility] Last Admin: 11/06/17 09:40 Dose: Not Given Calcium Acetate (Phoslo Cap*) 667 mg PO TID WITH MEALS [facility] Last Admin: 11/06/17 17:34 Dose: 667 mg Carvedilol (Coreg Tab*) 25 mg PO BID [facility] Last Admin: 11/06/17 09:40 Dose: Not Given Dextrose (D50w Syringe 50 Ml*) 12.5 gm IV PUSH .FOR FS < 60 - SS PRN PRN Reason: FS < 60 Last Admin: 11/05/17 09:15 Dose: 25 gm Docusate Sodium (Colace Cap*) 100 mg PO DAILY [facility] Last Admin: 11/06/17 09:55 Dose: 100 mg Famotidine (Pepcid Susp*) 10 mg PO BID [facility] PRN Reason: Protocol Last Admin: 11/06/17 09:55 Dose: 10 mg Ferrous Sulfate (Ferrous Sulfate Tab*) 325 mg PO BID [facility] Guaifenesin (Robitussin*) 5 ml PO Q4H PRN PRN Reason: COUGH Last Admin: 11/06/17 00:41 Dose: 5 ml Iron Sucrose 200 mg/ Sodium (Chloride) 110 mls @ 110 mls/hr IVPB DAILY [facility] Stop: 11/09/17 11:59 Last Admin: 11/06/17 09:55 Dose: 110 mls/hr Insulin Glargine (Lantus(*)) 25 units SUBCUT QAM [facility] Last Admin: 11/06/17 09:55 Dose: 25 units Insulin Glargine (Lantus(*)) 12 units SUBCUT QPM [facility] Last Admin: 11/06/17 17:34 Dose: 12 units Insulin Human Lispro (Humalog*) 0 units SUBCUT AC [facility] PRN Reason: Protocol Last Admin: 11/06/17 17:36 Dose: Not Given Isosorbide Mononitrate (Imdur Er Tab*) 30 mg PO DAILY [facility] Last Admin: 11/06/17 09:40 Dose: Not Given Lidocaine (Lidoderm 5% Patch*) 1 patch TRANSDERM 2100 [facility] Last Admin: 11/05/17 20:20 Dose: 1 patch Melatonin (Melatonin (Nf)) 3 mg PO BEDTIME PRN; Protocol PRN Reason: Sleep Last Admin: 11/04/17 23:41 Dose: 3 mg Mometasone Furoate/Formoterol Fumar (Dulera 200/5 Mdi*) 2 puff INH BID [facility] PRN Reason: Protocol Last Admin: 11/06/17 08:00 Dose: 2 puff Ondansetron HCl (Zofran Inj*) 4 mg IV Q6H PRN PRN Reason: NAUSEA Last Admin: 10/30/17 08:21 Dose: 4 mg Pharmacy Profile Note (Lidocaine Patch Remove*) 1 note PATCH OFF 0900 [facility] Last Admin: 11/06/17 12:23 Dose: 1 note Senna (Senokot Tab*) 1 tab PO DAILY [facility] Last Admin: 11/06/17 09:54 Dose: 1 tab Warfarin Sodium (Coumadin Tab(*)) 6 mg PO DAILY@1700 [facility] PRN Reason: Protocol Last Admin: 11/06/17 17:34 Dose: 6 mg Vital Signs - 8 hr 11/06/17 11/06/17 11/06/17 11:25 15:19 15:26 Temperature 98.5 F 99.0 F Pulse Rate 61 61 76 Respiratory 20 18 Rate Blood Pressure 114/41 124/52 112/53 (mmHg) O2 Sat by Pulse 100 100 Oximetry Oxygen Devices in Use Now: Nasal Cannula Appearance: sleepy, no distress Eyes: No Scleral Icterus Ears/Nose/Mouth/Throat: NL Teeth, Lips, Gums Neck: NL Appearance and Movements; NL JVP Respiratory: Symmetrical Chest Expansion and Respiratory Effort Cardiovascular: - - systolic murmur throughout Abdominal: NL Sounds; No Tenderness; No Distention Lymphatic: No Cervical Adenopathy Extremities: No Edema Skin: No Rash or Ulcers Neurological: Alert and Oriented x 3, - - +asterixis Result Diagrams: 11/06/17 05:48 11/06/17 05:48 Additional Lab and Data: Laboratory Results - last 24 hr 11/03/17 11/04/17 11/04/17 16:51 06:13 06:13 WBC 6.9 RBC 3.18 L Hgb 9.6 L Hct 29 L MCV 90 MCH 30 MCHC 33 RDW 17 H Plt Count 309 MPV 7 L Neut % (Auto) 65.7 Lymph % (Auto) 7.4 L Sierra % (Auto) 20.1 H Eos % (Auto) 6.6 H Baso % (Auto) 0.2 Absolute Neuts (auto) 4.5 Absolute Lymphs (auto) 0.5 L Absolute Monos (auto) 1.4 H Absolute Eos (auto) 0.5 Absolute Basos (auto) 0 Absolute Nucleated RBC 0 Nucleated RBC % 0.1 Sodium 138 Potassium 3.8 Chloride 98 L Carbon Dioxide 29 Anion Gap 11 BUN 96 H Creatinine 5.89 H Est GFR ( Amer) 12.7 Est GFR (Non-Af Amer) 9.8 BUN/Creatinine Ratio 16.3 Glucose 67 L POC Glucose (mg/dL) 254 H Calcium 8.9 Phosphorus Magnesium 2.1 11/04/17 11/04/17 11/04/17 07:35 11:14 11:34 WBC RBC Hgb Hct MCV MCH MCHC RDW Plt Count MPV Neut % (Auto) Lymph % (Auto) Sierra % (Auto) Eos % (Auto) Baso % (Auto) Absolute Neuts (auto) Absolute Lymphs (auto) Absolute Monos (auto) Absolute Eos (auto) Absolute Basos (auto) Absolute Nucleated RBC Nucleated RBC % Sodium Potassium Chloride Carbon Dioxide Anion Gap BUN Creatinine Est GFR ( Amer) Est GFR (Non-Af Amer) BUN/Creatinine Ratio Glucose POC Glucose (mg/dL) 72 193 H Calcium Phosphorus 6.2 H Magnesium 11/04/17 16:32 WBC RBC Hgb Hct MCV MCH MCHC RDW Plt Count MPV Neut % (Auto) Lymph % (Auto) Sierra % (Auto) Eos % (Auto) Baso % (Auto) Absolute Neuts (auto) Absolute Lymphs (auto) Absolute Monos (auto) Absolute Eos (auto) Absolute Basos (auto) Absolute Nucleated RBC Nucleated RBC % Sodium Potassium Chloride Carbon Dioxide Anion Gap BUN Creatinine Est GFR ( Amer) Est GFR (Non-Af Amer) BUN/Creatinine Ratio Glucose POC Glucose (mg/dL) 102 H Calcium Phosphorus Magnesium Microbiology and Other Data: Microbiology 11/02/17 11:50 Sputum Gram Stain - Final 11/02/17 11:50 Sputum Sputum Culture - Final YEAST Normal [place] 10/29/17 15:53 Blood Venous Aerobic Blood Culture - Final No Growth Day 5 10/29/17 15:53 Blood Venous Anaerobic Blood Culture - Final No Growth Day 5 10/29/17 15:53 Blood Venous Aerobic Blood Culture - Final No Growth Day 5 10/29/17 15:53 Blood Venous Anaerobic Blood Culture - Final No Growth Day 5 10/29/17 22:37 Blood Bag Transfusion Reaction Culture - Final No Growth Day 5 10/29/17 22:37 Blood Bag Transfusion Reaction Gram Stain - Final 10/29/17 18:34 Nasal Nasal Screen MRSA (PCR)(OLESYA) - Final Mrsa Negative 10/29/17 20:00 Urine Legionella Urinary Antigen - Final Negative Legionella 10/29/17 20:00 Urine Streptococcus pneumoniae Ag Screen - Final Negative S. pneumo Antigen 10/29/17 18:50 Nasal Influenza Types A,B Antigen (OLESYA) - Final Specimen received for Influenza A/B Molecular testing 10/29/17 17:30 Stool Stool Occult Blood (OLESYA) - Final Assess/Plan/Problems-Billing Assessment: 62 yo male [facility] CKD Stage 4, CAD s/p CABG, diastolic CHF, COPD, current smoker 1.5 ppd, Afib on coumadin, IDDM, serving lifetime [facility] term(currently [facility]), recent CHF exacerbation p/w with acute hypoxic respiratory failure, increase in weight. Multifactorial thought recurrent volume overload HFpEF in setting of chronic and slowly progressive renal disease. 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 Bear evaluated today - Patient Problems (1) Acute respiratory failure with hypoxia Current Visit: Yes Status: Acute Code(s): J96.01 - ACUTE RESPIRATORY FAILURE WITH HYPOXIA SNOMED Code(s): 10293270 Comment: Likely volume overload from renal failure; also has heart failure Received ceftriaxone/azithromycin (received 6 days) for CAP At this point, he appears to be euvolemic, in fact may have been over-diuresed given his hypotension this morning. Continue po bumex as planned for outpatient. (2) CKD (chronic kidney disease) stage 4, GFR 15-29 ml/min Current Visit: No Status: Acute Code(s): N18.4 - CHRONIC KIDNEY DISEASE, STAGE 4 (SEVERE) SNOMED Code(s): 922049397 Comment: now Stage V. HIV, Hep B, Hep C, 24 hour urine collection, MPO, PR3, Quantiferon Gold are pending No indication for urgent/emergent dialysis at this time, however he will need close follow up with nephrology, HD access, and HD within the next few weeks I suspect. We will need to coordinate this with [facility], as he may not be able to follow up with Dr. Bear. At this point, uremia may be the indication for dialysis soon. He shows signs of uremia with daytime sleepiness and asterixis. 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 Status and Disposition: medicine inpatient.
[2017-11-06] MEDS: Lidocaine PATCH 5%* 1 PATCH TRANSDERM SCH (20:45)
[2017-11-07 06:00] LABS: ABS Basophils 0.1 10^3/ul (0-0.2); ABS Eosinophils 0.6 10^3/ul (0-0.6); ABS Lymphocytes 1.1 10^3/ul (1.0-4.8); ABS Monocytes 1.3 10^3/ul (0-0.8); ABS Neutrophils 3.5 10^3/ul (1.5-7.7); ABS Nucleated RBC 0 10^3/ul; Eosinophil % 9.1 % (0-6); Hematocrit 30 % (42-52); Hemoglobin 9.8 g/dl (14.0-18.0); Lymphocyte % 16.2 % (25-47); Mean Corpuscular HGB Conc 33 g/dl (31-36); Mean Corpuscular Hemoglobin 30 pg (27-31); Mean Corpuscular Volume 91 fL (80-94); Mean Platelet Volume 7 um3 (7.4-10.4); Nucleated Red Blood Cells % 0; Platelet Count 297 10^3/ul (150-450); Red Blood Count 3.27 10^6/ul (4.0-5.4); Red Cell Distribution Width 17 % (10.5-15); White Blood Count 6.5 10^3/ul (3.5-10.8)
[2017-11-07 06:13] LABS: INR 1.79 (0.77-1.02)
[2017-11-07 06:21] LABS: EGFR Non-African American 10.1 (>60)
[2017-11-07] MEDS: Mometasone/Formoter 200/5 MDI INH SCH ×2 (07:30→20:08)
[2017-11-07] MEDS ORDERED: Insulin GLARGINE(*) 1 UNITS UNIT SUBCUT SCH ×3 (07:32→13:28)
[2017-11-07] MEDS: Insulin LISPRO* 1 UNITS UNIT SUBCUT SCH ×3 (07:40→16:54)
[2017-11-07] MEDS ORDERED: Dextrose 50% Syringe 50 ML* 25 GM/50 ML SYRINGE IV PUSH PRN (07:42)
[2017-11-07] MEDS: Isosorbide Mononitrate ER TAB* 30 MG PO SCH (09:33)
[2017-11-07] MEDS: Docusate CAP* 100 MG PO SCH (09:33)
[2017-11-07] MEDS: Carvedilol TAB* 25 MG PO SCH ×2 (09:33→10:07)
[2017-11-07] MEDS: Calcium Acetate CAP* 667 MG PO SCH ×3 (09:33→17:38)
[2017-11-07] MEDS: Senna TAB PO SCH (09:33)
[2017-11-07] MEDS: Bumetanide TAB* 2 MG PO SCH (09:35)
[2017-11-07] MEDS: Benzonatate CAP* 100 MG PO SCH (09:35)
[2017-11-07] MEDS: guaiFENesin LIQ* 100 MG/5 ML UDC PO PRN (09:36)
[2017-11-07] MEDS: Atorvastatin* 20 MG TAB PO SCH (09:36)
[2017-11-07] MEDS: Famotidine SUSP* 40 MG/5 ML ORAL.SYRIN PO SCH (09:50)
[2017-11-07] MEDS: Iron Sucrose* 200 MG in NS 0.9% 100 ML* 100 ML IVPB SCH (09:51)
[2017-11-07] MEDS: Lidocaine Patch REMOVE* 1 NOTE MISC PATCH OFF SCH (09:57)
[2017-11-07] MEDS: Acetaminophen TAB* 325 MG PO PRN (17:38)
[2017-11-07] MEDS: Warfarin TAB(*) 6 MG PO SCH (17:38)
[2017-11-07 18:18] VITALS: BP 120/63
[2017-11-08] MEDS ORDERED: Insulin GLARGINE(*) 1 UNITS UNIT SUBCUT SCH (08:00)
[2017-11-10] MEDS ORDERED: Ferrous Sulfate TAB* 325 MG PO SCH (21:00)
== END 2017-11-07 19:30 | DRG 133 ==
LOC: ED 14:50 → MEDTELE 18:30 → EEVIPCON 18:30
PROVIDERS: ADMIT Internal Medicine; ATTEND Internal Medicine
PROC: 30233N1 Transfusion of Nonautologous Red Blood Cells into Peripheral Vein, Percutaneous Approach (ICD-10-PCS; principal; 2017-10-29)
DX: J96.01 Acute respiratory failure with hypoxia (principal); I50.33 Acute on chronic diastolic (congestive) heart failure; J18.9 Pneumonia, unspecified organism; I95.89 Other hypotension; E11.51 Type 2 diabetes mellitus with diabetic peripheral angiopathy without gangrene; E11.21 Type 2 diabetes mellitus with diabetic nephropathy; I13.0 Hypertensive heart and chronic kidney disease with heart failure and stage 1 through stage 4 chronic kidney disease, or unspecified chronic kidney disease; I08.1 Rheumatic disorders of both mitral and tricuspid valves; N18.4 Chronic kidney disease, stage 4 (severe); E11.22 Type 2 diabetes mellitus with diabetic chronic kidney disease; I25.10 Atherosclerotic heart disease of native coronary artery without angina pectoris; J44.9 Chronic obstructive pulmonary disease, unspecified; E78.5 Hyperlipidemia, unspecified; F41.9 Anxiety disorder, unspecified; F17.210 Nicotine dependence, cigarettes, uncomplicated; D63.1 Anemia in chronic kidney disease; E11.649 Type 2 diabetes mellitus with hypoglycemia without coma; R27.8 Other lack of coordination; R26.9 Unspecified abnormalities of gait and mobility; I48.0 Paroxysmal atrial fibrillation; Z88.8 Allergy status to other drugs, medicaments and biological substances; Z95.1 Presence of aortocoronary bypass graft; Z82.49 Family history of ischemic heart disease and other diseases of the circulatory system; Z86.11 Personal history of tuberculosis; Z87.441 Personal history of nephrotic syndrome; Z83.3 Family history of diabetes mellitus; Z79.4 Long term (current) use of insulin; Z79.01 Long term (current) use of anticoagulants; Z79.82 Long term (current) use of aspirin
CPT/HCPCS: 36415; 71045; 80048; 80053; 80076; 82272; 82533; 82607; 82668; 82728; 82746; 82947; 83010; 83036; 83516; 83540; 83550; 83605; 83615; 83735; 83880; 83921; 84100; 84145; 84156; 84443; 84466; 84484; 85014; 85018; 85025; 85027; 85045; 85379; 85610; 86078; 86140; 86480; 86703; 86704; 86706; 86803; 86850; 86900; 86901; 86922; 87040; 87070; 87205; 87340; 87502; 87641; 87899; 93005; 94640; 94760; 96374; 99284; A9270-GY; J0456; J0696; J1756; J2270; J2405; P9040